=== PATIENT | female | born 1945 | race Two or more races ===

== ENCOUNTER 2017-01-03 22:28 | Emergency (ER) | payer MEDICAID ==
[~2017-01-03] VITALS: Ht 154.9 cm; Wt 59.0 kg
[2017-01-03] MEDS ORDERED: ASPIRIN81 MG ORAL (22:38)
[2017-01-03] MEDS ORDERED: Lidocaine 1% 10mg/ml/EPI 0.01mg/ml 50ml INJ ONE (22:45)
[2017-01-03] MEDS ORDERED: Lidocaine 2% 20mg/ml/Epi 0.005mg/ml 20ml vial ONE (22:51)
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
[2017-01-03] MEDS ORDERED: Augmentin 875mg Tab ORAL ONE (23:15)
[2017-01-03 23:57] VITALS: BP 134/72
[2017-01-04] MEDS ORDERED: Lidocaine 2% 20mg/ml/Epi 0.005mg/ml 20ml vial INJ ONE
[2017-01-04] MEDS ORDERED: AUGMENTIN 875-1 EAC1 ORAL (00:16)
[2017-01-04] MEDS ORDERED: TYLENOL325 MG ORAL (00:16)
[2017-01-04] MEDS ORDERED: IBUPROFEN600 MG ORAL (00:16)
[2017-01-04 00:30] VITALS: BP 134/65
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
== END 2017-01-04 00:30 | disposition home or self-care (01) ==
LOC: EMR 22:56
DX: S01.531A Puncture wound without foreign body of lip, initial encounter (principal); S00.83XA Contusion of other part of head, initial encounter; V49.50XA Passenger injured in collision with unspecified motor vehicles in traffic accident, initial encounter; Y92.89 Other specified places as the place of occurrence of the external cause; I10 Essential (primary) hypertension; B69.0 Cysticercosis of central nervous system
CPT/HCPCS: 12011; 70450; 70486; 99284; Z7502

== ENCOUNTER 2018-04-12 03:08 | Inpatient (IN) | payer MEDICAID ==
[2018-04-12] VITALS (7 sets, daily range): BP systolic 108–144; BP diastolic 49–69
[~2018-04-12] VITALS: Ht 144.8 cm; Wt 66.7 kg
[~2018-04-12 03:08] MED LIST: ASPIRIN81 MG ORAL; AUGMENTIN 875-1 EAC1 ORAL; IBUPROFEN600 MG ORAL; TYLENOL325 MG ORAL
[2018-04-12] MEDS ORDERED: Morphine Sulfate 2mg/ml Inj IVP ONE (03:30)
--- NOTE | 2018-04-12 03:34 | Emergency Room Report ---
History of Present Illness General Chief Complaint: Nausea, Vomiting, and Diarrhea Source: Patient, Medical Record Present Illness HPI Is a 73-year-old female with history high blood pressure. She presents with chief complaint of body pain with nausea vomiting and diarrhea. Also with dysuria. She had dysuria frequency. 2 weeks. Saw her doctor 3 days ago and prescribed Keflex. She's only been on it for 3 days. She's also has nausea and vomiting and diarrhea for the last week. Diarrhea is small and frequent. Has generalized body pain. It is 8 out of 10. Allergies: Coded Allergies: No Known Allergies (Unverified , 01/03/17) Patient History Past Medical History: see triage record, old chart reviewed, HTN Past Surgical History: other Pertinent Family History: none Social History: Denies: smoking Now: No Immunizations: other Reviewed Nursing Documentation: PMH: Agreed; PSxH: Agreed Nursing Documentation-PMH Past Medical History: No History, Except For Hx Hypertension: Yes Hx Gastrointestinal Problems: Yes - Gastritis Review of Systems Eye: Denies: eye pain, blurred vision ENT: Denies: ear pain, nose congestion, throat swelling Respiratory: Denies: cough, shortness of breath Cardiovascular: Denies: chest pain, palpitations Gastrointestinal: Reports: diarrhea, nausea, vomiting; Denies: abdominal pain Genitourinary: Reports: dysuria Musculoskeletal: Denies: back pain, joint pain Skin: Denies: rash Neurological: Denies: headache, numbness Endocrine: Denies: increased thirst, increased urine Hematologic/Lymphatic: Denies: easy bruising All Other Systems: negative except mentioned in HPI Physical Exam Vital Signs Date Time Temp Pulse Resp B/P (MAP) Pulse Ox O2 Delivery O2 Flow Rate FiO2 04/12/18 03:13 97.9 74 25 161/80 93 Room Air 97.9 vitals with high blood pressure Sp02 EP Interpretation: reviewed, normal General Appearance: well appearing, no apparent distress, alert Head: normocephalic, atraumatic Eyes: bilateral eye PERRL, bilateral eye EOMI ENT: hearing grossly normal, normal pharynx Neck: full range of motion, supple, no meningismus Respiratory: chest non-tender, lungs clear, normal breath sounds Cardiovascular #1: regular rate, rhythm, no murmur Gastrointestinal: normal bowel sounds, non tender, no mass, no organomegaly, no bruit, non-distended Musculoskeletal: back normal, gait/station normal, normal range of motion Neurologic: alert, oriented x3 Psychiatric: mood/affect normal Skin: warm/dry Medical Decision Making Diagnostic Impression: Primary Impression: Hyponatremia Additional Impression: Nausea, vomiting, and diarrhea ER Course Patient presents with protracted diarrhea and has hyponatremia. No evidence of UTI. No evidence of sepsis. Patient hydrated here. Will admit versus transfer based on insurance. I discussed case with Dr. Richardson who will admit. Lab Results Impression labs with hyponatremia Rhythm Strip Diag. Results Rhythm Strip Time: 05:06 EP Interpretation: yes Rate: 65 Rhythm: NSR, no PVC's, no ectopy Chest X-Ray Diagnostic Results Chest X-Ray Diagnostic Results : Chest X-Ray Ordered: Yes # of Views/Limited/Complete: 1 View Indication: Shortness of Breath EP Interpretation: Yes Interpretation: no consolidation, no effusion, no pneumothorax, no acute cardiopulmonary disease Impression: No acute disease Electronically Signed by: Armando Nolasco MD Last Vital Signs Date Time Temp Pulse Resp B/P (MAP) Pulse Ox O2 Delivery O2 Flow Rate FiO2 04/12/18 03:13 97.9 74 25 161/80 93 Room Air 97.9 Status: improved Disposition: ADMITTED INPATIENT Condition: Serious Referrals: NOT CHOSEN TEAGAN/,REFERRING (PCP) ARMANDO NOLASCO M.D. Apr 12, 2018 03:34
[2018-04-12 04:15] LABS: APPEARANCE,URINE CLEAR; BILIRUBIN, URINE NEGATIVE (NEGATIVE); COLOR,URINE BROWN; GLUCOSE, URINE (UA) NEGATIVE (NEGATIVE); KETONES,URINE NEGATIVE (NEGATIVE); LEUKOCYTE ESTERASE ,URINE NEGATIVE (NEGATIVE); NITRITE,URINE NEGATIVE (NEGATIVE); PH,URINE 7 (4.5-8.0); PROTEIN,URINE NEGATIVE (NEGATIVE); UROBILINOGEN,URINE NORMAL MG/DL (0.0-1.0)
[2018-04-12 04:17] LABS: BASOPHILS % (AUTO) 1.2 % (0.0-2.0); EOSINOPHILS % (AUTO) 1.6 % (0.0-3.0); HEMATOCRIT 35.5 % (37.0-47.0); HEMOGLOBIN 12.4 G/DL (12.0-16.0); LYMPHOCYTES % (AUTO) 22.2 % (20.0-45.0); MEAN CORPUSCULAR VOLUME 78 FL (80-99); MONOCYTES % (AUTO) 12.3 % (1.0-10.0); NEUTROPHILS % (AUTO) 62.8 % (45.0-75.0); PLATELET COUNT 298 K/UL (150-450); RED BLOOD COUNT 4.56 M/UL (4.20-5.40); RED CELL DISTRIBUTION WIDTH 10.5 % (11.6-14.8); WHITE BLOOD COUNT 5.8 K/UL (4.8-10.8)
[2018-04-12 04:43] LABS: ALANINE AMINOTRANSFERASE 27 U/L (12-78); ALBUMIN 3.3 G/DL (3.4-5.0); ALBUMIN/GLOBULIN RATIO 0.8 (1.0-2.7); ALKALINE PHOSPHATASE 84 U/L (46-116); ANION GAP 9 mmol/L (5-15); ASPARTATE AMINO TRANSFERASE 46 U/L (15-37); BILIRUBIN,TOTAL 1.1 MG/DL (0.2-1.0); BLOOD UREA NITROGEN 4 mg/dL (7-18); CALCIUM 8.9 MG/DL (8.5-10.1); CARBON DIOXIDE 23 MMOL/L (21-32); CHLORIDE 86 MMOL/L (98-107); CREATININE 0.6 MG/DL (0.55-1.30); SODIUM 118 MMOL/L (136-145)
[2018-04-12 04:44] LABS: BILIRUBIN,DIRECT 0.1 MG/DL (0.0-0.3)
[2018-04-12] MEDS ORDERED: OMEPRAZOLE20 M2 ORAL (05:41)
[2018-04-12] MEDS ORDERED: HYDROCHLOROTH12.5 M2 ORAL (05:41)
[2018-04-12] MEDS ORDERED: Morphine Sulfate 2mg/ml Inj IVP PRN (06:00)
[2018-04-12] MEDS ORDERED: CEPHALEXIN500 MG ORAL (07:17)
[2018-04-12] MEDS: Aspirin Baby 81mg ORAL SCH (09:21)
[2018-04-12] MEDS: Heparin 5000 units/ml inj SUBQ SCH ×2 (09:22→20:51)
--- NOTE | 2018-04-12 12:02 | Diagnostic Imaging Report ---
Indication: Shortness of breath Technique: One view of the chest Comparison: Findings: Lungs and pleural spaces are clear. Heart size is normal Impression: No acute process
[2018-04-12 14:11] LABS: APPEARANCE,URINE CLEAR; BILIRUBIN, URINE NEGATIVE (NEGATIVE); GLUCOSE, URINE (UA) NEGATIVE (NEGATIVE); KETONES,URINE NEGATIVE (NEGATIVE); LEUKOCYTE ESTERASE ,URINE NEGATIVE (NEGATIVE); NITRITE,URINE NEGATIVE (NEGATIVE); PH,URINE 7 (4.5-8.0); PROTEIN,URINE NEGATIVE (NEGATIVE); UROBILINOGEN,URINE NORMAL MG/DL (0.0-1.0)
[2018-04-12 14:21] LABS: COLOR,URINE YELLOW
--- NOTE | 2018-04-12 14:22 | Consultation ---
History of Present Illness General Date patient seen: Apr 12, 2018 Chief Complaint: Nausea, Vomiting, and Diarrhea Present Illness HPI 73-year-old female with PMHx of high blood pressure presented to ER with chief complaint of body pain with nausea vomiting and diarrhea and dysuria, frequency for 2 weeks. . She's also has nausea and vomiting and diarrhea for the last week. Diarrhea is small and frequent. She was found to have Na of 118 and admitted to telemetry for further work up. Allergies: Coded Allergies: No Known Allergies (Unverified , 01/03/17) Medication History Scheduled Aspirin* (Aspirin*), 81 MG ORAL DAILY, (Reported) Cephalexin* (Keflex*), 500 MG ORAL EVERY 6 HOURS, (Reported) Hydrochlorothiazide* (Hydrochlorothiazide*), 12.5 MG ORAL DAILY, (Reported) Omeprazole (Omeprazole), 20 MG ORAL DAILY, (Reported) Scheduled PRN Acetaminophen (Tylenol), 650 MG ORAL Q8HR PRN for Prn Pain/Headache/Temp > 101 Patient History Healthcare decision maker Teresa Chan (son) Resuscitation status Full Code Advanced Directive on File No Past Medical/Surgical History Past Medical/Surgical History: (1) History of hypertension Review of Systems Constitutional: Reports: weakness Gastrointestinal: Reports: diarrhea, nausea Physical Exam General Appearance: WD/WN Lines, tubes and drains: peripheral HEENT: normocephalic, anicteric Neck: non-tender, normal alignment Respiratory/Chest: chest wall non-tender, lungs clear, normal breath sounds Breasts: no masses Cardiovascular/Chest: normal peripheral pulses Genitourinary/Rectal: normal genital exam Extremities: normal range of motion Last 24 Hour Vital Signs Date Time Temp Pulse Resp B/P (MAP) Pulse Ox O2 Delivery O2 Flow Rate FiO2 04/12/18 11:45 97.7 66 20 129/68 (88) 96 97.7 04/12/18 09:49 Room Air 04/12/18 08:00 97.7 63 20 112/58 (76) 97 97.7 04/12/18 06:45 98.0 69 14 108/49 96 Room Air 04/12/18 06:45 97.4 70 18 128/65 (86) 97 97.4 04/12/18 06:25 98.0 69 14 108/49 98 Room Air 98.0 04/12/18 04:33 97.2 65 14 144/69 96 Room Air 97.2 04/12/18 03:13 97.9 74 25 161/80 93 Room Air 97.9 Intake and Output 04/11/18 04/12/18 19:00 07:00 Intake Total 2000 ml Balance 2000 ml IV Total 2000 ml Laboratory Tests Test 04/12/18 03:21 04/12/18 03:57 04/12/18 06:45 04/12/18 13:39 Urine Color Brown Yellow Urine Appearance Clear Clear Urine pH 7 (4.5-8.0) 7 (4.5-8.0) Urine Specific [place]wn 1.005 (1.005-1.035) 1.005 (1.005-1.035) Urine Protein Negative (NEGATIVE) Negative (NEGATIVE) Urine Glucose (UA) Negative (NEGATIVE) Negative (NEGATIVE) Urine Ketones Negative (NEGATIVE) Negative (NEGATIVE) Urine Blood Negative (NEGATIVE) Negative (NEGATIVE) Urine Nitrite Negative (NEGATIVE) Negative (NEGATIVE) Urine Bilirubin Negative (NEGATIVE) Negative (NEGATIVE) Urine Urobilinogen Normal MG/DL (0.0-1.0) Normal MG/DL (0.0-1.0) Urine Leukocyte Esterase Negative (NEGATIVE) Negative (NEGATIVE) Urine RBC 0-2 /HPF (0 - 2) Pending Urine WBC 0-2 /HPF (0 - 2) Pending Urine Squamous Epithelial Cells Occasional /LPF Pending Urine Bacteria Occasional /HPF (NONE) Pending White Blood Count 5.8 K/UL (4.8-10.8) Red Blood Count 4.56 M/UL (4.20-5.40) Hemoglobin 12.4 G/DL (12.0-16.0) Hematocrit 35.5 % (37.0-47.0) L Mean Corpuscular Volume 78 FL (80-99) L Mean Corpuscular Hemoglobin 27.1 PG (27.0-31.0) Mean Corpuscular Hemoglobin Concent 34.8 G/DL (32.0-36.0) Red Cell Distribution Width 10.5 % (11.6-14.8) L Platelet Count 298 K/UL (150-450) Mean Platelet Volume 6.6 FL (6.5-10.1) Neutrophils (%) (Auto) 62.8 % (45.0-75.0) Lymphocytes (%) (Auto) 22.2 % (20.0-45.0) Monocytes (%) (Auto) 12.3 % (1.0-10.0) H Eosinophils (%) (Auto) 1.6 % (0.0-3.0) Basophils (%) (Auto) 1.2 % (0.0-2.0) Sodium Level 118 MMOL/L (136-145) *L Potassium Level 4.0 MMOL/L (3.5-5.1) Chloride Level 86 MMOL/L (98-107) L Carbon Dioxide Level 23 MMOL/L (21-32) Anion Gap 9 mmol/L (5-15) Blood Urea Nitrogen 4 mg/dL (7-18) L Creatinine 0.6 MG/DL (0.55-1.30) Estimat Glomerular Filtration Rate mL/min (>60) Glucose Level 107 MG/DL (74-106) H Calcium Level 8.9 MG/DL (8.5-10.1) Total Bilirubin 1.1 MG/DL (0.2-1.0) H Direct Bilirubin 0.1 MG/DL (0.0-0.3) Aspartate Amino Transf (AST/SGOT) 46 U/L (15-37) H Alanine Aminotransferase (ALT/SGPT) 27 U/L (12-78) Alkaline Phosphatase 84 U/L (46-116) Total Protein 7.7 G/DL (6.4-8.2) Albumin 3.3 G/DL (3.4-5.0) L Globulin 4.4 g/dL Albumin/Globulin Ratio 0.8 (1.0-2.7) L Osmolality 264 mOsm/kg (297-317) L Uric Acid 1.5 MG/DL (2.6-7.2) L Thyroid Stimulating Hormone (TSH) 1.334 uiU/mL (0.358-3.740) Free Thyroxine 1.57 NG/DL (0.76-1.46) H Free Triiodothyronine 2.7 pg/mL (2.3-4.2) Cortisol Pending Urine Osmolality Pending Urine Random Sodium Pending Height (Feet): 4 Height (Inches): 9.00 Weight (Pounds): 147 Medications Current Medications Medications (Trade) Dose Ordered Sig/Margot Route PRN Reason Start Time Stop Time Status Last Admin Dose Admin Acetaminophen (Tylenol) 650 mg Q8HR PRN ORAL Prn Pain/Headache/Temp > 101 04/12/18 06:00 05/12/18 05:59 Aspirin (ASA) 81 mg DAILY ORAL 04/12/18 09:00 05/12/18 08:59 04/12/18 09:21 Dextrose (Dextrose 50%) 25 ml STAT PRN IV Hypoglycemia 04/12/18 06:00 05/12/18 05:59 Dextrose (Dextrose 50%) 50 ml STAT PRN IV Hypoglycemia 04/12/18 06:00 05/12/18 05:59 Dextrose/ Electrolytes 1,000 ml @ 100 mls/hr Q10H IV 04/12/18 06:52 05/12/18 06:51 04/12/18 09:34 Diphenhydramine HCl (Benadryl) 25 mg Q6H PRN ORAL Itching/Pruritis 04/12/18 06:00 05/12/18 05:59 Heparin Sodium (Porcine) (Heparin 5000 units/ml) 5,000 units EVERY 12 HOURS SUBQ 04/12/18 09:00 05/12/18 08:59 04/12/18 09:22 Morphine Sulfate (Morphine Sulfate) 2 mg Q6HR PRN IVP Severe Breakthru Pain (>7) 04/12/18 06:00 04/19/18 05:59 Ondansetron HCl (Zofran) 4 mg Q6H PRN IVP Nausea & Vomiting 04/12/18 06:00 05/12/18 05:59 Assessment/Plan Problem List: (1) Hyponatremia ICD Codes: E87.1 - Hypo-osmolality and hyponatremia; R19.7 - Diarrhea, unspecified SNOMED: 77083035 (2) History of hypertension ICD Codes: Z86.79 - Personal history of other diseases of the circulatory system SNOMED: 395751429 (3) Nausea, vomiting, and diarrhea ICD Codes: R11.2 - Nausea with vomiting, unspecified; R19.7 - Diarrhea, unspecified SNOMED: 6199941 Assessment/Plan hyponatremia secondary to HCTZ and diarrhea. IV fluids SIADH work up symptomatic treatment monitor BP urine and stool samples. Sharyn Allred MD Apr 12, 2018 14:22
--- NOTE | 2018-04-12 18:57 | History & Physical ---
History and Physical History & Physicial Dictated for Int Med-Dr Richardson no. [id number]. Shane Yousif MD Apr 12, 2018 18:57
--- NOTE | 2018-04-12 22:45 | History and Physical Report ---
DATE OF ADMISSION: 04/12/2018 CHIEF COMPLAINT: The patient is a 73-year-old female, who presents with chief complaint of "I wasn't feeling well." HISTORY OF PRESENT ILLNESS: The patient was diagnosed by her primary care physician with urinary tract infection on Sunday, April 08, 2018. The patient was discharged home with an unknown antibiotic. The patient states she continued to not feel well. The patient had subjective fevers and chills. The patient also had nausea, vomiting, and diarrhea. The patient presented to [facility]. The patient was found to be severely hyponatremic with sodium of 118. The patient was admitted for hyponatremia and urinary tract infection. REVIEW OF SYSTEMS: CONSTITUTIONAL: The patient denies weight loss or weight gain. The patient denies fever or chills. HEENT: The patient denies ear or throat pain. The patient denies headache. CARDIOVASCULAR: The patient denies palpitations or chest pain. CHEST: The patient denies wheeze or shortness of breath. ABDOMINAL: The patient denies nausea, vomiting, diarrhea, or constipation. GENITOURINARY: The patient denies dysuria or increased frequency of urination. NEUROMUSCULAR: The patient denies seizures or generalized weakness. PAST MEDICAL HISTORY: Significant for hypertension. PAST SURGICAL HISTORY: The patient denies. CURRENT MEDICATIONS: 1. Hydrochlorothiazide 12.5 mg p.o. daily. 2. Omeprazole 20 mg p.o. daily. 3. Aspirin 81 mg p.o. daily. ALLERGIES: No known drug allergies. SOCIAL HISTORY: The patient is and lives with her . The patient denies tobacco or alcohol use. PHYSICAL EXAMINATION: VITAL SIGNS: Temperature 98.0, respirations 14, pulse 69, blood pressure 108/49. GENERAL: The patient is a well-developed, well-nourished female, in no apparent distress. HEENT: Eyes, pupils equal and responsive to light and accommodation. Extraocular movements are intact. NECK: Supple. No lymphadenopathy. CHEST: Clear to auscultation bilaterally without wheezes or rales. CARDIOVASCULAR: Regular rate. S1, S2 normal without murmurs, rubs, or gallops. ABDOMEN: Soft, nontender, and nondistended with positive bowel sounds. No evidence of hepatosplenomegaly. Currently, no rebound or guarding noted. EXTREMITIES: Negative for clubbing, cyanosis, or edema. RECTAL: Refused. GENITAL: Refused. NEUROLOGIC: Cranial nerves II through XII are grossly intact without focal deficits. Motor strength is 5/5 bilaterally intact. Deep tendon reflexes are 2+, plantar. LABORATORY STUDIES: WBC 5.8, hemoglobin 12.4, hematocrit 35.5, platelets 298,000. Sodium 118, potassium 4.0, chloride 86, CO2 23, BUN 4, creatinine 0.6, glucose 107. Urine osmolality 264. ASSESSMENT: This is a 73-year-old female with: 1. Hyponatremia. 2. Urinary tract infection. 3. Hypertension. TREATMENT: 1. Hyponatremia. The patient is currently receiving normal saline intravenously. A repeat sodium level is pending. A Nephrology consultation has been obtained with Dr. Black. Hyponatremia may be secondary to hydrochlorothiazide versus SIADH. We will follow recommendations of Nephrology. 2. Urinary tract infection. The patient has received Keflex for a total of 5 days. 3. Hypertension. The patient is currently hypotensive. Hold antihypertensive medications for now. Shane Yousif M.D. DR: Augustine JOB#: [id number] CC:
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
[2018-04-13] VITALS: BP 99/51
[2018-04-13 04:00] VITALS: BP 120/68
[2018-04-13 07:01] LABS: BASOPHILS % (AUTO) 2.4 % (0.0-2.0); EOSINOPHILS % (AUTO) 1.5 % (0.0-3.0); HEMATOCRIT 34.3 % (37.0-47.0); HEMOGLOBIN 11.6 G/DL (12.0-16.0); LYMPHOCYTES % (AUTO) 10.4 % (20.0-45.0); MEAN CORPUSCULAR VOLUME 82 FL (80-99); MONOCYTES % (AUTO) 13.5 % (1.0-10.0); NEUTROPHILS % (AUTO) 72.1 % (45.0-75.0); PLATELET COUNT 247 K/UL (150-450); RED CELL DISTRIBUTION WIDTH 11.7 % (11.6-14.8); WHITE BLOOD COUNT 4.9 K/UL (4.8-10.8)
[2018-04-13 07:34] LABS: ALANINE AMINOTRANSFERASE 29 U/L (12-78); ALBUMIN 2.9 G/DL (3.4-5.0); ALBUMIN/GLOBULIN RATIO 0.8 (1.0-2.7); ALKALINE PHOSPHATASE 76 U/L (46-116); ANION GAP 7 mmol/L (5-15); ASPARTATE AMINO TRANSFERASE 22 U/L (15-37); BILIRUBIN,TOTAL 0.5 MG/DL (0.2-1.0); BLOOD UREA NITROGEN 4 mg/dL (7-18); CALCIUM 8.5 MG/DL (8.5-10.1); CARBON DIOXIDE 24 MMOL/L (21-32); CHLORIDE 105 MMOL/L (98-107); CREATININE 0.8 MG/DL (0.55-1.30); PHOSPHORUS 2.7 MG/DL (2.5-4.9); POTASSIUM 4.3 MMOL/L (3.5-5.1); SODIUM 136 MMOL/L (136-145)
[2018-04-13 08:00] VITALS: BP 129/67
[2018-04-13] MEDS: Aspirin Baby 81mg ORAL SCH (08:28)
[2018-04-13] MEDS: Heparin 5000 units/ml inj SUBQ SCH ×2 (08:29→20:14)
[2018-04-13] MEDS ORDERED: Tubing IV Secondary IV ONE (10:51)
[2018-04-13 12:00] VITALS: BP 126/73
--- NOTE | 2018-04-13 12:49 | Pulmonology Progress Note ---
Assessment/Plan Problems: (1) Hyponatremia (2) History of hypertension (3) Nausea, vomiting, and diarrhea Assessment/Plan Na better decrease IV fluids monitor BP, since pt has hx of hypertension symptomatic treatment dvt prophylaxis check labs in am dc planning soon if continues to improve. Subjective ROS Limited/Unobtainable: No Constitutional: Reports: no symptoms Allergies: Coded Allergies: No Known Allergies (Unverified , 01/03/17) Objective Last 24 Hour Vital Signs Date Time Temp Pulse Resp B/P (MAP) Pulse Ox O2 Delivery O2 Flow Rate FiO2 04/13/18 12:00 98.2 65 18 126/73 (90) 98 98.2 04/13/18 09:00 Room Air 04/13/18 08:00 97.5 81 19 129/67 (87) 98 97.5 04/13/18 04:00 97.9 71 18 120/68 (85) 97 97.9 04/13/18 00:00 97.9 80 18 99/51 (67) 95 97.9 04/12/18 21:00 Room Air 04/12/18 20:00 98.6 76 17 130/64 (86) 97 98.6 04/12/18 15:32 97.9 64 21 120/66 (84) 99 97.9 Intake and Output 04/12/18 04/13/18 19:00 07:00 Intake Total 1910 ml 1000 ml Balance 1910 ml 1000 ml Intake Oral 960 ml IV Total 950 ml 1000 ml # Voids 4 4 # Bowel Movements 2 General Appearance: WD/WN HEENT: normocephalic Respiratory/Chest: chest wall non-tender, lungs clear Breasts: no masses Cardiovascular: normal peripheral pulses Abdomen: normal bowel sounds, soft, non tender, no scars Extremities: no clubbing Neurologic/Psychiatric: communication spec II-XII grossly normal Lymphatic: no neck adenopathy Laboratory Tests 04/12/18 13:39: Urine Color Yellow, Urine Appearance Clear, Urine pH 7, Urine Specific Prue 1.005, Urine Protein Negative, Urine Glucose (UA) Negative, Urine Ketones Negative, Urine Blood Negative, Urine Nitrite Negative, Urine Bilirubin Negative , Urine Urobilinogen Normal, Urine Leukocyte Esterase Negative, Urine RBC 0-2, Urine WBC 0-2, Urine Squamous Epithelial Cells Few, Urine Bacteria Few, Urine Osmolality 105L, Urine Random Sodium 28 04/13/18 06:20: White Blood Count 4.9, Red Blood Count 4.20, Hemoglobin 11.6L, Hematocrit 34.3L , Mean Corpuscular Volume 82, Mean Corpuscular Hemoglobin 27.6, Mean Corpuscular Hemoglobin Concent 33.8, Red Cell Distribution Width 11.7, Platelet Count 247, Mean Platelet Volume 6.7, Neutrophils (%) (Auto) 72.1, Lymphocytes (% ) (Auto) 10.4L, Monocytes (%) (Auto) 13.5H, Eosinophils (%) (Auto) 1.5, Basophils (%) (Auto) 2.4H, Prothrombin Time 10.1, Prothromb Time International Ratio 1.0, Activated Partial Thromboplast Time 26, Sodium Level 136, Potassium Level 4.3, Chloride Level 105, Carbon Dioxide Level 24, Anion Gap 7, Blood Urea Nitrogen 4L, Creatinine 0.8, Estimat Glomerular Filtration Rate , Glucose Level 92, Calcium Level 8.5, Phosphorus Level 2.7, Magnesium Level 2.1, Total Bilirubin 0.5, Aspartate Amino Transf (AST/SGOT) 22, Alanine Aminotransferase ( ALT/SGPT) 29, Alkaline Phosphatase 76, Total Protein 6.6, Albumin 2.9L, Globulin 3.7, Albumin/Globulin Ratio 0.8L, Thyroid Stimulating Hormone (TSH) 0.749 Current Medications Medications (Trade) Dose Ordered Sig/Margot Route PRN Reason Start Time Stop Time Status Last Admin Dose Admin Acetaminophen (Tylenol) 650 mg Q8HR PRN ORAL Prn Pain/Headache/Temp > 101 04/12/18 06:00 05/12/18 05:59 Aspirin (ASA) 81 mg DAILY ORAL 04/12/18 09:00 05/12/18 08:59 04/13/18 08:28 Dextrose (Dextrose 50%) 25 ml STAT PRN IV Hypoglycemia 04/12/18 06:00 05/12/18 05:59 Dextrose (Dextrose 50%) 50 ml STAT PRN IV Hypoglycemia 04/12/18 06:00 05/12/18 05:59 Dextrose/ Electrolytes 1,000 ml @ 100 mls/hr Q10H IV 04/12/18 06:52 05/12/18 06:51 04/13/18 08:30 Diphenhydramine HCl (Benadryl) 25 mg Q6H PRN ORAL Itching/Pruritis 04/12/18 06:00 05/12/18 05:59 Heparin Sodium (Porcine) (Heparin 5000 units/ml) 5,000 units EVERY 12 HOURS SUBQ 04/12/18 09:00 05/12/18 08:59 04/13/18 08:29 Morphine Sulfate (Morphine Sulfate) 2 mg Q6HR PRN IVP Severe Breakthru Pain (>7) 04/12/18 06:00 04/19/18 05:59 Ondansetron HCl (Zofran) 4 mg Q6H PRN IVP Nausea & Vomiting 04/12/18 06:00 05/12/18 05:59 Sharyn Allred MD Apr 13, 2018 12:49
--- NOTE | 2018-04-13 15:07 | Consultation ---
History of Present Illness General Date patient seen: Apr 13, 2018 Time patient seen: 15:00 Chief Complaint: Nausea, Vomiting, and Diarrhea Present Illness HPI 73 year old female patient came in due to headache 1 week ago, nausea and vomiting 2 weeks ago, diarrhea 1 week ago. She had a urinary tract infection and was on antibiotics. She has a hx of HTN. She was admitted for hyponatremia wtih NA 118. No head trauma, no increased/ decreased urination. Cardiology consulted for chest pain, palpitations, PVCs. Allergies: Coded Allergies: No Known Allergies (Unverified , 01/03/17) Medication History Scheduled Aspirin* (Aspirin*), 81 MG ORAL DAILY, (Reported) Cephalexin* (Keflex*), 500 MG ORAL EVERY 6 HOURS, (Reported) Hydrochlorothiazide* (Hydrochlorothiazide*), 12.5 MG ORAL DAILY, (Reported) Omeprazole (Omeprazole), 20 MG ORAL DAILY, (Reported) Scheduled PRN Acetaminophen (Tylenol), 650 MG ORAL Q8HR PRN for Prn Pain/Headache/Temp > 101 Patient History Healthcare decision maker Teresa Chan (son) Resuscitation status Full Code Advanced Directive on File No Review of Systems Constitutional: Reports: no symptoms Eye: Reports: no symptoms ENT: Reports: no symptoms Respiratory: Reports: no symptoms Cardiovascular: Reports: chest pain, palpitations Gastrointestinal: Reports: no symptoms Genitourinary: Reports: no symptoms Musculoskeletal: Reports: no symptoms Skin: Reports: no symptoms Psychiatric: Reports: no symptoms Neurological: Reports: headache Endocrine: Reports: no symptoms Hematologic/Lymphatic: Reports: no symptoms Physical Exam General Appearance: no apparent distress, alert Lines, tubes and drains: peripheral HEENT: normocephalic, atraumatic Neck: non-tender, normal alignment Respiratory/Chest: chest wall non-tender, lungs clear Cardiovascular/Chest: normal peripheral pulses, normal rate Abdomen: normal bowel sounds, non tender Extremities: normal range of motion, non-tender Skin Exam: normal pigmentation, warm/dry, cyanotic 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 Last 24 Hour Vital Signs Date Time Temp Pulse Resp B/P (MAP) Pulse Ox O2 Delivery O2 Flow Rate FiO2 04/13/18 12:00 98.2 65 18 126/73 (90) 98 98.2 04/13/18 09:00 Room Air 04/13/18 08:00 97.5 81 19 129/67 (87) 98 97.5 04/13/18 04:00 97.9 71 18 120/68 (85) 97 97.9 04/13/18 00:00 97.9 80 18 99/51 (67) 95 97.9 04/12/18 21:00 Room Air 04/12/18 20:00 98.6 76 17 130/64 (86) 97 98.6 04/12/18 15:32 97.9 64 21 120/66 (84) 99 97.9 Intake and Output 04/12/18 04/13/18 19:00 07:00 Intake Total 1910 ml 1000 ml Balance 1910 ml 1000 ml Intake Oral 960 ml IV Total 950 ml 1000 ml # Voids 4 4 # Bowel Movements 2 Laboratory Tests Test 04/13/18 06:20 White Blood Count 4.9 K/UL (4.8-10.8) Red Blood Count 4.20 M/UL (4.20-5.40) Hemoglobin 11.6 G/DL (12.0-16.0) L Hematocrit 34.3 % (37.0-47.0) L Mean Corpuscular Volume 82 FL (80-99) Mean Corpuscular Hemoglobin 27.6 PG (27.0-31.0) Mean Corpuscular Hemoglobin Concent 33.8 G/DL (32.0-36.0) Red Cell Distribution Width 11.7 % (11.6-14.8) Platelet Count 247 K/UL (150-450) Mean Platelet Volume 6.7 FL (6.5-10.1) Neutrophils (%) (Auto) 72.1 % (45.0-75.0) Lymphocytes (%) (Auto) 10.4 % (20.0-45.0) L Monocytes (%) (Auto) 13.5 % (1.0-10.0) H Eosinophils (%) (Auto) 1.5 % (0.0-3.0) Basophils (%) (Auto) 2.4 % (0.0-2.0) H Prothrombin Time 10.1 SEC (9.30-11.50) Prothromb Time International Ratio 1.0 (0.9-1.1) Activated Partial Thromboplast Time 26 SEC (23-33) Sodium Level 136 MMOL/L (136-145) Potassium Level 4.3 MMOL/L (3.5-5.1) Chloride Level 105 MMOL/L (98-107) Carbon Dioxide Level 24 MMOL/L (21-32) Anion Gap 7 mmol/L (5-15) Blood Urea Nitrogen 4 mg/dL (7-18) L Creatinine 0.8 MG/DL (0.55-1.30) Estimat Glomerular Filtration Rate mL/min (>60) Glucose Level 92 MG/DL (74-106) Calcium Level 8.5 MG/DL (8.5-10.1) Phosphorus Level 2.7 MG/DL (2.5-4.9) Magnesium Level 2.1 MG/DL (1.8-2.4) Total Bilirubin 0.5 MG/DL (0.2-1.0) Aspartate Amino Transf (AST/SGOT) 22 U/L (15-37) Alanine Aminotransferase (ALT/SGPT) 29 U/L (12-78) Alkaline Phosphatase 76 U/L (46-116) Total Protein 6.6 G/DL (6.4-8.2) Albumin 2.9 G/DL (3.4-5.0) L Globulin 3.7 g/dL Albumin/Globulin Ratio 0.8 (1.0-2.7) L Thyroid Stimulating Hormone (TSH) 0.749 uiU/mL (0.358-3.740) Height (Feet): 4 Height (Inches): 9.00 Weight (Pounds): 147 Medications Current Medications Medications (Trade) Dose Ordered Sig/Margot Route PRN Reason Start Time Stop Time Status Last Admin Dose Admin Acetaminophen (Tylenol) 650 mg Q8HR PRN ORAL Prn Pain/Headache/Temp > 101 04/12/18 06:00 05/12/18 05:59 Aspirin (ASA) 81 mg DAILY ORAL 04/12/18 09:00 05/12/18 08:59 04/13/18 08:28 Dextrose (Dextrose 50%) 25 ml STAT PRN IV Hypoglycemia 04/12/18 06:00 05/12/18 05:59 Dextrose (Dextrose 50%) 50 ml STAT PRN IV Hypoglycemia 04/12/18 06:00 05/12/18 05:59 Dextrose/ Electrolytes 1,000 ml @ 50 mls/hr Q20H IV 04/13/18 14:00 05/13/18 13:59 04/13/18 14:16 Diphenhydramine HCl (Benadryl) 25 mg Q6H PRN ORAL Itching/Pruritis 04/12/18 06:00 05/12/18 05:59 Heparin Sodium (Porcine) (Heparin 5000 units/ml) 5,000 units EVERY 12 HOURS SUBQ 04/12/18 09:00 05/12/18 08:59 04/13/18 08:29 Morphine Sulfate (Morphine Sulfate) 2 mg Q6HR PRN IVP Severe Breakthru Pain (>7) 04/12/18 06:00 04/19/18 05:59 Ondansetron HCl (Zofran) 4 mg Q6H PRN IVP Nausea & Vomiting 04/12/18 06:00 05/12/18 05:59 Assessment/Plan Status: stable Assessment/Plan Assessment: 1. Hyponatremia. 2. Urinary tract infection. 3. Hypertension. 4. PVC Plan: D/c HCTZ as it can cause hyponatremia Monitor BP IV fluids Abx for UTI Monitor PVCs Outpatient echocardiogram/stress test Aspirin urine electrolytes Dispo planning Matthew Henderson MD Apr 13, 2018 15:07
[2018-04-13 16:00] VITALS: BP 120/69
--- NOTE | 2018-04-13 16:59 | Internal Med Progress Note ---
Subjective Date of Service: Apr 13, 2018 Physician Name Shane Yousif Attending Physician Manuel Richardson MD Current Medications Medications (Trade) Dose Ordered Sig/Margot Route PRN Reason Start Time Stop Time Status Last Admin Dose Admin Acetaminophen (Tylenol) 650 mg Q8HR PRN ORAL Prn Pain/Headache/Temp > 101 04/12/18 06:00 05/12/18 05:59 Aspirin (ASA) 81 mg DAILY ORAL 04/12/18 09:00 05/12/18 08:59 04/13/18 08:28 Dextrose (Dextrose 50%) 25 ml STAT PRN IV Hypoglycemia 04/12/18 06:00 05/12/18 05:59 Dextrose (Dextrose 50%) 50 ml STAT PRN IV Hypoglycemia 04/12/18 06:00 05/12/18 05:59 Dextrose/ Electrolytes 1,000 ml @ 50 mls/hr Q20H IV 04/13/18 14:00 05/13/18 13:59 04/13/18 14:16 Diphenhydramine HCl (Benadryl) 25 mg Q6H PRN ORAL Itching/Pruritis 04/12/18 06:00 05/12/18 05:59 Heparin Sodium (Porcine) (Heparin 5000 units/ml) 5,000 units EVERY 12 HOURS SUBQ 04/12/18 09:00 05/12/18 08:59 04/13/18 08:29 Morphine Sulfate (Morphine Sulfate) 2 mg Q6HR PRN IVP Severe Breakthru Pain (>7) 04/12/18 06:00 04/19/18 05:59 Ondansetron HCl (Zofran) 4 mg Q6H PRN IVP Nausea & Vomiting 04/12/18 06:00 05/12/18 05:59 Allergies: Coded Allergies: No Known Allergies (Unverified , 01/03/17) ROS Limited/Unobtainable: No Constitutional: Reports: no symptoms HEENT: Reports: no symptoms Cardiovascular: Reports: no symptoms Respiratory: Reports: no symptoms Gastrointestinal/Abdominal: Reports: no symptoms Genitourinary: Reports: no symptoms Neurologic/Psychiatric: Reports: no symptoms Subjective 73 YO F admitted with altered mental status, now hyponatremia. Cover for Int Figueroa-Dr Richardson Objective Last Vital Signs Date Time Temp Pulse Resp B/P (MAP) Pulse Ox O2 Delivery O2 Flow Rate FiO2 04/13/18 12:00 98.2 65 18 126/73 (90) 98 98.2 04/13/18 09:00 Room Air Laboratory Tests Test 04/13/18 06:20 White Blood Count 4.9 K/UL (4.8-10.8) Red Blood Count 4.20 M/UL (4.20-5.40) Hemoglobin 11.6 G/DL (12.0-16.0) L Hematocrit 34.3 % (37.0-47.0) L Mean Corpuscular Volume 82 FL (80-99) Mean Corpuscular Hemoglobin 27.6 PG (27.0-31.0) Mean Corpuscular Hemoglobin Concent 33.8 G/DL (32.0-36.0) Red Cell Distribution Width 11.7 % (11.6-14.8) Platelet Count 247 K/UL (150-450) Mean Platelet Volume 6.7 FL (6.5-10.1) Neutrophils (%) (Auto) 72.1 % (45.0-75.0) Lymphocytes (%) (Auto) 10.4 % (20.0-45.0) L Monocytes (%) (Auto) 13.5 % (1.0-10.0) H Eosinophils (%) (Auto) 1.5 % (0.0-3.0) Basophils (%) (Auto) 2.4 % (0.0-2.0) H Prothrombin Time 10.1 SEC (9.30-11.50) Prothromb Time International Ratio 1.0 (0.9-1.1) Activated Partial Thromboplast Time 26 SEC (23-33) Sodium Level 136 MMOL/L (136-145) Potassium Level 4.3 MMOL/L (3.5-5.1) Chloride Level 105 MMOL/L (98-107) Carbon Dioxide Level 24 MMOL/L (21-32) Anion Gap 7 mmol/L (5-15) Blood Urea Nitrogen 4 mg/dL (7-18) L Creatinine 0.8 MG/DL (0.55-1.30) Estimat Glomerular Filtration Rate mL/min (>60) Glucose Level 92 MG/DL (74-106) Calcium Level 8.5 MG/DL (8.5-10.1) Phosphorus Level 2.7 MG/DL (2.5-4.9) Magnesium Level 2.1 MG/DL (1.8-2.4) Total Bilirubin 0.5 MG/DL (0.2-1.0) Aspartate Amino Transf (AST/SGOT) 22 U/L (15-37) Alanine Aminotransferase (ALT/SGPT) 29 U/L (12-78) Alkaline Phosphatase 76 U/L (46-116) Total Protein 6.6 G/DL (6.4-8.2) Albumin 2.9 G/DL (3.4-5.0) L Globulin 3.7 g/dL Albumin/Globulin Ratio 0.8 (1.0-2.7) L Thyroid Stimulating Hormone (TSH) 0.749 uiU/mL (0.358-3.740) Intake and Output 04/12/18 04/13/18 19:00 07:00 Intake Total 1910 ml 1000 ml Balance 1910 ml 1000 ml Intake Oral 960 ml IV Total 950 ml 1000 ml # Voids 4 4 # Bowel Movements 2 Objective PHYSICAL EXAMINATION: VITAL SIGNS: Temperature 98.0, respirations 14, pulse 69, blood pressure 108/49. GENERAL: The patient is a well-developed, well-nourished female, in no apparent distress. HEENT: Eyes, pupils equal and responsive to light and accommodation. Extraocular movements are intact. NECK: Supple. No lymphadenopathy. CHEST: Clear to auscultation bilaterally without wheezes or rales. CARDIOVASCULAR: Regular rate. S1, S2 normal without murmurs, rubs, or gallops. ABDOMEN: Soft, nontender, and nondistended with positive bowel sounds. No evidence of hepatosplenomegaly. Currently, no rebound or guarding noted. Assessment/Plan Problem List: (1) Altered mental status (2) HTN (hypertension) (3) Hyponatremia Assessment & Plan: ?HCTZ? Resolving. Continue IV fluids. D/C HCTZ Status: progressing Shane Yousif MD Apr 13, 2018 16:59
[2018-04-13] MEDS ORDERED: Miralax 17gm pkt ORAL PRN (19:30)
[2018-04-13] MEDS ORDERED: Sennosides 8.6mg ORAL PRN ×2 (19:30)
[2018-04-13 20:00] VITALS: BP 137/76
[2018-04-14] VITALS: BP 131/70
[2018-04-14 04:00] VITALS: BP 138/78
[2018-04-14 07:10] LABS: BASOPHILS % (AUTO) 1.6 % (0.0-2.0); EOSINOPHILS % (AUTO) 4.1 % (0.0-3.0); HEMATOCRIT 34.9 % (37.0-47.0); HEMOGLOBIN 11.6 G/DL (12.0-16.0); LYMPHOCYTES % (AUTO) 22.4 % (20.0-45.0); MEAN CORPUSCULAR VOLUME 82 FL (80-99); MONOCYTES % (AUTO) 15.3 % (1.0-10.0); NEUTROPHILS % (AUTO) 56.6 % (45.0-75.0); PLATELET COUNT 240 K/UL (150-450); RED BLOOD COUNT 4.24 M/UL (4.20-5.40); RED CELL DISTRIBUTION WIDTH 11.7 % (11.6-14.8); WHITE BLOOD COUNT 3.9 K/UL (4.8-10.8)
[2018-04-14 07:22] LABS: ALANINE AMINOTRANSFERASE 24 U/L (12-78); ALBUMIN 2.9 G/DL (3.4-5.0); ALBUMIN/GLOBULIN RATIO 0.8 (1.0-2.7); ALKALINE PHOSPHATASE 82 U/L (46-116); ANION GAP 4 mmol/L (5-15); ASPARTATE AMINO TRANSFERASE 20 U/L (15-37); BILIRUBIN,TOTAL 0.6 MG/DL (0.2-1.0); BLOOD UREA NITROGEN 5 mg/dL (7-18); CALCIUM 8.7 MG/DL (8.5-10.1); CARBON DIOXIDE 28 MMOL/L (21-32); CHLORIDE 103 MMOL/L (98-107); CREATININE 0.8 MG/DL (0.55-1.30); PHOSPHORUS 2.8 MG/DL (2.5-4.9); POTASSIUM 4.4 MMOL/L (3.5-5.1); SODIUM 134 MMOL/L (136-145)
--- NOTE | 2018-04-14 07:43 | Cardiology Progress Note ---
Assessment/Plan Status: stable Assessment/Plan Assessment: 1. Hyponatremia. 2. Urinary tract infection. 3. Hypertension. 4. PVC Plan: D/c HCTZ as it can cause hyponatremia NA normal today Monitor BP IV fluids Abx for UTI -> transition to PO Monitor PVCs Outpatient echocardiogram/stress test Aspirin urine electrolytes Dispo planning Subjective Cardiovascular: Reports: no symptoms Respiratory: Reports: no symptoms Gastrointestinal/Abdominal: Reports: no symptoms Genitourinary: Reports: no symptoms Subjective No acute events, no pain, vitals stable, NA normal Objective Last 24 Hour Vital Signs Date Time Temp Pulse Resp B/P (MAP) Pulse Ox O2 Delivery O2 Flow Rate FiO2 04/14/18 04:00 96.5 69 18 138/78 (98) 98 96.5 04/14/18 00:00 97.9 67 19 131/70 (90) 96 97.9 04/13/18 21:00 Room Air 04/13/18 20:00 98.2 76 19 137/76 (96) 98 98.2 04/13/18 16:00 98.2 66 21 120/69 (86) 97 98.2 04/13/18 12:00 98.2 65 18 126/73 (90) 98 98.2 04/13/18 09:00 Room Air 04/13/18 08:00 97.5 81 19 129/67 (87) 98 97.5 General Appearance: no apparent distress, alert EENT: PERRL/EOMI, normal ENT inspection Neck: non-tender, normal alignment Rhythm: NSR, PVCs Cardiovascular: normal peripheral pulses, normal rate, regular rhythm Respiratory/Chest: chest wall non-tender, lungs clear Abdomen: normal bowel sounds, non tender Extremities: normal range of motion 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 Intake and Output 04/13/18 04/14/18 19:00 07:00 Intake Total 1620 ml 790 ml Balance 1620 ml 790 ml Intake Oral 720 ml 240 ml IV Total 900 ml 550 ml # Voids 1 3 Laboratory Tests Test 04/14/18 06:35 White Blood Count 3.9 K/UL (4.8-10.8) L Red Blood Count 4.24 M/UL (4.20-5.40) Hemoglobin 11.6 G/DL (12.0-16.0) L Hematocrit 34.9 % (37.0-47.0) L Mean Corpuscular Volume 82 FL (80-99) Mean Corpuscular Hemoglobin 27.3 PG (27.0-31.0) Mean Corpuscular Hemoglobin Concent 33.2 G/DL (32.0-36.0) Red Cell Distribution Width 11.7 % (11.6-14.8) Platelet Count 240 K/UL (150-450) Mean Platelet Volume 6.5 FL (6.5-10.1) Neutrophils (%) (Auto) 56.6 % (45.0-75.0) Lymphocytes (%) (Auto) 22.4 % (20.0-45.0) Monocytes (%) (Auto) 15.3 % (1.0-10.0) H Eosinophils (%) (Auto) 4.1 % (0.0-3.0) H Basophils (%) (Auto) 1.6 % (0.0-2.0) Sodium Level 134 MMOL/L (136-145) L Potassium Level 4.4 MMOL/L (3.5-5.1) Chloride Level 103 MMOL/L (98-107) Carbon Dioxide Level 28 MMOL/L (21-32) Anion Gap 4 mmol/L (5-15) L Blood Urea Nitrogen 5 mg/dL (7-18) L Creatinine 0.8 MG/DL (0.55-1.30) Estimat Glomerular Filtration Rate mL/min (>60) Glucose Level 91 MG/DL (74-106) Calcium Level 8.7 MG/DL (8.5-10.1) Phosphorus Level 2.8 MG/DL (2.5-4.9) Magnesium Level 2.0 MG/DL (1.8-2.4) Total Bilirubin 0.6 MG/DL (0.2-1.0) Aspartate Amino Transf (AST/SGOT) 20 U/L (15-37) Alanine Aminotransferase (ALT/SGPT) 24 U/L (12-78) Alkaline Phosphatase 82 U/L (46-116) Total Protein 6.7 G/DL (6.4-8.2) Albumin 2.9 G/DL (3.4-5.0) L Globulin 3.8 g/dL Albumin/Globulin Ratio 0.8 (1.0-2.7) L Microbiology Date/Time Source Procedure Growth Status 04/13/18 04:00 Stool Clostridium difficile Toxin Assay - Final Complete 04/13/18 04:00 Stool Stool Culture - Preliminary NORMAL FECAL JEN. Resulted Matthew Henderson MD Apr 14, 2018 07:43
[2018-04-14 08:00] VITALS: BP 140/69
[2018-04-14] MEDS: Aspirin Baby 81mg ORAL SCH (08:10)
[2018-04-14] MEDS: Heparin 5000 units/ml inj SUBQ SCH ×2 (08:14→21:11)
[2018-04-14 12:00] VITALS: BP 143/73
--- NOTE | 2018-04-14 13:52 | Internal Med Progress Note ---
Subjective Date of Service: Apr 14, 2018 Physician Name Shane Yousif Attending Physician Manuel Richardson MD Current Medications Medications (Trade) Dose Ordered Sig/Margot Route PRN Reason Start Time Stop Time Status Last Admin Dose Admin Acetaminophen (Tylenol) 650 mg Q8HR PRN ORAL Prn Pain/Headache/Temp > 101 04/12/18 06:00 05/12/18 05:59 Aspirin (ASA) 81 mg DAILY ORAL 04/12/18 09:00 05/12/18 08:59 04/14/18 08:10 Dextrose (Dextrose 50%) 25 ml STAT PRN IV Hypoglycemia 04/12/18 06:00 05/12/18 05:59 Dextrose (Dextrose 50%) 50 ml STAT PRN IV Hypoglycemia 04/12/18 06:00 05/12/18 05:59 Dextrose/ Electrolytes 1,000 ml @ 50 mls/hr Q20H IV 04/13/18 14:00 05/13/18 13:59 04/14/18 10:11 Diphenhydramine HCl (Benadryl) 25 mg Q6H PRN ORAL Itching/Pruritis 04/12/18 06:00 05/12/18 05:59 Heparin Sodium (Porcine) (Heparin 5000 units/ml) 5,000 units EVERY 12 HOURS SUBQ 04/12/18 09:00 05/12/18 08:59 04/14/18 08:14 Morphine Sulfate (Morphine Sulfate) 2 mg Q6HR PRN IVP Severe Breakthru Pain (>7) 04/12/18 06:00 04/19/18 05:59 Ondansetron HCl (Zofran) 4 mg Q6H PRN IVP Nausea & Vomiting 04/12/18 06:00 05/12/18 05:59 Polyethylene Glycol (Miralax) 17 gm DAILYPRN PRN ORAL Constipation 04/13/18 19:30 05/13/18 19:29 Sennosides (Senokot) 1 tab DAILYPRN PRN ORAL Constipation 04/13/18 19:30 05/13/18 19:29 Allergies: Coded Allergies: No Known Allergies (Unverified , 01/03/17) ROS Limited/Unobtainable: No Constitutional: Reports: no symptoms HEENT: Reports: no symptoms Cardiovascular: Reports: no symptoms Respiratory: Reports: no symptoms Gastrointestinal/Abdominal: Reports: no symptoms Genitourinary: Reports: no symptoms Neurologic/Psychiatric: Reports: no symptoms Subjective 73 YO F admitted with altered mental status, now hyponatremia. Cover for Int Figueroa-Dr Richardson Objective Last Vital Signs Date Time Temp Pulse Resp B/P (MAP) Pulse Ox O2 Delivery O2 Flow Rate FiO2 04/14/18 12:00 99.1 69 17 143/73 (96) 98 99.1 04/14/18 09:00 Room Air Laboratory Tests Test 04/14/18 06:35 White Blood Count 3.9 K/UL (4.8-10.8) L Red Blood Count 4.24 M/UL (4.20-5.40) Hemoglobin 11.6 G/DL (12.0-16.0) L Hematocrit 34.9 % (37.0-47.0) L Mean Corpuscular Volume 82 FL (80-99) Mean Corpuscular Hemoglobin 27.3 PG (27.0-31.0) Mean Corpuscular Hemoglobin Concent 33.2 G/DL (32.0-36.0) Red Cell Distribution Width 11.7 % (11.6-14.8) Platelet Count 240 K/UL (150-450) Mean Platelet Volume 6.5 FL (6.5-10.1) Neutrophils (%) (Auto) 56.6 % (45.0-75.0) Lymphocytes (%) (Auto) 22.4 % (20.0-45.0) Monocytes (%) (Auto) 15.3 % (1.0-10.0) H Eosinophils (%) (Auto) 4.1 % (0.0-3.0) H Basophils (%) (Auto) 1.6 % (0.0-2.0) Sodium Level 134 MMOL/L (136-145) L Potassium Level 4.4 MMOL/L (3.5-5.1) Chloride Level 103 MMOL/L (98-107) Carbon Dioxide Level 28 MMOL/L (21-32) Anion Gap 4 mmol/L (5-15) L Blood Urea Nitrogen 5 mg/dL (7-18) L Creatinine 0.8 MG/DL (0.55-1.30) Estimat Glomerular Filtration Rate mL/min (>60) Glucose Level 91 MG/DL (74-106) Calcium Level 8.7 MG/DL (8.5-10.1) Phosphorus Level 2.8 MG/DL (2.5-4.9) Magnesium Level 2.0 MG/DL (1.8-2.4) Total Bilirubin 0.6 MG/DL (0.2-1.0) Aspartate Amino Transf (AST/SGOT) 20 U/L (15-37) Alanine Aminotransferase (ALT/SGPT) 24 U/L (12-78) Alkaline Phosphatase 82 U/L (46-116) Total Protein 6.7 G/DL (6.4-8.2) Albumin 2.9 G/DL (3.4-5.0) L Globulin 3.8 g/dL Albumin/Globulin Ratio 0.8 (1.0-2.7) L Microbiology Date/Time Source Procedure Growth Status 04/13/18 04:00 Stool Clostridium difficile Toxin Assay - Final Complete 04/13/18 04:00 Stool Stool Culture - Preliminary NORMAL FECAL JEN. Resulted Intake and Output 04/13/18 04/14/18 19:00 07:00 Intake Total 1620 ml 840 ml Balance 1620 ml 840 ml Intake Oral 720 ml 240 ml IV Total 900 ml 600 ml # Voids 1 3 Objective PHYSICAL EXAMINATION: VITAL SIGNS: Temperature 98.0, respirations 14, pulse 69, blood pressure 108/49. GENERAL: The patient is a well-developed, well-nourished female, in no apparent distress. HEENT: Eyes, pupils equal and responsive to light and accommodation. Extraocular movements are intact. NECK: Supple. No lymphadenopathy. CHEST: Clear to auscultation bilaterally without wheezes or rales. CARDIOVASCULAR: Regular rate. S1, S2 normal without murmurs, rubs, or gallops. ABDOMEN: Soft, nontender, and nondistended with positive bowel sounds. No evidence of hepatosplenomegaly. Currently, no rebound or guarding noted. Assessment/Plan Problem List: (1) Altered mental status (2) HTN (hypertension) (3) Hyponatremia Assessment & Plan: ?HCTZ? Resolving. Continue IV fluids. D/C HCTZ. Start lisinopril Shane Yousif MD Apr 14, 2018 13:52
--- NOTE | 2018-04-14 13:52 | Pulmonology Progress Note ---
Assessment/Plan Problems: (1) Hyponatremia (2) History of hypertension (3) Nausea, vomiting, and diarrhea Assessment/Plan no new complains Na better decrease IV fluids monitor BP, since pt has hx of hypertension symptomatic treatment dvt prophylaxis check labs in am dc planning soon if continues to improve. Subjective ROS Limited/Unobtainable: No Constitutional: Reports: no symptoms HEENT: Repors: no symptoms Respiratory: Reports: no symptoms Allergies: Coded Allergies: No Known Allergies (Unverified , 01/03/17) Objective Last 24 Hour Vital Signs Date Time Temp Pulse Resp B/P (MAP) Pulse Ox O2 Delivery O2 Flow Rate FiO2 04/14/18 12:00 99.1 69 17 143/73 (96) 98 99.1 04/14/18 09:00 Room Air 04/14/18 08:00 98.1 76 18 140/69 (92) 97 98.1 04/14/18 04:00 96.5 69 18 138/78 (98) 98 96.5 04/14/18 00:00 97.9 67 19 131/70 (90) 96 97.9 04/13/18 21:00 Room Air 04/13/18 20:00 98.2 76 19 137/76 (96) 98 98.2 04/13/18 16:00 98.2 66 21 120/69 (86) 97 98.2 Intake and Output 04/13/18 04/14/18 19:00 07:00 Intake Total 1620 ml 840 ml Balance 1620 ml 840 ml Intake Oral 720 ml 240 ml IV Total 900 ml 600 ml # Voids 1 3 General Appearance: WD/WN HEENT: normocephalic, anicteric Respiratory/Chest: chest wall non-tender, lungs clear Breasts: no masses Cardiovascular: normal rate Abdomen: soft, non tender, non distended Genitourinary: normal external genitalia Skin: no rash, no lesions Microbiology Date/Time Source Procedure Growth Status 04/13/18 04:00 Stool Clostridium difficile Toxin Assay - Final Complete 04/13/18 04:00 Stool Stool Culture - Preliminary NORMAL FECAL JEN. Resulted Laboratory Tests 04/14/18 06:35: White Blood Count 3.9L, Red Blood Count 4.24, Hemoglobin 11.6L, Hematocrit 34.9L , Mean Corpuscular Volume 82, Mean Corpuscular Hemoglobin 27.3, Mean Corpuscular Hemoglobin Concent 33.2, Red Cell Distribution Width 11.7, Platelet Count 240, Mean Platelet Volume 6.5, Neutrophils (%) (Auto) 56.6, Lymphocytes (% ) (Auto) 22.4, Monocytes (%) (Auto) 15.3H, Eosinophils (%) (Auto) 4.1H, Basophils (%) (Auto) 1.6, Sodium Level 134L, Potassium Level 4.4, Chloride Level 103, Carbon Dioxide Level 28, Anion Gap 4L, Blood Urea Nitrogen 5L, Creatinine 0.8, Estimat Glomerular Filtration Rate , Glucose Level 91, Calcium Level 8.7, Phosphorus Level 2.8, Magnesium Level 2.0, Total Bilirubin 0.6, Aspartate Amino Transf (AST/SGOT) 20, Alanine Aminotransferase (ALT/SGPT) 24, Alkaline Phosphatase 82, Total Protein 6.7, Albumin 2.9L, Globulin 3.8, Albumin/ Globulin Ratio 0.8L Current Medications Medications (Trade) Dose Ordered Sig/Margot Route PRN Reason Start Time Stop Time Status Last Admin Dose Admin Acetaminophen (Tylenol) 650 mg Q8HR PRN ORAL Prn Pain/Headache/Temp > 101 04/12/18 06:00 05/12/18 05:59 Aspirin (ASA) 81 mg DAILY ORAL 04/12/18 09:00 05/12/18 08:59 04/14/18 08:10 Dextrose (Dextrose 50%) 25 ml STAT PRN IV Hypoglycemia 04/12/18 06:00 05/12/18 05:59 Dextrose (Dextrose 50%) 50 ml STAT PRN IV Hypoglycemia 04/12/18 06:00 05/12/18 05:59 Dextrose/ Electrolytes 1,000 ml @ 50 mls/hr Q20H IV 04/13/18 14:00 05/13/18 13:59 04/14/18 10:11 Diphenhydramine HCl (Benadryl) 25 mg Q6H PRN ORAL Itching/Pruritis 04/12/18 06:00 05/12/18 05:59 Heparin Sodium (Porcine) (Heparin 5000 units/ml) 5,000 units EVERY 12 HOURS SUBQ 04/12/18 09:00 05/12/18 08:59 04/14/18 08:14 Lisinopril (Zestril) 10 mg DAILY ORAL 04/15/18 09:00 05/15/18 08:59 UNV Morphine Sulfate (Morphine Sulfate) 2 mg Q6HR PRN IVP Severe Breakthru Pain (>7) 04/12/18 06:00 04/19/18 05:59 Ondansetron HCl (Zofran) 4 mg Q6H PRN IVP Nausea & Vomiting 04/12/18 06:00 05/12/18 05:59 Polyethylene Glycol (Miralax) 17 gm DAILYPRN PRN ORAL Constipation 04/13/18 19:30 05/13/18 19:29 Sennosides (Senokot) 1 tab DAILYPRN PRN ORAL Constipation 04/13/18 19:30 05/13/18 19:29 Sharyn Allred MD Apr 14, 2018 13:52
[2018-04-14 16:16] VITALS: BP 117/57
[2018-04-14 20:00] VITALS: BP 143/73
[2018-04-15] VITALS: BP 141/76
[2018-04-15 04:00] VITALS: BP 152/80
[2018-04-15 07:47] LABS: BASOPHILS % (AUTO) 1.2 % (0.0-2.0); EOSINOPHILS % (AUTO) 4.6 % (0.0-3.0); HEMATOCRIT 36.2 % (37.0-47.0); HEMOGLOBIN 12.2 G/DL (12.0-16.0); LYMPHOCYTES % (AUTO) 29.3 % (20.0-45.0); MEAN CORPUSCULAR VOLUME 82 FL (80-99); MONOCYTES % (AUTO) 12.5 % (1.0-10.0); NEUTROPHILS % (AUTO) 52.5 % (45.0-75.0); PLATELET COUNT 267 K/UL (150-450); RED BLOOD COUNT 4.41 M/UL (4.20-5.40); RED CELL DISTRIBUTION WIDTH 11.5 % (11.6-14.8); WHITE BLOOD COUNT 4.3 K/UL (4.8-10.8)
[2018-04-15 08:00] VITALS: BP 141/71
[2018-04-15 08:44] LABS: ALANINE AMINOTRANSFERASE 28 U/L (12-78); ALBUMIN 3.1 G/DL (3.4-5.0); ALBUMIN/GLOBULIN RATIO 0.8 (1.0-2.7); ALKALINE PHOSPHATASE 88 U/L (46-116); ANION GAP 9 mmol/L (5-15); ASPARTATE AMINO TRANSFERASE 21 U/L (15-37); BILIRUBIN,TOTAL 0.5 MG/DL (0.2-1.0); BLOOD UREA NITROGEN 5 mg/dL (7-18); CARBON DIOXIDE 27 MMOL/L (21-32); CHLORIDE 102 MMOL/L (98-107); CREATININE 0.8 MG/DL (0.55-1.30); PHOSPHORUS 3.8 MG/DL (2.5-4.9); POTASSIUM 4.6 MMOL/L (3.5-5.1); SODIUM 138 MMOL/L (136-145)
[2018-04-15] MEDS ORDERED: Lisinopril 10mg tab ORAL SCH (09:00)
[2018-04-15] MEDS: Aspirin Baby 81mg ORAL SCH (09:17)
[2018-04-15] MEDS: Heparin 5000 units/ml inj SUBQ SCH (09:19)
--- NOTE | 2018-04-15 10:31 | Cardiology Progress Note ---
Assessment/Plan Status: stable Assessment/Plan Assessment: 1. Hyponatremia. 2. Urinary tract infection. 3. Hypertension. 4. PVC Plan: D/c HCTZ as it can cause hyponatremia NA normalized Monitor BP - continue lisinopril D/c iV fluids Continue abx for UTI Monitor PVCs Outpatient echocardiogram/stress test Aspirin Dispo planning Subjective Cardiovascular: Reports: no symptoms Respiratory: Reports: no symptoms Gastrointestinal/Abdominal: Reports: no symptoms Genitourinary: Reports: no symptoms Subjective No acute events, no pain, vitals stable, NA normal, lisinopril started, BP controlled, PO intake improved Objective Last 24 Hour Vital Signs Date Time Temp Pulse Resp B/P (MAP) Pulse Ox O2 Delivery O2 Flow Rate FiO2 04/15/18 09:17 141/71 04/15/18 08:00 98.8 69 19 141/71 (94) 99 98.8 04/15/18 04:00 97.9 74 18 152/80 (104) 98 97.9 04/15/18 00:00 98.8 92 18 141/76 (97) 97 98.8 04/14/18 21:00 Room Air 04/14/18 20:00 98.9 68 18 143/73 (96) 99 98.9 04/14/18 16:16 97.7 73 18 117/57 (77) 94 97.7 04/14/18 12:00 99.1 69 17 143/73 (96) 98 99.1 General Appearance: no apparent distress, alert EENT: PERRL/EOMI, normal ENT inspection Neck: non-tender, normal alignment Rhythm: NSR Cardiovascular: normal peripheral pulses, normal rate, regular rhythm Respiratory/Chest: chest wall non-tender, lungs clear Abdomen: normal bowel sounds, non tender Extremities: normal range of motion, non-tender Neurologic: town clerk II-XII grossly normal, no motor/sensory deficits Intake and Output 04/14/18 04/15/18 19:00 07:00 Intake Total 1360 ml 850 ml Balance 1360 ml 850 ml Intake Oral 360 ml 250 ml IV Total 550 ml 600 ml Other 450 ml # Voids 8 4 # Bowel Movements 2 1 Laboratory Tests Test 04/15/18 06:35 White Blood Count 4.3 K/UL (4.8-10.8) L Red Blood Count 4.41 M/UL (4.20-5.40) Hemoglobin 12.2 G/DL (12.0-16.0) Hematocrit 36.2 % (37.0-47.0) L Mean Corpuscular Volume 82 FL (80-99) Mean Corpuscular Hemoglobin 27.7 PG (27.0-31.0) Mean Corpuscular Hemoglobin Concent 33.8 G/DL (32.0-36.0) Red Cell Distribution Width 11.5 % (11.6-14.8) L Platelet Count 267 K/UL (150-450) Mean Platelet Volume 6.5 FL (6.5-10.1) Neutrophils (%) (Auto) 52.5 % (45.0-75.0) Lymphocytes (%) (Auto) 29.3 % (20.0-45.0) Monocytes (%) (Auto) 12.5 % (1.0-10.0) H Eosinophils (%) (Auto) 4.6 % (0.0-3.0) H Basophils (%) (Auto) 1.2 % (0.0-2.0) Sodium Level 138 MMOL/L (136-145) Potassium Level 4.6 MMOL/L (3.5-5.1) Chloride Level 102 MMOL/L (98-107) Carbon Dioxide Level 27 MMOL/L (21-32) Anion Gap 9 mmol/L (5-15) Blood Urea Nitrogen 5 mg/dL (7-18) L Creatinine 0.8 MG/DL (0.55-1.30) Estimat Glomerular Filtration Rate mL/min (>60) Glucose Level 89 MG/DL (74-106) Calcium Level 9.0 MG/DL (8.5-10.1) Phosphorus Level 3.8 MG/DL (2.5-4.9) Magnesium Level 2.0 MG/DL (1.8-2.4) Total Bilirubin 0.5 MG/DL (0.2-1.0) Aspartate Amino Transf (AST/SGOT) 21 U/L (15-37) Alanine Aminotransferase (ALT/SGPT) 28 U/L (12-78) Alkaline Phosphatase 88 U/L (46-116) Total Protein 7.2 G/DL (6.4-8.2) Albumin 3.1 G/DL (3.4-5.0) L Globulin 4.1 g/dL Albumin/Globulin Ratio 0.8 (1.0-2.7) L Microbiology Date/Time Source Procedure Growth Status 04/13/18 04:00 Stool Clostridium difficile Toxin Assay - Final Complete 04/13/18 04:00 Stool Stool Culture - Preliminary NO SALMONELLA,SHIGELLA,OR CAMPYLOBACT... Resulted Matthew Henderson MD Apr 15, 2018 10:31
[2018-04-15 12:00] VITALS: BP 131/78
[2018-04-15] MEDS ORDERED: LISINOPRIL10 MG ORAL (14:35)
--- NOTE | 2018-04-15 14:39 | Pulmonology Progress Note ---
Assessment/Plan Problems: (1) Hyponatremia (2) History of hypertension (3) Nausea, vomiting, and diarrhea Assessment/Plan no new complains Na better decrease IV fluids monitor BP, since pt has hx of hypertension symptomatic treatment dvt prophylaxis check labs in am dc home today Subjective ROS Limited/Unobtainable: No Constitutional: Reports: no symptoms HEENT: Repors: no symptoms Respiratory: Reports: no symptoms Allergies: Coded Allergies: No Known Allergies (Unverified , 01/03/17) Objective Last 24 Hour Vital Signs Date Time Temp Pulse Resp B/P (MAP) Pulse Ox O2 Delivery O2 Flow Rate FiO2 04/15/18 09:17 141/71 04/15/18 08:00 98.8 69 19 141/71 (94) 99 98.8 04/15/18 04:00 97.9 74 18 152/80 (104) 98 97.9 04/15/18 00:00 98.8 92 18 141/76 (97) 97 98.8 04/14/18 21:00 Room Air 04/14/18 20:00 98.9 68 18 143/73 (96) 99 98.9 04/14/18 16:16 97.7 73 18 117/57 (77) 94 97.7 Intake and Output 04/14/18 04/15/18 19:00 07:00 Intake Total 1360 ml 850 ml Balance 1360 ml 850 ml Intake Oral 360 ml 250 ml IV Total 550 ml 600 ml Other 450 ml # Voids 8 4 # Bowel Movements 2 1 General Appearance: WD/WN HEENT: normocephalic, atraumatic Respiratory/Chest: chest wall non-tender, normal breath sounds Breasts: no masses Cardiovascular: normal rate, regular rhythm Abdomen: normal bowel sounds, no organomegaly Extremities: no cyanosis, no clubbing Skin: no lesions Microbiology Date/Time Source Procedure Growth Status 04/13/18 04:00 Stool Clostridium difficile Toxin Assay - Final Complete 04/13/18 04:00 Stool Stool Culture - Preliminary NO SALMONELLA,SHIGELLA,OR CAMPYLOBACT... Resulted Laboratory Tests 04/15/18 06:35: White Blood Count 4.3L, Red Blood Count 4.41, Hemoglobin 12.2, Hematocrit 36.2L , Mean Corpuscular Volume 82, Mean Corpuscular Hemoglobin 27.7, Mean Corpuscular Hemoglobin Concent 33.8, Red Cell Distribution Width 11.5L, Platelet Count 267, Mean Platelet Volume 6.5, Neutrophils (%) (Auto) 52.5, Lymphocytes (%) (Auto) 29.3, Monocytes (%) (Auto) 12.5H, Eosinophils (%) (Auto) 4.6H, Basophils (%) (Auto) 1.2, Sodium Level 138, Potassium Level 4.6, Chloride Level 102, Carbon Dioxide Level 27, Anion Gap 9, Blood Urea Nitrogen 5L, Creatinine 0.8, Estimat Glomerular Filtration Rate , Glucose Level 89, Calcium Level 9.0, Phosphorus Level 3.8, Magnesium Level 2.0, Total Bilirubin 0.5, Aspartate Amino Transf (AST/SGOT) 21, Alanine Aminotransferase (ALT/SGPT) 28, Alkaline Phosphatase 88, Total Protein 7.2, Albumin 3.1L, Globulin 4.1, Albumin/ Globulin Ratio 0.8L Current Medications Medications (Trade) Dose Ordered Sig/Margot Route PRN Reason Start Time Stop Time Status Last Admin Dose Admin Acetaminophen (Tylenol) 650 mg Q8HR PRN ORAL Prn Pain/Headache/Temp > 101 04/12/18 06:00 05/12/18 05:59 Aspirin (ASA) 81 mg DAILY ORAL 04/12/18 09:00 05/12/18 08:59 04/15/18 09:17 Dextrose (Dextrose 50%) 25 ml STAT PRN IV Hypoglycemia 04/12/18 06:00 05/12/18 05:59 Dextrose (Dextrose 50%) 50 ml STAT PRN IV Hypoglycemia 04/12/18 06:00 05/12/18 05:59 Dextrose/ Electrolytes 1,000 ml @ 50 mls/hr Q20H IV 04/13/18 14:00 05/13/18 13:59 04/14/18 16:44 Diphenhydramine HCl (Benadryl) 25 mg Q6H PRN ORAL Itching/Pruritis 04/12/18 06:00 05/12/18 05:59 Heparin Sodium (Porcine) (Heparin 5000 units/ml) 5,000 units EVERY 12 HOURS SUBQ 04/12/18 09:00 05/12/18 08:59 04/15/18 09:19 Lisinopril (Zestril) 10 mg DAILY ORAL 04/15/18 09:00 05/15/18 08:59 04/15/18 09:17 Morphine Sulfate (Morphine Sulfate) 2 mg Q6HR PRN IVP Severe Breakthru Pain (>7) 04/12/18 06:00 04/19/18 05:59 04/15/18 02:08 Ondansetron HCl (Zofran) 4 mg Q6H PRN IVP Nausea & Vomiting 04/12/18 06:00 05/12/18 05:59 Polyethylene Glycol (Miralax) 17 gm DAILYPRN PRN ORAL Constipation 04/13/18 19:30 05/13/18 19:29 Sennosides (Senokot) 1 tab DAILYPRN PRN ORAL Constipation 04/13/18 19:30 05/13/18 19:29 Sharyn Allred MD Apr 15, 2018 14:39
--- NOTE | 2018-04-15 15:12 | General Progress Note ---
Assessment/Plan Status: stable, progressing Assessment/Plan encephalopathy due to [facility] Anxiety Seroquel prn Provided ro/st Subjective Date patient seen: Apr 15, 2018 Neurologic/Psychiatric: Reports: anxiety, depressed, emotional problems Allergies: Coded Allergies: No Known Allergies (Unverified , 01/03/17) Objective Last 24 Hour Vital Signs Date Time Temp Pulse Resp B/P (MAP) Pulse Ox O2 Delivery O2 Flow Rate FiO2 04/15/18 09:17 141/71 04/15/18 08:00 98.8 69 19 141/71 (94) 99 98.8 04/15/18 04:00 97.9 74 18 152/80 (104) 98 97.9 04/15/18 00:00 98.8 92 18 141/76 (97) 97 98.8 04/14/18 21:00 Room Air 04/14/18 20:00 98.9 68 18 143/73 (96) 99 98.9 04/14/18 16:16 97.7 73 18 117/57 (77) 94 97.7 Intake and Output 04/14/18 04/15/18 19:00 07:00 Intake Total 1360 ml 850 ml Balance 1360 ml 850 ml Intake Oral 360 ml 250 ml IV Total 550 ml 600 ml Other 450 ml # Voids 8 4 # Bowel Movements 2 1 Laboratory Tests 04/15/18 06:35: White Blood Count 4.3L, Red Blood Count 4.41, Hemoglobin 12.2, Hematocrit 36.2L , Mean Corpuscular Volume 82, Mean Corpuscular Hemoglobin 27.7, Mean Corpuscular Hemoglobin Concent 33.8, Red Cell Distribution Width 11.5L, Platelet Count 267, Mean Platelet Volume 6.5, Neutrophils (%) (Auto) 52.5, Lymphocytes (%) (Auto) 29.3, Monocytes (%) (Auto) 12.5H, Eosinophils (%) (Auto) 4.6H, Basophils (%) (Auto) 1.2, Sodium Level 138, Potassium Level 4.6, Chloride Level 102, Carbon Dioxide Level 27, Anion Gap 9, Blood Urea Nitrogen 5L, Creatinine 0.8, Estimat Glomerular Filtration Rate , Glucose Level 89, Calcium Level 9.0, Phosphorus Level 3.8, Magnesium Level 2.0, Total Bilirubin 0.5, Aspartate Amino Transf (AST/SGOT) 21, Alanine Aminotransferase (ALT/SGPT) 28, Alkaline Phosphatase 88, Total Protein 7.2, Albumin 3.1L, Globulin 4.1, Albumin/ Globulin Ratio 0.8L Height (Feet): 4 Height (Inches): 9.00 Weight (Pounds): 147 General Appearance: no apparent distress, alert Neurologic: oriented x 3, responsive, depressed affect Marcellus Li MD Apr 15, 2018 15:12
[2018-04-15] MEDS ORDERED: Pneumococcal Vaccine 25mcg/0.5ml IM ONE (15:30)
[2018-04-15 16:00] VITALS: BP 139/75
--- NOTE | 2018-04-19 07:26 | Discharge Summary ---
Discharge Summary Discharge Summary _ DATE OF ADMISSION: 04/12/2018 DATE OF DISCHARGE: 04/15/2018 REASON FOR ADMISSION: 73 years old female with past medical history of hypertension ,presented to emergency department with generalized body pain, nausea ,vomiting and diarrhea. Patient had dysuria and frequency for 2 weeks . o She was diagnosed with urinary tract infection and was prescribed Keflex . She had been on it for 3 days. Upon evaluation vital signs revealed elevated blood pressure 161/80, no fever . Sodium 118. Urinalysis revealed no evidence of UTI . No leukocytosis, stable hemoglobin and hematocrit, EKG showed normal sinus rhythm, no acute ischemic changes. Chest x-ray revealed no acute cardiopulmonary pathology. Patient admitted with diagnoses of hyponatremia, urinary tract infection, hypertension, nausea vomiting and diarrhea. CONSULTANTS: power supply engineer dr. Henderson pulmonary Dr. Allred psychiatrist [facility]SE: Patient admitted. Patient started on IV hydration with normal saline. Hydrochlorothiazide was held. Hyponatremia workup was completed. Stool culture was negative. Stool for C. difficile was negative. Supportive care provided . Diarrhea resolved. Sodium up to 138. IV fluids discontinued . Hyponatremia was likely brought on by hydrochlorothiazide . Blood pressure was managed with OMI inhibitor. Antiplatelet therapy with aspirin was continued. DVT prophylaxis provided . Pain management was addressed, and pain was controlled. Aspiration precautions maintained . Adaptive Physical Education Specialist closely followed. Telemetry showed some PVC. Adaptive Physical Education Specialist recommended outpatient echocardiogram and stress test. Psychiatrist closely followed patient and diagnosed patient with encephalopathy due to general medical condition and anxiety. Reality orientation and supportive therapy provided. Seroquel started on as needed basis. Supportive care provided. Antiemetics provided as needed. Patient was able to tolerate diet , sodium normalized ,blood pressure stabilized. No nausea, no diarrhea. Patient was ready for discharge home. FINAL DIAGNOSES: Acute hyponatremia secondary to hydrochlorothiazide -resolved Nausea, vomiting and diarrhea, probably due to acute hyponatremia -resolved Hypertension Encephalopathy secondary to general medical condition Recent UTI PVC DISCHARGE MEDICATIONS: See Medication Reconciliation list. DISCHARGE INSTRUCTIONS: Patient was discharged home. Follow up with primary care provider in one week. I have been assigned to dictate discharge summary for this account. I was not involved in the patient's management. Shira Jacobo NP Apr 19, 2018 07:26
== END 2018-04-15 16:50 | disposition home or self-care (01) | DRG 426 ==
LOC: EMR 03:17 → 4E 05:11 → EDBEDREQ 05:48
DX: E87.1 Hypo-osmolality and hyponatremia (principal); G93.40 Encephalopathy, unspecified; T50.2X5A Adverse effect of carbonic-anhydrase inhibitors, benzothiadiazides and other diuretics, initial encounter; N39.0 Urinary tract infection, site not specified; I10 Essential (primary) hypertension; R19.7 Diarrhea, unspecified; I49.3 Ventricular premature depolarization; R11.2 Nausea with vomiting, unspecified; F41.9 Anxiety disorder, unspecified; Z23 Encounter for immunization
CPT/HCPCS: 36415; 71045; 80053; 81001; 82248; 82533; 82962; 83735; 83930; 83935; 84100; 84300; 84439; 84443; 84481; 84550; 85025; 85610; 85730; 87045; 87324; 90732; 96365; 96366; 96375; 99285; J2405

== ENCOUNTER 2018-04-18 02:47 | Emergency (ER) | payer MEDICAID ==
[~2018-04-18] VITALS: Ht 149.9 cm; Wt 67.1 kg
[~2018-04-18 02:47] MED LIST changes: +CEPHALEXIN500 MG ORAL; +HYDROCHLOROTH12.5 M2 ORAL; +LISINOPRIL10 MG ORAL; +OMEPRAZOLE20 M2 ORAL
[2018-04-18 03:00] VITALS: BP 140/60
[2018-04-18 03:15] LABS: APPEARANCE,URINE CLEAR; BILIRUBIN, URINE NEGATIVE (NEGATIVE); COLOR,URINE PALE YELLOW; GLUCOSE, URINE (UA) NEGATIVE (NEGATIVE); KETONES,URINE NEGATIVE (NEGATIVE); LEUKOCYTE ESTERASE ,URINE 1+ (NEGATIVE); NITRITE,URINE NEGATIVE (NEGATIVE); PH,URINE 7 (4.5-8.0); PROTEIN,URINE NEGATIVE (NEGATIVE); UROBILINOGEN,URINE NORMAL MG/DL (0.0-1.0)
[2018-04-18] MEDS ORDERED: Lidocaine 2% Visc 15ml soln ORAL ONE (03:15)
[2018-04-18] MEDS ORDERED: Mylanta II UD 30ml ORAL ONE (03:15)
[2018-04-18] MEDS ORDERED: Dicyclomine HCl 10mg/5ml oral soln ORAL ONE (03:15)
[2018-04-18 03:43] LABS: EOSINOPHILS % (AUTO) 3.2 % (0.0-3.0); HEMOGLOBIN 12.2 G/DL (12.0-16.0); LYMPHOCYTES % (AUTO) 29.6 % (20.0-45.0); MEAN CORPUSCULAR VOLUME 80 FL (80-99); MONOCYTES % (AUTO) 10.8 % (1.0-10.0); NEUTROPHILS % (AUTO) 54.4 % (45.0-75.0); PLATELET COUNT 266 K/UL (150-450); RED CELL DISTRIBUTION WIDTH 11.4 % (11.6-14.8); WHITE BLOOD COUNT 4.5 K/UL (4.8-10.8)
--- NOTE | 2018-04-18 03:47 | Emergency Room Report ---
History of Present Illness General Chief Complaint: Female Urogenital Problems Source: Patient Present Illness HPI Patient is a 73-year-old female presented after increased dysuria as well as abdominal fullness. Patient reports having recent hospitalization for similar symptoms. The patient was noted to have recent episode of hyponatremia which was associated with vomiting and diarrhea. The patient reports having increased difficulty with voiding. She denies recent black or bloody stools.She had not been vomiting at this time. Allergies: Coded Allergies: No Known Allergies (Unverified , 01/03/17) Patient History Past Medical History: see triage record Last Menstrual Period: n/a Reviewed Nursing Documentation: PMH: Agreed; PSxH: Agreed Nursing Documentation-PMH Hx Cardiac Problems: Yes Hx Hypertension: Yes Hx Cancer: No Hx Gastrointestinal Problems: Yes - Gastritis Hx Neurological Problems: No Review of Systems All Other Systems: negative except mentioned in HPI Physical Exam Vital Signs Date Time Temp Pulse Resp B/P (MAP) Pulse Ox O2 Delivery O2 Flow Rate FiO2 04/18/18 02:52 98.1 78 16 132/66 96 Room Air 98.1 Sp02 EP Interpretation: reviewed, normal General Appearance: normal inspection, well appearing, no apparent distress, alert, GCS 15 Head: atraumatic ENT: normal ENT inspection, hearing grossly normal, normal voice Neck: normal inspection, full range of motion, supple, no bony tend Respiratory: normal inspection, lungs clear, normal breath sounds, no respiratory distress, no retraction, no wheezing Cardiovascular #1: regular rate, rhythm, no edema Gastrointestinal: normal inspection, normal bowel sounds, non tender, soft, no guarding, no hernia Genitourinary: no CVA tenderness, other - slight prolapse of bladder wall into vagina Musculoskeletal: normal inspection, back normal, normal range of motion Neurologic: normal inspection, alert, responsive, speech normal Psychiatric: normal inspection, judgement/insight normal, mood/affect normal Skin: normal inspection, normal color, no rash Medical Decision Making Diagnostic Impression: Primary Impression: Polydipsia Additional Impression: Hyponatremia ER Course Patient presented for dysuria. Differential diagnosis included was not limited to appendicitis, urinary tract infection, pelvic inflammatory disease, urethritis, herpes among others.Because of complexity of patient's case laboratory testing and imaging studies were ordered.Laboratory studies was notable for low sodium. Patient was noted to have dilute urine. Patient was advised fluid restriction. She is advised to have laboratories recheck with her primary care physician in one to 2 days. The patient was to return if she began having worsening pain persistent vomiting or other concerns. Labs Test 04/18/18 03:23 04/18/18 03:35 Urine Color Pale yellow Urine Appearance Clear Urine pH 7 (4.5-8.0) Urine Specific [place] 1.005 (1.005-1.035) Urine Protein Negative (NEGATIVE) Urine Glucose (UA) Negative (NEGATIVE) Urine Ketones Negative (NEGATIVE) Urine Blood Negative (NEGATIVE) Urine Nitrite Negative (NEGATIVE) Urine Bilirubin Negative (NEGATIVE) Urine Urobilinogen Normal MG/DL (0.0-1.0) Urine Leukocyte Esterase 1+ (NEGATIVE) Urine RBC 0 /HPF (0 - 2) Urine WBC 0-2 /HPF (0 - 2) Urine Squamous Epithelial Cells Few /LPF (NONE/OCC) Urine Bacteria None /HPF (NONE) White Blood Count 4.5 K/UL (4.8-10.8) Red Blood Count 4.50 M/UL (4.20-5.40) Hemoglobin 12.2 G/DL (12.0-16.0) Hematocrit 36.0 % (37.0-47.0) Mean Corpuscular Volume 80 FL (80-99) Mean Corpuscular Hemoglobin 27.2 PG (27.0-31.0) Mean Corpuscular Hemoglobin Concent 34.0 G/DL (32.0-36.0) Red Cell Distribution Width 11.4 % (11.6-14.8) Platelet Count 266 K/UL (150-450) Mean Platelet Volume 6.6 FL (6.5-10.1) Neutrophils (%) (Auto) 54.4 % (45.0-75.0) Lymphocytes (%) (Auto) 29.6 % (20.0-45.0) Monocytes (%) (Auto) 10.8 % (1.0-10.0) Eosinophils (%) (Auto) 3.2 % (0.0-3.0) Basophils (%) (Auto) 2.0 % (0.0-2.0) Sodium Level 122 MMOL/L (136-145) Potassium Level 4.0 MMOL/L (3.5-5.1) Chloride Level 90 MMOL/L (98-107) Carbon Dioxide Level 24 MMOL/L (21-32) Anion Gap 8 mmol/L (5-15) Blood Urea Nitrogen 6 mg/dL (7-18) Creatinine 0.7 MG/DL (0.55-1.30) Estimat Glomerular Filtration Rate mL/min (>60) Glucose Level 100 MG/DL (74-106) Calcium Level 9.3 MG/DL (8.5-10.1) Total Bilirubin 1.1 MG/DL (0.2-1.0) Direct Bilirubin 0.2 MG/DL (0.0-0.3) Aspartate Amino Transf (AST/SGOT) 62 U/L (15-37) Alanine Aminotransferase (ALT/SGPT) 49 U/L (12-78) Alkaline Phosphatase 93 U/L (46-116) Total Protein 7.5 G/DL (6.4-8.2) Albumin 3.5 G/DL (3.4-5.0) Globulin 4.0 g/dL Albumin/Globulin Ratio 0.9 (1.0-2.7) Lipase 113 U/L (73-393) Last Vital Signs Date Time Temp Pulse Resp B/P (MAP) Pulse Ox O2 Delivery O2 Flow Rate FiO2 04/18/18 03:00 98.1 79 19 140/60 98 Room Air 98.1 Status: improved Disposition: HOME, SELF-CARE Condition: Stable Referrals: NON PHYSICIAN (PCP) Hosea Mendoza MD Apr 18, 2018 03:47
[2018-04-18 03:55] LABS: ANION GAP 8 mmol/L (5-15); BLOOD UREA NITROGEN 6 mg/dL (7-18); CALCIUM 9.3 MG/DL (8.5-10.1); CARBON DIOXIDE 24 MMOL/L (21-32); CHLORIDE 90 MMOL/L (98-107); CREATININE 0.7 MG/DL (0.55-1.30); SODIUM 122 MMOL/L (136-145)
[2018-04-18 04:00] VITALS: BP 135/74
[2018-04-18] MEDS ORDERED: Isovue-300 100ml vial INJ PRN (04:00)
[2018-04-18 04:05] LABS: ALANINE AMINOTRANSFERASE 49 U/L (12-78); ALBUMIN 3.5 G/DL (3.4-5.0); ALBUMIN/GLOBULIN RATIO 0.9 (1.0-2.7); ALKALINE PHOSPHATASE 93 U/L (46-116); ASPARTATE AMINO TRANSFERASE 62 U/L (15-37); BILIRUBIN,TOTAL 1.1 MG/DL (0.2-1.0)
[2018-04-18 04:06] LABS: BILIRUBIN,DIRECT 0.2 MG/DL (0.0-0.3)
[2018-04-18 05:00] VITALS: BP 135/74
--- NOTE | 2018-04-18 10:47 | Diagnostic Imaging Report ---
Clinical Indication: Abdominal pain Technique: No oral contrast utilized, per emergency room physician request IV administration nonionic contrast. Venous phase spiral acquisition obtained through the abdomen and pelvis. Multiplanar reconstructions were generated. Total dose length product 854.25 mGycm. CTDIvol(s) 18.84 mGy. Dose reduction achieved using automated exposure control Comparison: none Findings: There is colonic diverticulosis. No evidence of diverticulitis. There is equivocal minimal wall thickening of the distal rectum on the left. The appendix is normal. No small bowel distention. No free or loculated intraperitoneal gas or fluid is evident. There is a small sliding-type hiatal hernia. The stomach and duodenum are otherwise unremarkable The gallbladder contains a gallstone. There is a 1 cm diameter somewhat irregularly-shaped low-attenuation lesion in the dome of the liver within segment 7, which demonstrates fluid attenuation and is therefore consistent with benign simple cyst. No biliary ductal dilatation. The pancreas, spleen, adrenals are unremarkable. The kidneys demonstrate subcentimeter low-attenuation lesions which are too small to characterize. There are are prominent extrarenal pelvises bilaterally but no garland hydronephrosis, renal or ureteral calculi or hydroureter. The bladder is distended. No pelvic mass or adenopathy. No retroperitoneal or mesenteric mass or adenopathy. A calcified granuloma is seen at the right lung base. Linear scarring or atelectasis is seen at the left lung base. The bones demonstrate degenerative spondylosis changes. There is anterior offset of L5 on S1 without evidence of pars defect Impression: No definite acute process Equivocal minimal distal rectal wall thickening, should be amenable to visual inspection. Correlation with clinical findings is recommended Cholelithiasis. No secondary signs of acute cholecystitis Diverticulosis. No evidence of diverticulitis Other findings as noted, including right basilar pulmonary calcite granulomata, left basilar scarring and/or atelectasis, small sliding-type hiatal hernia, degenerative spondylosis as described, right lobe liver cyst. Bilateral subcentimeter renal low-attenuation lesions are too small to characterize, most likely benign simple cysts, no further follow-up is necessary This agrees with the preliminary interpretation provided overnight by [employer] teleradiology service, with minor variation. The CT scanner at [facility] is accredited by the [employer] and the scans are performed using protocols designed to limit radiation exposure to as low as reasonably achievable to attain images of sufficient resolution adequate for diagnostic evaluation.
== END 2018-04-18 05:00 | disposition home or self-care (01) ==
LOC: EMR 03:11
DX: R63.1 Polydipsia (principal); E87.1 Hypo-osmolality and hyponatremia; I10 Essential (primary) hypertension
CPT/HCPCS: 36415; 74177; 80053; 81003; 82248; 83690; 85025; 96374; 99284; J2405; Q9967

== ENCOUNTER 2019-01-30 13:14 | Emergency (ER) | payer MEDICARE, MEDICAID ==
[~2019-01-30] VITALS: Ht 152.4 cm; Wt 64.0 kg
[2019-01-30] MEDS ORDERED: OYSTER SHELL C1 EA13 PO (13:26)
[2019-01-30 13:34] VITALS: BP 114/63
[2019-01-30] MEDS ORDERED: valACYclovir HCL 500mg tab ORAL ONE (13:45)
--- NOTE | 2019-01-30 13:49 | NUR ---
ED Nurse Note: pt walked in with son from home c/o rash on the left sided abdomen x 3 days; reports no N/V/D or fever .ermd eval done awaiting orders.
[2019-01-30] MEDS ORDERED: VOLTAREN100 G1 TP (13:54)
[2019-01-30] MEDS ORDERED: ACETAMINOPHEN-1 EAC1 ORAL (13:54)
[2019-01-30] MEDS ORDERED: ACYCLOVIR400 MG ORAL (13:54)
[2019-01-30 14:06] VITALS: BP 114/63
--- NOTE | 2019-01-30 14:06 | NUR ---
ER DISCHARGE NOTE: Patient is cleared to be discharged per ERMD, pt is aox4, on room air, with stable vital signs. pt was given dc and prescription instructions, pt was able to verbalize understanding, pt id band removed. pt is able to ambulate with steady gait. pt took all belongings.
== END 2019-01-30 14:06 | disposition home or self-care (01) ==
LOC: EMR 13:32
DX: R21 Rash and other nonspecific skin eruption (principal)
CPT/HCPCS: 99282

== ENCOUNTER 2019-02-16 20:12 | Inpatient (IN) | payer MEDICARE, MEDICAID ==
[~2019-02-16] VITALS: Ht 154.9 cm; Wt 57.6 kg
[~2019-02-16 20:12] MED LIST changes: +ACETAMINOPHEN-1 EAC1 ORAL; +ACYCLOVIR400 MG ORAL; +OYSTER SHELL C1 EA13 PO; +VOLTAREN100 G1 TP
--- NOTE | 2019-02-16 20:14 | NUR ---
ED Nurse Note: CALLED PT IN WAITING TO BE TRIAGED. PT NOT PRESENT AT THE TIME.
--- NOTE | 2019-02-16 20:20 | NUR ---
ED Nurse Note: PT AMBULATED TO ED WITH SON C/O LOWER LEFT ABD PAIN ACCOMPANIED WITH N/V/D X 1 WEEK. AO4. NAD. VSS.
[2019-02-16] MEDS ORDERED: Isovue-300 100ml vial INJ PRN (20:30)
[2019-02-16] MEDS ORDERED: Morphine Sulfate 4mg/ml Inj (IV USE ONLY) IVP ONE (20:30)
--- NOTE | 2019-02-16 20:30 | NUR ---
ED Nurse Note: IV ACCESS ESTABLISHED. BLOOD AND URINE COLLECTED; SENT DOWN TO LAB.
--- NOTE | 2019-02-16 20:34 | Emergency Room Report ---
History of Present Illness General Chief Complaint: Abdominal Pain Source: Patient (Matthew Tolliver MD) Present Illness HPI The patient presents with 4 days of left lower quadrant pain. Is intermittent. When she has it it severe at 10/10 and she feels the urge to vomit. She said some loose stools that have been dark in color but not black and tarry. She has slight amount of dysuria also. She is never had this problem before. She had colonoscopy many years ago that was normal. She denies vomiting any blood or coffee grounds. She feels weak. No prior abdominal surgery. No history of renal stones. No fevers, chills, sore throat, chest pain, palpitations, shortness of breath, joint pain, rashes, depression, anxiety, visual changes, headache. H/O HTN. (Matthew Tolliver MD) Allergies: Coded Allergies: No Known Allergies (Unverified , 01/03/17) Patient History Past Medical History: see triage record Past Surgical History: none Social History: Denies: smoking, alcohol use, drug use Social History Narrative From [facility] Now: No Reviewed Nursing Documentation: PMH: Agreed; PSxH: Agreed (Matthew Tolliver MD) Nursing Documentation-PMH Past Medical History: No History, Except For Hx Cardiac Problems: Yes Hx Hypertension: Yes Hx Cancer: No Hx Gastrointestinal Problems: Yes - GERD Hx Neurological Problems: No (Matthew Tolliver MD) Review of Systems All Other Systems: negative except mentioned in HPI (Matthew Tolliver MD) Physical Exam Vital Signs Date Time Temp Pulse Resp B/P (MAP) Pulse Ox O2 Delivery O2 Flow Rate FiO2 02/16/19 20:14 98.1 71 16 144/72 (96) 99 Room Air Sp02 EP Interpretation: reviewed, normal General Appearance: well appearing, no apparent distress, GCS 15, other - Vomiting Head: normocephalic Eyes: bilateral eye normal inspection, bilateral eye PERRL, bilateral eye EOMI ENT: moist mucus membranes Neck: supple Respiratory: lungs clear, normal breath sounds Cardiovascular #1: regular rate, rhythm Cardiovascular #2: 2+ radial (R) Gastrointestinal: normal inspection, normal bowel sounds, no mass, non- distended, no rebound, guarding - Left lower quadrant, tenderness Genitourinary: no CVA tenderness Musculoskeletal: back normal, gait/station normal, normal range of motion Neurologic: alert, oriented x3, grossly normal Psychiatric: mood/affect normal Skin: no rash (Matthew Tolliver MD) Medical Decision Making Diagnostic Impression: Primary Impression: Abdominal pain Qualified Codes: R10.32 - Left lower quadrant pain Additional Impressions: Nausea & vomiting Qualified Codes: R11.2 - Nausea with vomiting, unspecified Hyponatremia ER Course Patient presents with left lower quadrant pain loose stools and vomiting been present for 4 days. Differential includes diverticulitis, urinary tract infection, pyelonephritis, renal stone amongst others. Evaluation will be with EKG, chest x-ray CT the abdomen and pelvis and labs. The patient will receive IV hydration and analgesia. WBC normal. Sodium low. Urinalysis clear. Urine sodium 21. Vomiting here. Zofran repeat. Pain is improved. Nonsurgical abdomen. Due to hyponatremia, vomiting and abdominal pain patient admitted medical floor observation. Await CT. Signed out to Dr. Beasley. Laboratory Tests Test 02/16/19 20:30 02/16/19 21:30 White Blood Count 5.9 K/UL (4.8-10.8) Red Blood Count 4.10 M/UL (4.20-5.40) L Hemoglobin 11.4 G/DL (12.0-16.0) L Hematocrit 33.9 % (37.0-47.0) L Mean Corpuscular Volume 83 FL (80-99) Mean Corpuscular Hemoglobin 27.9 PG (27.0-31.0) Mean Corpuscular Hemoglobin Concent 33.7 G/DL (32.0-36.0) Red Cell Distribution Width 11.5 % (11.6-14.8) L Platelet Count 218 K/UL (150-450) Mean Platelet Volume 6.5 FL (6.5-10.1) Neutrophils (%) (Auto) 51.1 % (45.0-75.0) Lymphocytes (%) (Auto) 33.0 % (20.0-45.0) Monocytes (%) (Auto) 10.7 % (1.0-10.0) H Eosinophils (%) (Auto) 3.7 % (0.0-3.0) H Basophils (%) (Auto) 1.5 % (0.0-2.0) Prothrombin Time 9.8 SEC (9.30-11.50) Prothrombin Time INR 0.9 (0.9-1.1) PTT 26 SEC (23-33) Sodium Level 123 MMOL/L (136-145) L Potassium Level 3.8 MMOL/L (3.5-5.1) Chloride Level 90 MMOL/L (98-107) L Carbon Dioxide Level 26 MMOL/L (21-32) Anion Gap 7 mmol/L (5-15) Blood Urea Nitrogen 4 mg/dL (7-18) L Creatinine 0.8 MG/DL (0.55-1.30) Estimate Glomerular Filtration Rate mL/min (>60) Glucose Level 111 MG/DL (74-106) H Calcium Level 9.0 MG/DL (8.5-10.1) Total Bilirubin 1.0 MG/DL (0.2-1.0) Aspartate Amino Transferase (AST) 22 U/L (15-37) Alanine Aminotransferase (ALT) 16 U/L (12-78) Alkaline Phosphatase 87 U/L (46-116) Troponin I 0.009 ng/mL (0.000-0.056) Total Protein 7.1 G/DL (6.4-8.2) Albumin 4.0 G/DL (3.4-5.0) Globulin 3.1 g/dL Albumin/Globulin Ratio 1.3 (1.0-2.7) Lipase 107 U/L (73-393) Urine Color Pale yellow Urine Appearance Clear Urine pH 7 (4.5-8.0) Urine Specific [place] 1.005 (1.005-1.035) Urine Protein Negative (NEGATIVE) Urine Glucose (UA) Negative (NEGATIVE) Urine Ketones Negative (NEGATIVE) Urine Blood Negative (NEGATIVE) Urine Nitrite Negative (NEGATIVE) Urine Bilirubin Negative (NEGATIVE) Urine Urobilinogen Normal MG/DL (0.0-1.0) Urine Leukocyte Esterase 1+ (NEGATIVE) H Urine RBC 0-2 /HPF (0 - 2) Urine WBC 2-4 /HPF (0 - 2) Urine Squamous Epithelial Cells Few /LPF (NONE/OCC) Urine Bacteria Few /HPF (NONE) Urine Random Sodium 21 mmol/L (20-110) (Matthew Tolliver MD) ER Course Patient signed out to me. She is pending observation for nausea vomiting and hyponatremia. CT scan was pending. CT is unremarkable. Patient was transferred to the floor. (Armando Beasley MD) EKG Diagnostic Results Rate: normal Rhythm: NSR ST Segments: no acute changes (Matthew Tolliver MD) Rhythm Strip Diag. Results EP Interpretation: yes Rhythm: NSR, no PVC's, no ectopy (Matthew Tolliver MD) CT/MRI/US Diagnostic Results CT/MRI/US Diagnostic Results : Imaging Test Ordered: The abdomen and pelvis Impression Read by radiologist. CT ABDOMEN & PELVIS With Contrast: Colonic diverticulosis most pronounced in the sigmoid colon without diverticulitis. Normal appendix. No acute process along the GI tract. Small sliding hiatal hernia. Cholelithiasis without cholecystitis. Radiologist: Kirit Perea MD (Armando Beasley MD) Last Vital Signs Date Time Temp Pulse Resp B/P (MAP) Pulse Ox O2 Delivery O2 Flow Rate FiO2 02/16/19 23:00 98.1 75 14 111/76 100 Room Air Status: improved (Matthew Tolliver MD) Disposition: ADMITTED INPATIENT Condition: Serious Matthew Tolliver MD Feb 16, 2019 20:34 Armando Beasley MD Feb 16, 2019 23:13
[2019-02-16 20:48] LABS: BASOPHILS % (AUTO) 1.5 % (0.0-2.0); EOSINOPHILS % (AUTO) 3.7 % (0.0-3.0); HEMATOCRIT 33.9 % (37.0-47.0); HEMOGLOBIN 11.4 G/DL (12.0-16.0); MEAN CORPUSCULAR VOLUME 83 FL (80-99); MONOCYTES % (AUTO) 10.7 % (1.0-10.0); NEUTROPHILS % (AUTO) 51.1 % (45.0-75.0); PLATELET COUNT 218 K/UL (150-450); RED CELL DISTRIBUTION WIDTH 11.5 % (11.6-14.8); WHITE BLOOD COUNT 5.9 K/UL (4.8-10.8)
[2019-02-16 20:59] LABS: INR 0.9 (0.9-1.1)
[2019-02-16 21:03] VITALS: BP 144/72
[2019-02-16 21:03] LABS: ANION GAP 7 mmol/L (5-15); BLOOD UREA NITROGEN 4 mg/dL (7-18); CARBON DIOXIDE 26 MMOL/L (21-32); CHLORIDE 90 MMOL/L (98-107); CREATININE 0.8 MG/DL (0.55-1.30); POTASSIUM 3.8 MMOL/L (3.5-5.1); SODIUM 123 MMOL/L (136-145)
[2019-02-16 21:13] LABS: ALANINE AMINOTRANSFERASE 16 U/L (12-78); ALBUMIN/GLOBULIN RATIO 1.3 (1.0-2.7); ALKALINE PHOSPHATASE 87 U/L (46-116); ASPARTATE AMINO TRANSFERASE 22 U/L (15-37)
--- NOTE | 2019-02-16 21:30 | NUR ---
ED Nurse Note: URINE COLLECTED; SENT DOWN TO LAB.
[2019-02-16 21:57] LABS: APPEARANCE,URINE CLEAR; BILIRUBIN, URINE NEGATIVE (NEGATIVE); COLOR,URINE PALE YELLOW; GLUCOSE, URINE (UA) NEGATIVE (NEGATIVE); KETONES,URINE NEGATIVE (NEGATIVE); LEUKOCYTE ESTERASE ,URINE 1+ (NEGATIVE); NITRITE,URINE NEGATIVE (NEGATIVE); PH,URINE 7 (4.5-8.0); PROTEIN,URINE NEGATIVE (NEGATIVE); UROBILINOGEN,URINE NORMAL MG/DL (0.0-1.0)
[2019-02-16 22:00] VITALS: BP 111/76
--- NOTE | 2019-02-16 22:38 | NUR ---
ED Nurse Note: pt down to imaging
--- NOTE | 2019-02-16 22:45 | NUR ---
ED Nurse Note: TELEPHONE REPORT GIVEN TO ALINE SUÁREZ.
--- NOTE | 2019-02-16 23:05 | NUR ---
NURSE NOTES: Received report from Saul Washington RN in ER at 2245. Patient arrived on the unit at 2305. Transferred in the [facility]. Patient laying on the bed and vomiting small amount of emesis in the bag that already had some emesis (total: 200 ml when emptied) . AAO x 4 but speaks [place] only. Patient is breathing unlabored and evenly without respiratory distress, discomfort, or SOB noted. Iv noted on the LAC intact and saline locked. Belongings confirmed with patient and he's son who came in at 2325. Denies pain at this time. Vital signs stable. Able to ambulate with steady gait to the restroom. Bed placed at the lowest with brakes and side rails up for safety. Oriented to the room and policies. Call light placed within reach and reinforced to call if assistance needed. Will continue to monitor and provide care as ordered.
--- NOTE | 2019-02-16 23:10 | Diagnostic Imaging Report ---
Clinical Indication: Abdominal pain, nausea vomiting and diarrhea x1 week Technique: No oral contrast utilized, per patient request, unable to tolerate. IV administration nonionic contrast. Venous phase spiral acquisition obtained through the abdomen and pelvis. Multiplanar reconstructions were generated. Total dose length product 791.17 mGycm. CTDIvol(s) 16.38 mGy. Dose reduction achieved using automated exposure control Comparison: 04/18/2018 Findings: There is colonic diverticulosis. No evidence of diverticulitis. The appendix is normal. No small bowel distention. No free or loculated intraperitoneal gas or fluid is evident. There is a small sliding-type hiatal hernia. What is presumably food is seen within the gastric fundus, likely contrast. The duodenum is unremarkable. The liver again demonstrates a somewhat irregular appearing cyst at the dome in segment 8. The gallbladder contains a gallstone. No biliary ductal dilatation. The pancreas, spleen, adrenals are all unremarkable. Again demonstrated are bilateral renal subcentimeter low-attenuation lesions which are too small to characterize, most likely benign cortical cysts. No renal or ureteral calculi, hydronephrosis, hydroureter. The bladder is unremarkable. Uterus and adnexal structures appear unremarkable except that the uterus is retroverted. There are degenerative changes of the lumbar spine. There is mild grade 1 L5 on S1 spondylolisthesis without evidence of spondylolysis. Probably on the basis of degenerative changes. The included lung bases demonstrate posterior dependent atelectatic changes. The heart is enlarged. Impression: No acute process Colonic diverticulosis. No evidence of diverticulitis Cholelithiasis Cardiomegaly Right lobe liver cyst, also previously demonstrated Bilateral subcentimeter low-attenuation renal lesions, too small to characterize, most likely benign simple cortical cysts, also previously demonstrated Other findings as noted, including degenerative spondylosis, mild anterior offset of L5 on S1, dependent pulmonary atelectasis, hiatal hernia This agrees with the preliminary interpretation provided overnight by [employer] teleradiology service. The CT scanner at [facility] is accredited by the [employer] and the scans are performed using protocols designed to limit radiation exposure to as low as reasonably achievable to attain images of sufficient resolution adequate for diagnostic evaluation.
--- NOTE | 2019-02-16 23:53 | NUR ---
NURSE NOTES: Called Dr. Wall to receive admission orders. Was not able to reach Dr. Wall at this time but left message to call back. Will continue to follow up.
[2019-02-17] VITALS: BP 103/58
[2019-02-17] MEDS ORDERED: Morphine Sulfate 4mg/ml Inj (IV USE ONLY) IVP PRN (01:00)
--- NOTE | 2019-02-17 01:08 | NUR ---
NURSE NOTES: Received call back from Dr. Ash for admission orders. New orders received. Will follow up as ordered and continue to monitor.
[2019-02-17 04:00] VITALS: BP 96/53
[2019-02-17 06:46] LABS: BASOPHILS % (AUTO) 0.6 % (0.0-2.0); EOSINOPHILS % (AUTO) 1.6 % (0.0-3.0); HEMATOCRIT 32.4 % (37.0-47.0); HEMOGLOBIN 10.7 G/DL (12.0-16.0); LYMPHOCYTES % (AUTO) 29.6 % (20.0-45.0); MEAN CORPUSCULAR VOLUME 85 FL (80-99); MONOCYTES % (AUTO) 9.1 % (1.0-10.0); NEUTROPHILS % (AUTO) 59.2 % (45.0-75.0); PLATELET COUNT 190 K/UL (150-450); RED CELL DISTRIBUTION WIDTH 12.2 % (11.6-14.8); WHITE BLOOD COUNT 4.1 K/UL (4.8-10.8)
[2019-02-17 07:35] LABS: ALANINE AMINOTRANSFERASE 13 U/L (12-78); ALBUMIN/GLOBULIN RATIO 0.9 (1.0-2.7); ALKALINE PHOSPHATASE 71 U/L (46-116); ANION GAP 5 mmol/L (5-15); ASPARTATE AMINO TRANSFERASE 21 U/L (15-37); BILIRUBIN,TOTAL 0.8 MG/DL (0.2-1.0); BLOOD UREA NITROGEN 4 mg/dL (7-18); CALCIUM 8.5 MG/DL (8.5-10.1); CARBON DIOXIDE 23 MMOL/L (21-32); CHLORIDE 101 MMOL/L (98-107); CREATININE 0.7 MG/DL (0.55-1.30); POTASSIUM 4.6 MMOL/L (3.5-5.1); SODIUM 129 MMOL/L (136-145)
--- NOTE | 2019-02-17 07:44 | NUR ---
HAND-OFF: Report given to ALINE Elias. Clarification of the morphine and zofran order will be followed up by ALINE Elias. Patient in stable condition. Denies abdominal pain at this time.
--- NOTE | 2019-02-17 07:49 | NUR ---
NURSE NOTES: Received report from Svetlana, RN. Rounding done with outgoing nurse. Patient a/o x 4, in bed, Polish speaking. IV fluid is running at 75ml/hr. Denies pain at this time. No respiratory discomfort noted. Bed in lowest position, call light within reach. Will continue to monitor.
[2019-02-17 08:00] VITALS: BP 119/60
--- NOTE | 2019-02-17 08:56 | History and Physical ---
History of Present Illness General Date patient seen: Feb 17, 2019 Time patient seen: 10:00 Reason for Hospitalization: Abdominal Pain Present Illness HPI 74 yo F with PMH of GERD and HTN, presents for several days of emesis and LLQ abd pain. Patient denies vomiting blood, denies diarrhea, fevers chills. CT scan from ED shows NAD, diverticulosis but no diverticulitis. Patient was then admitted with IVF for observation. Patient still is unable to tolerate liquids and will need admission for further evaluation. After discussion of code status, patient requests to remain full code. Allergies: Coded Allergies: No Known Allergies (Unverified , 01/03/17) Medication History Scheduled Acyclovir* (Acyclovir*), 800 MG ORAL TID Aspirin* (Aspirin*), 81 MG ORAL DAILY, (Reported) Calcium Carbonate/Vitamin D3 (Oyster Shell Calcium +D Tablet), 1 EACH PO DAILY, (Reported) Cephalexin* (Keflex*), 500 MG ORAL EVERY 6 HOURS, (Reported) Diclofenac Sodium (Voltaren), 1 INCH TP BID Hydrochlorothiazide* (Hydrochlorothiazide*), 12.5 MG ORAL DAILY, (Reported) Lisinopril* (Lisinopril*), 10 MG ORAL DAILY Omeprazole (Omeprazole), 20 MG ORAL DAILY, (Reported) Scheduled PRN Acetaminophen (Tylenol), 650 MG ORAL Q8HR PRN for Prn Pain/Headache/Temp > 101 Acetaminophen With Codeine (T#3) (Tylenol #3 Tab*), 1 TAB ORAL Q8H PRN for For Pain Patient History Healthcare decision maker Resuscitation status Full Code Advanced Directive on File No Review of Systems All Other Systems: negative except mentioned in HPI Physical Exam General Appearance: WD/WN, no apparent distress, alert Lines, tubes and drains: peripheral HEENT: normocephalic, atraumatic, PERRL Neck: non-tender, normal alignment, supple Respiratory/Chest: lungs clear, normal breath sounds, no respiratory distress, no accessory muscle use Cardiovascular/Chest: normal rate, regular rhythm, no JVD Abdomen: non tender, soft, no organomegaly, no mass Extremities: normal range of motion, non-tender, no calf tenderness Neurologic: programmer analyst health it II-XII grossly normal Musculoskeletal: normal muscle bulk Last 24 Hour Vital Signs Date Time Temp Pulse Resp B/P (MAP) Pulse Ox O2 Delivery O2 Flow Rate FiO2 02/17/19 04:00 97.2 61 16 96/53 (67) 98 02/17/19 00:00 97.3 64 16 103/58 (73) 96 02/16/19 23:55 Room Air 02/16/19 23:00 98.1 75 14 111/76 100 Room Air 02/16/19 22:00 98.1 75 14 111/76 100 Room Air 02/16/19 21:07 98.1 02/16/19 21:03 98.1 71 16 144/72 99 Room Air 02/16/19 21:03 71 16 Room Air 02/16/19 20:14 98.1 71 16 144/72 (96) 99 Room Air Intake and Output 02/16/19 02/17/19 19:00 07:00 Intake Total 375 ml Output Total 250 ml Balance 125 ml Intake Oral 0 ml IV Total 375 ml Output Emesis 250 ml # Voids 4 Laboratory Tests Test 02/16/19 20:30 02/16/19 21:30 02/17/19 06:04 White Blood Count 5.9 K/UL (4.8-10.8) 4.1 K/UL (4.8-10.8) L Red Blood Count 4.10 M/UL (4.20-5.40) L 3.80 M/UL (4.20-5.40) L Hemoglobin 11.4 G/DL (12.0-16.0) L 10.7 G/DL (12.0-16.0) L Hematocrit 33.9 % (37.0-47.0) L 32.4 % (37.0-47.0) L Mean Corpuscular Volume 83 FL (80-99) 85 FL (80-99) Mean Corpuscular Hemoglobin 27.9 PG (27.0-31.0) 28.2 PG (27.0-31.0) Mean Corpuscular Hemoglobin Concent 33.7 G/DL (32.0-36.0) 33.1 G/DL (32.0-36.0) Red Cell Distribution Width 11.5 % (11.6-14.8) L 12.2 % (11.6-14.8) Platelet Count 218 K/UL (150-450) 190 K/UL (150-450) Mean Platelet Volume 6.5 FL (6.5-10.1) 7.0 FL (6.5-10.1) Neutrophils (%) (Auto) 51.1 % (45.0-75.0) 59.2 % (45.0-75.0) Lymphocytes (%) (Auto) 33.0 % (20.0-45.0) 29.6 % (20.0-45.0) Monocytes (%) (Auto) 10.7 % (1.0-10.0) H 9.1 % (1.0-10.0) Eosinophils (%) (Auto) 3.7 % (0.0-3.0) H 1.6 % (0.0-3.0) Basophils (%) (Auto) 1.5 % (0.0-2.0) 0.6 % (0.0-2.0) Prothrombin Time 9.8 SEC (9.30-11.50) Prothromb Time International Ratio 0.9 (0.9-1.1) Activated Partial Thromboplast Time 26 SEC (23-33) Sodium Level 123 MMOL/L (136-145) L 129 MMOL/L (136-145) L Potassium Level 3.8 MMOL/L (3.5-5.1) 4.6 MMOL/L (3.5-5.1) Chloride Level 90 MMOL/L (98-107) L 101 MMOL/L (98-107) Carbon Dioxide Level 26 MMOL/L (21-32) 23 MMOL/L (21-32) Anion Gap 7 mmol/L (5-15) 5 mmol/L (5-15) Blood Urea Nitrogen 4 mg/dL (7-18) L 4 mg/dL (7-18) L Creatinine 0.8 MG/DL (0.55-1.30) 0.7 MG/DL (0.55-1.30) Estimat Glomerular Filtration Rate mL/min (>60) mL/min (>60) Glucose Level 111 MG/DL (74-106) H 98 MG/DL (74-106) Calcium Level 9.0 MG/DL (8.5-10.1) 8.5 MG/DL (8.5-10.1) Total Bilirubin 1.0 MG/DL (0.2-1.0) 0.8 MG/DL (0.2-1.0) Aspartate Amino Transf (AST/SGOT) 22 U/L (15-37) 21 U/L (15-37) Alanine Aminotransferase (ALT/SGPT) 16 U/L (12-78) 13 U/L (12-78) Alkaline Phosphatase 87 U/L (46-116) 71 U/L (46-116) Troponin I 0.009 ng/mL (0.000-0.056) Total Protein 7.1 G/DL (6.4-8.2) 6.3 G/DL (6.4-8.2) L Albumin 4.0 G/DL (3.4-5.0) 3.0 G/DL (3.4-5.0) L Globulin 3.1 g/dL 3.3 g/dL Albumin/Globulin Ratio 1.3 (1.0-2.7) 0.9 (1.0-2.7) L Lipase 107 U/L (73-393) Urine Color Pale yellow Urine Appearance Clear Urine pH 7 (4.5-8.0) Urine Specific [place] 1.005 (1.005-1.035) Urine Protein Negative (NEGATIVE) Urine Glucose (UA) Negative (NEGATIVE) Urine Ketones Negative (NEGATIVE) Urine Blood Negative (NEGATIVE) Urine Nitrite Negative (NEGATIVE) Urine Bilirubin Negative (NEGATIVE) Urine Urobilinogen Normal MG/DL (0.0-1.0) Urine Leukocyte Esterase 1+ (NEGATIVE) H Urine RBC 0-2 /HPF (0 - 2) Urine WBC 2-4 /HPF (0 - 2) Urine Squamous Epithelial Cells Few /LPF (NONE/OCC) Urine Bacteria Few /HPF (NONE) Urine Random Sodium 21 mmol/L (20-110) Amylase Level 72 U/L (25-115) Height (Feet): 5 Height (Inches): 1.00 Weight (Pounds): 133 Medications Current Medications Medications (Trade) Dose Ordered Sig/Margot Route PRN Reason Start Time Stop Time Status Last Admin Dose Admin Barium Sulfate (Readi-Cat 2) 450 ml NOW PRN ORAL Radiology Procedure 02/16/19 20:30 02/18/19 20:29 Iopamidol (Isovue-300 100ml) 100 ml NOW PRN INJ Radiology Procedure 02/16/19 20:30 Sodium Chloride 1,000 ml @ 75 mls/hr [id number] IV 02/17/19 01:00 03/19/19 00:59 02/17/19 01:42 Assessment/Plan Assessment/Plan: # Hypovolemic Hyponatremia from vomiting - improving - IVF w NS - na 123->129 - Renal consult - ctm bmp # Abd pain /N/V from gastroenteritis - CT scan negative - normal wbc, no fevers - IVF - advance diet onc appropriate - supportive care - no indication for abx - zofran prn - pain control # HTN - cont home med: lisinopril 10 mg po daily # GERD - cont omeprazole 40 mg po daily FULL CODE discussed code status on admission with 17 minutes of time spent Leonela Mcmahon DO Feb 17, 2019 08:56
--- NOTE | 2019-02-17 09:43 | Consultation ---
History of Present Illness General Date patient seen: Feb 17, 2019 Chief Complaint: Abdominal Pain Reason for Consultation: Hyponatremia Present Illness HPI 74 year old with past medical history significant for hypertension present with 4 days of left lower quadrant painm intermittent and severe in quality and she feels the urge to vomit. She said some loose stools that have been dark in color but not black and tarry. She has slight amount of dysuria also. She is never had this problem before. She had colonoscopy many years ago that was normal. She denies vomiting any blood or coffee grounds. She feels weak. No prior abdominal surgery. No history of renal stones.No fevers, chills, sore throat, chest pain, palpitations, shortness of breath, joint pain, rashes, depression, anxiety, visual changes, headache. on presentation sodium noted to be low at 123. She was given 1L NS and follow up BMP with improving hyponatremia of 129. She is on hydrochlorothiazide 12.5mg daily . Allergies: Coded Allergies: No Known Allergies (Unverified , 01/03/17) Medication History Scheduled Acyclovir* (Acyclovir*), 800 MG ORAL TID Aspirin* (Aspirin*), 81 MG ORAL DAILY, (Reported) Calcium Carbonate/Vitamin D3 (Oyster Shell Calcium +D Tablet), 1 EACH PO DAILY, (Reported) Cephalexin* (Keflex*), 500 MG ORAL EVERY 6 HOURS, (Reported) Diclofenac Sodium (Voltaren), 1 INCH TP BID Hydrochlorothiazide* (Hydrochlorothiazide*), 12.5 MG ORAL DAILY, (Reported) Lisinopril* (Lisinopril*), 10 MG ORAL DAILY Omeprazole (Omeprazole), 20 MG ORAL DAILY, (Reported) Scheduled PRN Acetaminophen (Tylenol), 650 MG ORAL Q8HR PRN for Prn Pain/Headache/Temp > 101 Acetaminophen With Codeine (T#3) (Tylenol #3 Tab*), 1 TAB ORAL Q8H PRN for For Pain Patient History Healthcare decision maker Resuscitation status Full Code Advanced Directive on File No Review of Systems Constitutional: Reports: malaise, weakness Respiratory: Denies: no symptoms, see HPI, cough, orthopnea, shortness of breath, stridor, wheezing, BAILON, sputum, other Cardiovascular: Denies: no symptoms, see HPI, chest pain, edema, palpitations, syncope, PND, other Gastrointestinal: Reports: abdominal pain, nausea, vomiting Genitourinary: Denies: no symptoms, see HPI, discharge, dysuria, frequency, hematuria, pain, retention, incontinence, urgency, vag bleed/dc, other Musculoskeletal: Denies: no symptoms, see HPI, back pain, gout, joint pain, joint swelling, muscle pain, muscle stiffness, other Skin: Denies: no symptoms, see HPI, rash, change in color, change in hair/nails , dryness, lesions, other Psychiatric: Denies: no symptoms, see HPI, prior hx, anxiety, depressed feelings, emotional problems, SI, HI, hallucinations, other Neurological: Denies: no symptoms, see HPI, headache, numbness, paresthesia, seizure, tingling, tremors, focal weakness, syncope, dizziness, other Endocrine: Denies: no symptoms, see HPI, excessive sweating, flushing, intolerance to temperature, increased thirst, increased urine, unexplained weight loss, other Hematologic/Lymphatic: Denies: no symptoms, see HPI, anemia, blood clots, easy bleeding, easy bruising, swollen glands, diathesis, other Physical Exam General Appearance: WD/WN, no apparent distress, alert HEENT: normocephalic, atraumatic Neck: non-tender, normal alignment, supple Respiratory/Chest: lungs clear Cardiovascular/Chest: normal rate, regular rhythm Abdomen: normal bowel sounds, non tender, soft Last 24 Hour Vital Signs Date Time Temp Pulse Resp B/P (MAP) Pulse Ox O2 Delivery O2 Flow Rate FiO2 02/17/19 08:00 97.4 69 20 119/60 (79) 98 02/17/19 04:00 97.2 61 16 96/53 (67) 98 02/17/19 00:00 97.3 64 16 103/58 (73) 96 02/16/19 23:55 Room Air 02/16/19 23:00 98.1 75 14 111/76 100 Room Air 02/16/19 22:00 98.1 75 14 111/76 100 Room Air 02/16/19 21:07 98.1 02/16/19 21:03 98.1 71 16 144/72 99 Room Air 02/16/19 21:03 71 16 Room Air 02/16/19 20:14 98.1 71 16 144/72 (96) 99 Room Air Intake and Output 02/16/19 02/17/19 19:00 07:00 Intake Total 375 ml Output Total 250 ml Balance 125 ml Intake Oral 0 ml IV Total 375 ml Output Emesis 250 ml # Voids 4 Laboratory Tests Test 02/16/19 20:30 02/16/19 21:30 02/17/19 06:04 White Blood Count 5.9 K/UL (4.8-10.8) 4.1 K/UL (4.8-10.8) L Red Blood Count 4.10 M/UL (4.20-5.40) L 3.80 M/UL (4.20-5.40) L Hemoglobin 11.4 G/DL (12.0-16.0) L 10.7 G/DL (12.0-16.0) L Hematocrit 33.9 % (37.0-47.0) L 32.4 % (37.0-47.0) L Mean Corpuscular Volume 83 FL (80-99) 85 FL (80-99) Mean Corpuscular Hemoglobin 27.9 PG (27.0-31.0) 28.2 PG (27.0-31.0) Mean Corpuscular Hemoglobin Concent 33.7 G/DL (32.0-36.0) 33.1 G/DL (32.0-36.0) Red Cell Distribution Width 11.5 % (11.6-14.8) L 12.2 % (11.6-14.8) Platelet Count 218 K/UL (150-450) 190 K/UL (150-450) Mean Platelet Volume 6.5 FL (6.5-10.1) 7.0 FL (6.5-10.1) Neutrophils (%) (Auto) 51.1 % (45.0-75.0) 59.2 % (45.0-75.0) Lymphocytes (%) (Auto) 33.0 % (20.0-45.0) 29.6 % (20.0-45.0) Monocytes (%) (Auto) 10.7 % (1.0-10.0) H 9.1 % (1.0-10.0) Eosinophils (%) (Auto) 3.7 % (0.0-3.0) H 1.6 % (0.0-3.0) Basophils (%) (Auto) 1.5 % (0.0-2.0) 0.6 % (0.0-2.0) Prothrombin Time 9.8 SEC (9.30-11.50) Prothromb Time International Ratio 0.9 (0.9-1.1) Activated Partial Thromboplast Time 26 SEC (23-33) Sodium Level 123 MMOL/L (136-145) L 129 MMOL/L (136-145) L Potassium Level 3.8 MMOL/L (3.5-5.1) 4.6 MMOL/L (3.5-5.1) Chloride Level 90 MMOL/L (98-107) L 101 MMOL/L (98-107) Carbon Dioxide Level 26 MMOL/L (21-32) 23 MMOL/L (21-32) Anion Gap 7 mmol/L (5-15) 5 mmol/L (5-15) Blood Urea Nitrogen 4 mg/dL (7-18) L 4 mg/dL (7-18) L Creatinine 0.8 MG/DL (0.55-1.30) 0.7 MG/DL (0.55-1.30) Estimat Glomerular Filtration Rate mL/min (>60) mL/min (>60) Glucose Level 111 MG/DL (74-106) H 98 MG/DL (74-106) Calcium Level 9.0 MG/DL (8.5-10.1) 8.5 MG/DL (8.5-10.1) Total Bilirubin 1.0 MG/DL (0.2-1.0) 0.8 MG/DL (0.2-1.0) Aspartate Amino Transf (AST/SGOT) 22 U/L (15-37) 21 U/L (15-37) Alanine Aminotransferase (ALT/SGPT) 16 U/L (12-78) 13 U/L (12-78) Alkaline Phosphatase 87 U/L (46-116) 71 U/L (46-116) Troponin I 0.009 ng/mL (0.000-0.056) Total Protein 7.1 G/DL (6.4-8.2) 6.3 G/DL (6.4-8.2) L Albumin 4.0 G/DL (3.4-5.0) 3.0 G/DL (3.4-5.0) L Globulin 3.1 g/dL 3.3 g/dL Albumin/Globulin Ratio 1.3 (1.0-2.7) 0.9 (1.0-2.7) L Lipase 107 U/L (73-393) Urine Color Pale yellow Urine Appearance Clear Urine pH 7 (4.5-8.0) Urine Specific [place] 1.005 (1.005-1.035) Urine Protein Negative (NEGATIVE) Urine Glucose (UA) Negative (NEGATIVE) Urine Ketones Negative (NEGATIVE) Urine Blood Negative (NEGATIVE) Urine Nitrite Negative (NEGATIVE) Urine Bilirubin Negative (NEGATIVE) Urine Urobilinogen Normal MG/DL (0.0-1.0) Urine Leukocyte Esterase 1+ (NEGATIVE) H Urine RBC 0-2 /HPF (0 - 2) Urine WBC 2-4 /HPF (0 - 2) Urine Squamous Epithelial Cells Few /LPF (NONE/OCC) Urine Bacteria Few /HPF (NONE) Urine Random Sodium 21 mmol/L (20-110) Amylase Level 72 U/L (25-115) Height (Feet): 5 Height (Inches): 1.00 Weight (Pounds): 133 Medications Current Medications Medications (Trade) Dose Ordered Sig/Margot Route PRN Reason Start Time Stop Time Status Last Admin Dose Admin Barium Sulfate (Readi-Cat 2) 450 ml NOW PRN ORAL Radiology Procedure 02/16/19 20:30 02/18/19 20:29 Iopamidol (Isovue-300 100ml) 100 ml NOW PRN INJ Radiology Procedure 02/16/19 20:30 Sodium Chloride 1,000 ml @ 75 mls/hr [id number] IV 02/17/19 01:00 03/19/19 00:59 02/17/19 01:42 Assessment/Plan Problem List: (1) History of hypertension ICD Codes: Z86.79 - Personal history of other diseases of the circulatory system SNOMED: 966006938 (2) Altered mental status ICD Codes: R41.82 - Altered mental status, unspecified SNOMED: 963905959 (3) HTN (hypertension) ICD Codes: I10 - Essential (primary) hypertension SNOMED: 08707600 (4) Polydipsia ICD Codes: R63.1 - Polydipsia SNOMED: 90455087 (5) Nausea & vomiting ICD Codes: R11.2 - Nausea with vomiting, unspecified SNOMED: 73221419 Qualifiers: Qualified Codes: R11.2 - Nausea with vomiting, unspecified (6) Hyponatremia ICD Codes: E87.1 - Hypo-osmolality and hyponatremia SNOMED: 61252364 (7) Abdominal pain ICD Codes: R10.9 - Unspecified abdominal pain SNOMED: 53164639 Qualifiers: Qualified Codes: R10.32 - Left lower quadrant pain Diagnosis [place] I: #hyponatremia, likely hypovoluemic given relatively low urine sodium- improving - also thiazide induced - check urine osmol - continue NS at 75cc - hold HCTZ - ok to resume lisinopril 10mg with holding parameters - monitor I&Os - monitor electrolytes #HTN- borderline bute stable - continue NS at 75cc - hold HCTZ - ok to resume lisinopril 10mg with holding parameters #abdominal pain, n/v - antiemetics - IVF - advance diet as tolereated - CT abdomen benign Jose Lopez M.D. Feb 17, 2019 09:42
--- NOTE | 2019-02-17 10:43 | NUR ---
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 NAUSEA VOMITING . HYPONATREMIA VS: BP 144/72, P 71, T 98.0, RR 16, SpO2 99 RBC 4.10, H&H 11.4/33.9, Na 123, BUN 4 IS:NS x1L IV MORPHINE SULFATE 4mg IVP ZOFRAN 4mg IVP x2 ADMITTED TO MED/SURG DCP: RETURN TO HOME
[2019-02-17 12:00] VITALS: BP 111/61
--- NOTE | 2019-02-17 12:17 | Diagnostic Imaging Report ---
Indication: Chest pain Technique: One view of the chest Comparison: 04/12/2018 Findings: Suboptimal inspiration. Heart size upper limits normal. Lungs pleural spaces are grossly clear. No significant interim change Impression: No acute process
--- NOTE | 2019-02-17 12:57 | NUR ---
NURSE NOTES: Called Dr. Mcmahon and notified pt has pain and N/V without meds. MD said that she will put the order soon. Also reconcile home meds. MD ordered continue lisinopril 10mg daily, omeprazole 20mg daily. Noted and carried out.
[2019-02-17] MEDS ORDERED: Morphine Sulfate 2mg/ml Inj(IV/IM USE ONLY) IVP PRN (13:00)
[2019-02-17 16:00] VITALS: BP 108/55
--- NOTE | 2019-02-17 19:23 | NUR ---
NURSE NOTES:Patient received from BRADLEY JACOBS R.N. Patient A/AAOX4 Faroese speaking . patient denies any pain at this time . No s/s of distress noted . LAC g#18 NS at 75 cc/hr infusing well . safety/ fall precautions . call light within reach . bed in low position at all times . bed alarm on.
--- NOTE | 2019-02-17 19:23 | NUR ---
HAND-OFF: Report given to NORMA Galdamez.
[2019-02-17 20:00] VITALS: BP 140/63
--- NOTE | 2019-02-17 21:04 | Cardiology Report ---
APPROVED REPORT EKG Measurement Heart [id number] Normal sinus rhythm Normal ECG
[2019-02-18] VITALS: BP 134/67
[2019-02-18 04:00] VITALS: BP 112/66
--- NOTE | 2019-02-18 07:25 | NUR ---
HAND-OFF: Report given to LIZ Aranda
--- NOTE | 2019-02-18 07:44 | NUR ---
NURSE NOTES: AWAKE.ALERT. NO C/O PAIN . IN NO DISTRESS.
[2019-02-18 08:00] VITALS: BP 127/77
[2019-02-18] MEDS: Lisinopril 10mg tab ORAL SCH (08:29)
--- NOTE | 2019-02-18 09:19 | General Progress Note ---
Assessment/Plan Assessment/Plan: # Hypovolemic Hyponatremia from vomiting - IVF w NS - na 123->129 - Renal consult - ctm bmp # Abd pain /N/V from gastroenteritis - CT scan negative - normal wbc, no fevers - IVF - supportive care - no indication for abx - zofran prn - pain control - changed liquid diet to soft, to advance as tolerated # HTN - cont home med: lisinopril 10 mg po daily # GERD - cont omeprazole 40 mg po daily FULL CODE discussed code status on admission with 17 minutes of time spent Subjective Date patient seen: Feb 18, 2019 Time patient seen: 08:00 ROS Limited/Unobtainable: No Allergies: Coded Allergies: No Known Allergies (Unverified , 01/03/17) All Systems: reviewed and negative except above Subjective pain improved patient now has an apatite and tolerating po liquids amenable to advancing diet no n, v , d Objective Last 24 Hour Vital Signs Date Time Temp Pulse Resp B/P (MAP) Pulse Ox O2 Delivery O2 Flow Rate FiO2 02/18/19 08:29 127/77 02/18/19 08:11 Room Air 02/18/19 08:00 99.6 67 18 127/77 (94) 97 02/18/19 04:00 98.3 63 17 112/66 (81) 97 02/18/19 00:00 98.1 62 16 134/67 (89) 99 02/17/19 21:00 Room Air 02/17/19 20:00 98.3 66 17 140/63 (88) 99 02/17/19 16:00 98.0 64 18 108/55 (72) 96 02/17/19 12:00 98.0 65 20 111/61 (78) 99 Intake and Output 02/17/19 02/18/19 19:00 07:00 Intake Total 1200 ml 1942.5 ml Balance 1200 ml 1942.5 ml Intake Oral 300 ml 1080 ml IV Total 900 ml 862.5 ml # Voids 6 5 Laboratory Tests 02/17/19 11:55: Urine Osmolality 206L, Urine Random Sodium 74, Urine Potassium Timed 11L Height (Feet): 5 Height (Inches): 1.00 Weight (Pounds): 133 General Appearance: WD/WN, no apparent distress, alert Neck: non-tender, normal alignment, supple Cardiovascular: normal rate, regular rhythm, no JVD Respiratory/Chest: lungs clear, normal breath sounds, no respiratory distress, no accessory muscle use Abdomen: non tender, soft, no organomegaly, no mass Extremities: normal range of motion Edema: no edema noted Arm (L), no edema noted Arm (R), no edema noted Leg (L), no edema noted Leg (R), no edema noted Pedal (L), no edema noted Pedal (R), no edema noted 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
[2019-02-18] MEDS: HYDROcodone/Acetamin 5/325 tab ORAL PRN ×2 (09:37→16:45)
[2019-02-18 10:06] LABS: HEMATOCRIT 36.2 % (37.0-47.0); HEMOGLOBIN 11.8 G/DL (12.0-16.0); LYMPHOCYTES % (AUTO) 27.2 % (20.0-45.0); MEAN CORPUSCULAR VOLUME 86 FL (80-99); MONOCYTES % (AUTO) 12.1 % (1.0-10.0); NEUTROPHILS % (AUTO) 54.7 % (45.0-75.0); PLATELET COUNT 199 K/UL (150-450); RED BLOOD COUNT 4.21 M/UL (4.20-5.40); RED CELL DISTRIBUTION WIDTH 12.5 % (11.6-14.8); WHITE BLOOD COUNT 3.6 K/UL (4.8-10.8)
[2019-02-18 10:28] LABS: ANION GAP 9 mmol/L (5-15); BLOOD UREA NITROGEN 2 mg/dL (7-18); CALCIUM 8.7 MG/DL (8.5-10.1); CARBON DIOXIDE 24 MMOL/L (21-32); CHLORIDE 102 MMOL/L (98-107); CREATININE 0.9 MG/DL (0.55-1.30); POTASSIUM 3.8 MMOL/L (3.5-5.1); SODIUM 135 MMOL/L (136-145)
[2019-02-18 12:00] VITALS: BP 137/69
--- NOTE | 2019-02-18 15:39 | NUR ---
P.T NOTE: P.T EVALUATION COMPLETED. PATIENT IS CURRENTLY BASELINE INDEPENDENT WITH ADL/FUNCTIONAL MOBILITIES AND GAIT/LOCOMOTION THEREFORE BAILON NOT REQUIRE SKILLED P.T SERVICES. EDUCATED PATIENT RE: OOB ACTIVITIES VS BEDREST DURING STAY UNLESS OTHERWISE ORDERED BY PHYSICIAN. PATIENT VERBALIZE UNDERSTANDING. D/C P.T SERVICES. THANK YOU FOR THIS REFERRAL.
[2019-02-18 15:59] VITALS: BP 104/49
--- NOTE | 2019-02-18 16:12 | NUR ---
*-* INSURANCE *-* ALL CLINICALS AND REVIEWS HAVE BEEN FAXED TO: [facility] IPA: DON P: [phone] F: [phone] (FAX ALL CLINICLAS)
--- NOTE | 2019-02-18 16:17 | NUR ---
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 HYPONATREMIA . ABD PAIN VS: BP 104/49, P 58, T 97.4, RR 20, SpO2 97 WBC 3.6, H&H 11.8/36.2, Na 135, BUN 2 IS:ZOFRAN 4mg IVP NORCO 5/325 1tab ZESTRIL 10mg PROTONIX 40mg NS x1L IV PLAN: ADVANCE DIET 3E MED/SURG STATUS
--- NOTE | 2019-02-18 17:18 | Nephrology Progress Note ---
Assessment/Plan Problem List: (1) History of hypertension (2) Altered mental status (3) HTN (hypertension) (4) Polydipsia (5) Nausea & vomiting (6) Hyponatremia (7) Abdominal pain Plan #hyponatremia, likely hypovoluemic given relatively low urine sodium- improving - also thiazide induced - continue NS at 75cc for one more day - advance diet as tolerated - hold HCTZ - ok to resume lisinopril 10mg with holding parameters - monitor I&Os - monitor electrolytes #HTN- borderline bute stable - continue NS at 75cc - hold HCTZ - ok to resume lisinopril 10mg with holding parameters #abdominal pain, n/v - antiemetics - IVF - advance diet as tolerated - CT abdomen benign Subjective Interval Events/Complaints tolerating CLD sodium improved to 135 on NS at 75cc Objective Objective Last 24 Hour Vital Signs Date Time Temp Pulse Resp B/P (MAP) Pulse Ox O2 Delivery O2 Flow Rate FiO2 02/18/19 15:59 98.2 58 18 104/49 (67) 99 02/18/19 12:00 97.4 62 20 137/69 (91) 100 02/18/19 10:07 99.6 02/18/19 08:29 127/77 02/18/19 08:11 Room Air 02/18/19 08:00 99.6 67 18 127/77 (94) 97 02/18/19 04:00 98.3 63 17 112/66 (81) 97 02/18/19 00:00 98.1 62 16 134/67 (89) 99 02/17/19 21:00 Room Air 02/17/19 20:00 98.3 66 17 140/63 (88) 99 Intake and Output 02/17/19 02/18/19 19:00 07:00 Intake Total 1200 ml 1942.5 ml Balance 1200 ml 1942.5 ml Intake Oral 300 ml 1080 ml IV Total 900 ml 862.5 ml # Voids 6 5 Laboratory Tests 02/18/19 09:37: White Blood Count 3.6L, Red Blood Count 4.21, Hemoglobin 11.8L, Hematocrit 36.2L , Mean Corpuscular Volume 86, Mean Corpuscular Hemoglobin 28.1, Mean Corpuscular Hemoglobin Concent 32.7, Red Cell Distribution Width 12.5, Platelet Count 199, Mean Platelet Volume 6.9, Neutrophils (%) (Auto) 54.7, Lymphocytes (% ) (Auto) 27.2, Monocytes (%) (Auto) 12.1H, Eosinophils (%) (Auto) 5.0H, Basophils (%) (Auto) 1.0, Sodium Level 135L, Potassium Level 3.8, Chloride Level 102, Carbon Dioxide Level 24, Anion Gap 9, Blood Urea Nitrogen 2L, Creatinine 0.9, Estimat Glomerular Filtration Rate , Glucose Level 97, Calcium Level 8.7 Height (Feet): 5 Height (Inches): 1.00 Weight (Pounds): 133 General Appearance: WD/WN, no apparent distress EENT: PERRL/EOMI, normal ENT inspection Neck: non-tender, normal alignment Cardiovascular: normal peripheral pulses, normal rate, regular rhythm Respiratory/Chest: lungs clear, normal breath sounds, no respiratory distress Abdomen: normal bowel sounds, non tender, soft Neurologic: alert, oriented x 3 Jose Lopez M.D. Feb 18, 2019 17:18
[2019-02-18] MEDS: Docusate 100mg cap ORAL SCH (17:49)
--- NOTE | 2019-02-18 18:58 | NUR ---
NURSE NOTES: NO SIGNIFICANT ACUTE CHANGES. IN NO DISTRESS.
--- NOTE | 2019-02-18 19:17 | NUR ---
HAND-OFF: Report given to Dario MENEZES RN.
--- NOTE | 2019-02-18 19:48 | NUR ---
NURSE NOTES: Received report from ALINE Shaffer. Patient A&Ox4. On room air, no signs of distress or labored breathing. IV intact, patent, and infusing IV fluids. Patient ambulating in room with IV pole. Will continue with plan of care.
[2019-02-18 20:00] VITALS: BP 125/68
[2019-02-19] VITALS: BP 123/61
[2019-02-19 04:00] VITALS: BP 134/74
[2019-02-19 06:20] LABS: BASOPHILS % (AUTO) 1.5 % (0.0-2.0); EOSINOPHILS % (AUTO) 5.2 % (0.0-3.0); HEMATOCRIT 32.3 % (37.0-47.0); HEMOGLOBIN 10.5 G/DL (12.0-16.0); LYMPHOCYTES % (AUTO) 25.4 % (20.0-45.0); MEAN CORPUSCULAR VOLUME 86 FL (80-99); MONOCYTES % (AUTO) 11.5 % (1.0-10.0); NEUTROPHILS % (AUTO) 56.4 % (45.0-75.0); PLATELET COUNT 176 K/UL (150-450); RED BLOOD COUNT 3.76 M/UL (4.20-5.40); RED CELL DISTRIBUTION WIDTH 12.5 % (11.6-14.8); WHITE BLOOD COUNT 4.2 K/UL (4.8-10.8)
[2019-02-19 06:48] LABS: ANION GAP 6 mmol/L (5-15); BLOOD UREA NITROGEN 4 mg/dL (7-18); CALCIUM 8.8 MG/DL (8.5-10.1); CARBON DIOXIDE 27 MMOL/L (21-32); CHLORIDE 104 MMOL/L (98-107); CREATININE 0.8 MG/DL (0.55-1.30); PHOSPHORUS 3.4 MG/DL (2.5-4.9); POTASSIUM 4.2 MMOL/L (3.5-5.1); SODIUM 137 MMOL/L (136-145)
--- NOTE | 2019-02-19 07:04 | NUR ---
HAND-OFF: Report given to ALINE Shaffer.
--- NOTE | 2019-02-19 07:16 | NUR ---
NURSE NOTES: AWAKE/ALERT. NO C/O PAIN. IN NO APPARENT DISTRESS.
[2019-02-19 08:00] VITALS: BP 110/60
[2019-02-19] MEDS: Lisinopril 10mg tab ORAL SCH (08:18)
[2019-02-19] MEDS: Docusate 100mg cap ORAL SCH ×2 (08:18→17:26)
[2019-02-19 12:00] VITALS: BP 129/63
--- NOTE | 2019-02-19 13:28 | NUR ---
*-* INSURANCE *-* UPDATED CLINICALS AND REVIEWS HAVE BEEN FAXED TO: [facility] IPA: DON P: [phone] F: [phone] (FAX ALL CLINICLAS)
--- NOTE | 2019-02-19 15:25 | NUR ---
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 HYPONATREMIA . ABD PAIN VS: BP 134/74, P 18, T 98.4, RR 18, SpO2 97 IS:ZOFRAN 4mg IVP ZESTRIL 10mg PROTONIX 40mg NaCl x1 IV PLAN: On NS at [facility] MED/SURG STATUS
[2019-02-19 16:00] VITALS: BP 110/58
--- NOTE | 2019-02-19 18:14 | Nephrology Progress Note ---
Assessment/Plan Problem List: (1) History of hypertension (2) Altered mental status (3) HTN (hypertension) (4) Polydipsia (5) Nausea & vomiting (6) Hyponatremia (7) Abdominal pain Plan #hyponatremia, likely hypovoluemic given relatively low urine sodium- improving - also thiazide induced - continue NS at 75cc for one more day - advance diet as tolerated - hold HCTZ - ok to resume lisinopril 10mg with holding parameters - monitor I&Os - monitor electrolytes #HTN- borderline bute stable - continue NS at 75cc for one more day - hold HCTZ - ok to resume lisinopril 10mg with holding parameters #abdominal pain, n/v - antiemetics - IVF - advance diet as tolerated - CT abdomen benign Subjective Subjective abdominal pain better tolerating PO sodium normalized Objective Objective Last 24 Hour Vital Signs Date Time Temp Pulse Resp B/P (MAP) Pulse Ox O2 Delivery O2 Flow Rate FiO2 02/19/19 16:00 98.0 65 17 110/58 (75) 99 02/19/19 12:00 98.4 66 16 129/63 (85) 98 02/19/19 08:50 Room Air 02/19/19 08:18 110/60 02/19/19 08:00 98.4 64 16 110/60 (77) 98 02/19/19 04:00 97.6 67 18 134/74 (94) 98 02/19/19 00:00 97.6 65 18 123/61 (81) 97 02/18/19 21:00 Room Air 02/18/19 20:00 97.5 59 18 125/68 (87) 98 Intake and Output 02/18/19 02/19/19 19:00 07:00 Intake Total 1200 ml 862.5 ml Balance 1200 ml 862.5 ml Intake Oral 300 ml IV Total 900 ml 862.5 ml # Voids 4 7 # Bowel Movements 2 Laboratory Tests 02/19/19 05:35: White Blood Count 4.2L, Red Blood Count 3.76L, Hemoglobin 10.5L, Hematocrit 32.3L, Mean Corpuscular Volume 86, Mean Corpuscular Hemoglobin 28.0, Mean Corpuscular Hemoglobin Concent 32.5, Red Cell Distribution Width 12.5, Platelet Count 176, Mean Platelet Volume 6.8, Neutrophils (%) (Auto) 56.4, Lymphocytes (% ) (Auto) 25.4, Monocytes (%) (Auto) 11.5H, Eosinophils (%) (Auto) 5.2H, Basophils (%) (Auto) 1.5, Sodium Level 137, Potassium Level 4.2, Chloride Level 104, Carbon Dioxide Level 27, Anion Gap 6, Blood Urea Nitrogen 4L, Creatinine 0.8, Estimat Glomerular Filtration Rate , Glucose Level 92, Calcium Level 8.8, Ionized Calcium (Measured) 1.16, Phosphorus Level 3.4, Magnesium Level 1.9 Height (Feet): 5 Height (Inches): 1.00 Weight (Pounds): 127 Jose Lopez M.D. Feb 19, 2019 18:14
--- NOTE | 2019-02-19 19:00 | NUR ---
NURSE NOTES: SHRUTI IN BED. IN NO APPARENT DISTRESS.
--- NOTE | 2019-02-19 19:10 | NUR ---
HAND-OFF: Report given to Autumn BA RN.
--- NOTE | 2019-02-19 19:15 | NUR ---
NURSE NOTES: Report taken from ALINE Shaffer. Patient is awake and in bed, family at bedside, Haitian speaking. A&Ox4. No signs of distress on room air. No complaints of pain, n/v. IV site on Lt FA infiltrated and removed, will assess and place new IV line. Patient able to ambulate. Some minor bruising from IV and blood draws, no further skin issues. Bed in lowest position, call light within reach.
--- NOTE | 2019-02-19 19:58 | General Progress Note ---
Assessment/Plan Assessment/Plan: Assessment/Plan: # Hypovolemic Hyponatremia from vomiting - improved - IVF w NS - Renal consult appreciated - ctm bmp # Abd pain /N/V from gastroenteritis - CT scan negative - normal wbc, no fevers - IVF - supportive care - no indication for abx - zofran prn - pain control - changed liquid diet to soft, to advance as tolerated # HTN - cont home med: lisinopril 10 mg po daily # GERD - cont omeprazole 40 mg po daily #Dispo -likely DC in AM with HH FULL CODE Subjective Date patient seen: Feb 19, 2019 ROS Limited/Unobtainable: No Allergies: Coded Allergies: No Known Allergies (Unverified , 01/03/17) Subjective Diet advanced, pt complaining of nausea and abdominal pain, however improved from prior. Has no other complaints Objective Last 24 Hour Vital Signs Date Time Temp Pulse Resp B/P (MAP) Pulse Ox O2 Delivery O2 Flow Rate FiO2 02/19/19 16:00 98.0 65 17 110/58 (75) 99 02/19/19 12:00 98.4 66 16 129/63 (85) 98 02/19/19 08:50 Room Air 02/19/19 08:18 110/60 02/19/19 08:00 98.4 64 16 110/60 (77) 98 02/19/19 04:00 97.6 67 18 134/74 (94) 98 02/19/19 00:00 97.6 65 18 123/61 (81) 97 02/18/19 21:00 Room Air 02/18/19 20:00 97.5 59 18 125/68 (87) 98 Intake and Output 02/18/19 02/19/19 19:00 07:00 Intake Total 1200 ml 862.5 ml Balance 1200 ml 862.5 ml Intake Oral 300 ml IV Total 900 ml 862.5 ml # Voids 4 7 # Bowel Movements 2 Laboratory Tests 02/19/19 05:35: White Blood Count 4.2L, Red Blood Count 3.76L, Hemoglobin 10.5L, Hematocrit 32.3L, Mean Corpuscular Volume 86, Mean Corpuscular Hemoglobin 28.0, Mean Corpuscular Hemoglobin Concent 32.5, Red Cell Distribution Width 12.5, Platelet Count 176, Mean Platelet Volume 6.8, Neutrophils (%) (Auto) 56.4, Lymphocytes (% ) (Auto) 25.4, Monocytes (%) (Auto) 11.5H, Eosinophils (%) (Auto) 5.2H, Basophils (%) (Auto) 1.5, Sodium Level 137, Potassium Level 4.2, Chloride Level 104, Carbon Dioxide Level 27, Anion Gap 6, Blood Urea Nitrogen 4L, Creatinine 0.8, Estimat Glomerular Filtration Rate , Glucose Level 92, Calcium Level 8.8, Ionized Calcium (Measured) 1.16, Phosphorus Level 3.4, Magnesium Level 1.9 Height (Feet): 5 Height (Inches): 1.00 Weight (Pounds): 127 Objective General Appearance: WD/WN, no apparent distress, alert Neck: non-tender, normal alignment, supple Cardiovascular: normal rate, regular rhythm, no JVD Respiratory/Chest: lungs clear, normal breath sounds, no respiratory distress, no accessory muscle use Abdomen: non tender, soft, no organomegaly, no mass Extremities: normal range of motion Edema: no edema noted Arm (L), no edema noted Arm (R), no edema noted Leg (L), no edema noted Leg (R), no edema noted Pedal (L), no edema noted Pedal (R), no edema noted Generalized 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
[2019-02-19 20:00] VITALS: BP 111/51
--- NOTE | 2019-02-19 20:00 | NUR ---
NURSE NOTES: New IV site placed, Right, FA 22G, c/d/i and patent, running NS at 75mls/hr.
[2019-02-19] MEDS ORDERED: LISINOPRIL10 MG ORAL (20:53)
[2019-02-20] VITALS: BP 122/66
[2019-02-20 04:00] VITALS: BP 110/57
--- NOTE | 2019-02-20 07:05 | NUR ---
NURSE NOTES: Received report from Roque MIRELES. AOX4 and pt awake, alert and lying in bed . No c/o pain. No acute distress noted. IV in RAC 22G running with NS @75cc/hr intact and asymptomatic. Bed in lowest position and locked. Call light within easy reach. Will continue to plan of care.
[2019-02-20 07:10] LABS: BASOPHILS % (AUTO) 1.1 % (0.0-2.0); EOSINOPHILS % (AUTO) 4.2 % (0.0-3.0); HEMATOCRIT 32.4 % (37.0-47.0); HEMOGLOBIN 10.7 G/DL (12.0-16.0); LYMPHOCYTES % (AUTO) 27.9 % (20.0-45.0); MEAN CORPUSCULAR VOLUME 86 FL (80-99); MONOCYTES % (AUTO) 9.8 % (1.0-10.0); PLATELET COUNT 182 K/UL (150-450); RED BLOOD COUNT 3.77 M/UL (4.20-5.40); RED CELL DISTRIBUTION WIDTH 12.8 % (11.6-14.8); WHITE BLOOD COUNT 5.2 K/UL (4.8-10.8)
[2019-02-20 07:18] LABS: ANION GAP 7 mmol/L (5-15); BLOOD UREA NITROGEN 10 mg/dL (7-18); CARBON DIOXIDE 26 MMOL/L (21-32); CHLORIDE 105 MMOL/L (98-107); CREATININE 0.9 MG/DL (0.55-1.30); PHOSPHORUS 3.6 MG/DL (2.5-4.9); SODIUM 138 MMOL/L (136-145)
--- NOTE | 2019-02-20 07:24 | NUR ---
HAND-OFF: Report given to Min, RN. Patient is awake and VS stable.
[2019-02-20 07:52] VITALS: BP 129/61
[2019-02-20] MEDS: Docusate 100mg cap ORAL SCH (08:22)
[2019-02-20] MEDS: Lisinopril 10mg tab ORAL SCH (08:22)
--- NOTE | 2019-02-20 10:27 | NUR ---
*-* INSURANCE *-* UPDATED CLINICALS AND REVIEWS HAVE BEEN FAXED TO: [facility] IPA: DON P: [phone] F: [phone] (FAX ALL CLINICLAS)
[2019-02-20 11:39] VITALS: BP 129/62
--- NOTE | 2019-02-20 12:14 | NUR ---
PHARMACY SALESPERSONBEHAVIORAL INSTRUCTOR FAXED REFERRAL TO [facility] WILL FOLLOW UP.
--- NOTE | 2019-02-20 12:33 | Nephrology Progress Note ---
Assessment/Plan Problem List: (1) History of hypertension (2) Altered mental status (3) HTN (hypertension) (4) Polydipsia (5) Nausea & vomiting (6) Hyponatremia (7) Abdominal pain Plan #hyponatremia, likely hypovoluemic given relatively low urine sodium- improving - also thiazide induced - DC IVF - advance diet as tolerated - hold HCTZ - ok to resume lisinopril 10mg with holding parameters - monitor I&Os - monitor electrolytes #HTN- borderline bute stable - hold IVF - hold HCTZ- would hold on DC - ok to resume lisinopril 10mg with holding parameters - f/u with PCP #abdominal pain, n/v - antiemetics - IVF - advance diet as tolerated - CT abdomen benign Subjective Subjective abdominal pain better tolerating PO sodium normalized DC planning today Objective Objective Last 24 Hour Vital Signs Date Time Temp Pulse Resp B/P (MAP) Pulse Ox O2 Delivery O2 Flow Rate FiO2 02/20/19 11:39 98.4 66 20 129/62 (84) 97 02/20/19 09:00 Room Air 02/20/19 08:22 129/61 02/20/19 07:52 98.1 64 17 129/61 (83) 96 02/20/19 04:00 98.4 62 20 110/57 (74) 96 02/20/19 00:00 97.7 69 18 122/66 (84) 95 02/19/19 21:00 Room Air 02/19/19 20:00 98.2 75 18 111/51 (71) 97 02/19/19 16:00 98.0 65 17 110/58 (75) 99 Intake and Output 02/19/19 02/20/19 19:00 07:00 Intake Total 900 ml 2600 ml Balance 900 ml 2600 ml Intake Oral 2600 ml IV Total 900 ml # Voids 6 # Bowel Movements 1 Laboratory Tests 02/20/19 05:20: White Blood Count 5.2, Red Blood Count 3.77L, Hemoglobin 10.7L, Hematocrit 32.4L , Mean Corpuscular Volume 86, Mean Corpuscular Hemoglobin 28.4, Mean Corpuscular Hemoglobin Concent 33.1, Red Cell Distribution Width 12.8, Platelet Count 182, Mean Platelet Volume 6.9, Neutrophils (%) (Auto) 57.0, Lymphocytes (% ) (Auto) 27.9, Monocytes (%) (Auto) 9.8, Eosinophils (%) (Auto) 4.2H, Basophils (%) (Auto) 1.1, Sodium Level 138, Potassium Level 4.0, Chloride Level 105, Carbon Dioxide Level 26, Anion Gap 7, Blood Urea Nitrogen 10, Creatinine 0.9, Estimat Glomerular Filtration Rate , Glucose Level 92, Calcium Level 9.0, Ionized Calcium (Measured) 1.10, Phosphorus Level 3.6, Magnesium Level 1.9 Height (Feet): 5 Height (Inches): 1.00 Weight (Pounds): 127 Jose Lopez M.D. Feb 20, 2019 12:33
--- NOTE | 2019-02-20 12:50 | NUR ---
NURSE NOTES: susanna Ko, case folder of pt's discharge and need home health service upon discharge.
--- NOTE | 2019-02-20 13:40 | NUR ---
Discharge: Patient is being discharged from medical care. Awake, alert and oriented x4. After care instructions, including referral to community resources were given. Patient verbalized understanding of After care instructions; at this time patient does not request medications, equipment or placement. Patient signed patient consent in the medical record for patient destination upon discharge. All medical devices such as IV and ID band were removed. patient's son came and picked up the patient. Patient ambulated out with all personal belongings with her son with steady gait and RN assisted the pt to the lobby.
--- NOTE | 2019-02-25 08:18 | Discharge Summary ---
Discharge Summary Discharge Summary _ DATE OF ADMISSION: 02/16/2019 DATE OF DISCHARGE: 02/20/2019 DISCHARGED BY: REASON FOR ADMISSION: 74 years old female with past medical history of GERD and hypertension presented with several day of emesis and left lower quadrant abdominal pain. Patient denied vomiting blood. She denied diarrhea, she denied fever chills. On admission no leukocytosis, sodium 129. Patient afebrile. CT scan from ED showed diverticulosis without diverticulitis, no acute process otherwise. Cholelithiasis. Cardiomegaly. Patient was admitted with IV fluids for observation, however patient was unable to tolerate liquids and therefore required admission for further management. CONSULTANTS: software integrator Dr Lopez [facility]: Patient started on the IV fluids. [employer] consulted for hyponatremia. Pain management was addressed Supportive care provided. Diet was advanced as tolerated. No indication for antibiotic. Antiemetic provided as needed. Home medication continued. Blood pressure was managed with lisinopril. GI prophylaxis with PPI /omeprazole continued for GERD. Per software integrator, patient had likely hypovolemic hyponatremia , also possibly thiazide induced. Urine studies were done. Hydrochlorothiazide was hold. Intake and output and electrolytes were closely monitored. With IV fluids sodium up to 138. Diet was advanced as tolerated. Patient was able to tolerate diet. Abdominal pain with nausea and vomiting were likely due to gastroenterit Symptoms resolved. Patient clinically stabilized and was ready for discharge home with home health services t FINAL DIAGNOSES: Hypovolemic hyponatremia secondary to vomiting -resolved Abdominal pain with nausea , vomiting , likely due to gastroenteritis Hypertension GERD DISCHARGE MEDICATIONS: See Medication Reconciliation list. DISCHARGE INSTRUCTIONS: Patient was discharged home with home health services. Follow up with primary care provider in one week. I have been assigned to dictate discharge summary for this account. I was not involved in the patient's management. Shira Jacobo NP Feb 25, 2019 08:18
== END 2019-02-20 13:41 | disposition home health service (06) | DRG 641 ==
LOC: EMR 20:51 → 3E 21:46 → OBSVTOIN 21:46 → EDBEDREQ 22:35
DX: E87.1 Hypo-osmolality and hyponatremia (principal); T50.2X5A Adverse effect of carbonic-anhydrase inhibitors, benzothiadiazides and other diuretics, initial encounter; K52.9 Noninfective gastroenteritis and colitis, unspecified; K21.9 Gastro-esophageal reflux disease without esophagitis; I10 Essential (primary) hypertension; R63.1 Polydipsia; E86.1 Hypovolemia
CPT/HCPCS: 36415; 71045; 74177; 80048; 80053; 81003; 82150; 82330; 82962; 83690; 83735; 83935; 84100; 84133; 84300; 84484; 85025; 85610; 85730; 86850; 86900; 86901; 93005; 96360; 96361; 96365; 96366; 96374; 96375; 96376; 99285; J2405

== ENCOUNTER 2019-03-03 23:49 | Inpatient (IN) | payer MEDICARE, MEDICAID ==
[~2019-03-03] VITALS: Ht 165.1 cm; Wt 70.3 kg
[2019-03-04] VITALS (8 sets, daily range): BP systolic 103–125; BP diastolic 51–81
--- NOTE | 2019-03-04 | NUR ---
ED Nurse Note: Julienne walked into ED accompanied by son c/o nausea and vomiting for the past 2 weeks. patient is actively vomiting, complains of no pain, just states that she has numbness on her chin. patient's field of vision is intact with no deficiencies. patient is alert and oriented x4. IV started on left hand ac 20 gauge
--- NOTE | 2019-03-04 00:10 | Emergency Room Report ---
History of Present Illness General Chief Complaint: Nausea, Vomiting, and Diarrhea Source: Patient Present Illness HPI Is a 74-year-old female with a history of gastritis and hypertension. She presents with chief complaint of epigastric pain and nausea and vomiting. This is a chronic problem. She was here 2 weeks ago for the same thing. She came in today because she felt both her arms are numb and loopy. No fever chills. Worse with eating. No fever chills but no chest pain. denies any other complaint. No diarrhea. Allergies: Coded Allergies: No Known Allergies (Unverified , 01/03/17) Patient History Past Medical History: see triage record, old chart reviewed, HTN, GERD Past Surgical History: other Pertinent Family History: none Social History: Denies: smoking Last Menstrual Period: na Now: No Immunizations: other Reviewed Nursing Documentation: PMH: Agreed; PSxH: Agreed Nursing Documentation-PMH Hx Cardiac Problems: Yes Hx Hypertension: Yes Hx Cancer: No Hx Gastrointestinal Problems: Yes - GERD Hx Neurological Problems: No Review of Systems Eye: Denies: eye pain, blurred vision ENT: Denies: ear pain, nose congestion, throat swelling Respiratory: Denies: cough, shortness of breath Cardiovascular: Denies: chest pain, palpitations Gastrointestinal: Reports: abdominal pain, nausea, vomiting; Denies: diarrhea Musculoskeletal: Denies: back pain, joint pain Skin: Denies: rash Neurological: Denies: headache, numbness Endocrine: Denies: increased thirst, increased urine Hematologic/Lymphatic: Denies: easy bruising All Other Systems: negative except mentioned in HPI Physical Exam Vital Signs Date Time Temp Pulse Resp B/P (MAP) Pulse Ox O2 Delivery O2 Flow Rate FiO2 03/03/19 23:51 98.4 87 18 125/81 (96) 96 Room Air Vitals normal Sp02 EP Interpretation: reviewed, normal General Appearance: well appearing, no apparent distress, alert Head: normocephalic, atraumatic Eyes: bilateral eye PERRL, bilateral eye EOMI ENT: hearing grossly normal, normal pharynx Neck: full range of motion, supple, no meningismus Respiratory: chest non-tender, lungs clear, normal breath sounds Cardiovascular #1: regular rate, rhythm, no murmur Gastrointestinal: normal bowel sounds, non tender, no mass, no organomegaly, no bruit, non-distended Musculoskeletal: back normal, gait/station normal, normal range of motion Psychiatric: anxious Medical Decision Making Diagnostic Impression: Primary Impression: Hyponatremia Additional Impressions: Gastritis Qualified Codes: K29.00 - Acute gastritis without bleeding Anxiety ER Course Patient presents with epigastric pain with nausea and vomiting. No evidence of any obstruction. CT scan from diverticulosis without diverticulitis. She was very anxious and better after Ativan. No evidence of ACS, PE, dissection. Initial sodium was 116. After liter of IV fluid I repeated and it came up to 121. Unknown etiology. She presents with the same thing on last admission and hydrochlorothiazide was held. She had never follow-up with GI for endoscopy or colonoscopy per her son. Discuss the case with Dr. Hernandez who will admit for Dr. Wall group. EKG Diagnostic Results Rate: normal Rhythm: NSR ST Segments: no acute changes Rhythm Strip Diag. Results EP Interpretation: yes Rate: 82 Rhythm: NSR, no PVC's, no ectopy Last Vital Signs Date Time Temp Pulse Resp B/P (MAP) Pulse Ox O2 Delivery O2 Flow Rate FiO2 03/03/19 23:51 98.4 87 18 125/81 (96) 96 Room Air Status: improved Disposition: ADMITTED INPATIENT Condition: Serious Armando Beasley MD Mar 04, 2019 00:10
[2019-03-04] MEDS ORDERED: LORazepam Inj 2mg/ml 1ml IV ONE (00:15)
[2019-03-04 00:25] LABS: APPEARANCE,URINE CLEAR; BILIRUBIN, URINE NEGATIVE (NEGATIVE); COLOR,URINE PALE YELLOW; GLUCOSE, URINE (UA) NEGATIVE (NEGATIVE); KETONES,URINE 1+ (NEGATIVE); LEUKOCYTE ESTERASE ,URINE 1+ (NEGATIVE); NITRITE,URINE NEGATIVE (NEGATIVE); PH,URINE 8 (4.5-8.0); PROTEIN,URINE NEGATIVE (NEGATIVE); UROBILINOGEN,URINE NORMAL MG/DL (0.0-1.0)
[2019-03-04 00:34] LABS: BASOPHILS % (AUTO) 1.3 % (0.0-2.0); EOSINOPHILS % (AUTO) 0.4 % (0.0-3.0); HEMATOCRIT 36.8 % (37.0-47.0); HEMOGLOBIN 12.8 G/DL (12.0-16.0); LYMPHOCYTES % (AUTO) 22.9 % (20.0-45.0); MEAN CORPUSCULAR VOLUME 81 FL (80-99); MONOCYTES % (AUTO) 11.4 % (1.0-10.0); PLATELET COUNT 286 K/UL (150-450); RED BLOOD COUNT 4.52 M/UL (4.20-5.40); RED CELL DISTRIBUTION WIDTH 11.9 % (11.6-14.8); WHITE BLOOD COUNT 5.8 K/UL (4.8-10.8)
--- NOTE | 2019-03-04 00:45 | NUR ---
ED Nurse Note: Sodium of 121. Dr. Beasley notified and aware
[2019-03-04 00:53] LABS: ALANINE AMINOTRANSFERASE 21 U/L (12-78); ALBUMIN 4.1 G/DL (3.4-5.0); ALBUMIN/GLOBULIN RATIO 1.1 (1.0-2.7); ALKALINE PHOSPHATASE 91 U/L (46-116); ANION GAP 10 mmol/L (5-15); ASPARTATE AMINO TRANSFERASE 23 U/L (15-37); BILIRUBIN,TOTAL 1.1 MG/DL (0.2-1.0); BLOOD UREA NITROGEN 7 mg/dL (7-18); CALCIUM 9.7 MG/DL (8.5-10.1); CARBON DIOXIDE 23 MMOL/L (21-32); CHLORIDE 83 MMOL/L (98-107); CREATININE 0.8 MG/DL (0.55-1.30); POTASSIUM 3.9 MMOL/L (3.5-5.1)
[2019-03-04 00:56] LABS: SODIUM 116 MMOL/L (136-145)
[2019-03-04 00:57] LABS: BILIRUBIN,DIRECT 0.3 MG/DL (0.0-0.3)
[2019-03-04 01:26] LABS: ANION GAP 8 mmol/L (5-15); BLOOD UREA NITROGEN 6 mg/dL (7-18); CALCIUM 8.4 MG/DL (8.5-10.1); CARBON DIOXIDE 24 MMOL/L (21-32); CHLORIDE 89 MMOL/L (98-107); CREATININE 0.7 MG/DL (0.55-1.30); POTASSIUM 3.7 MMOL/L (3.5-5.1); SODIUM 121 MMOL/L (136-145)
[2019-03-04] MEDS ORDERED: CIPROFLOXACIN500 M2 ORAL (01:28)
[2019-03-04] MEDS ORDERED: OYSCO 500+D TA1 EAC1 PO (01:28)
[2019-03-04] MEDS ORDERED: ACETAMINOPHEN-1 EAC1 ORAL (01:28)
--- NOTE | 2019-03-04 02:15 | NUR ---
TRANSFER TO FLOOR: Patient transferred to Telemetry as ordered, per . Report given to to Meaghan Conte
--- NOTE | 2019-03-04 02:40 | NUR ---
NURSE NOTES: Received pt from ALINE Hutson. Pt awake, alert, and talkative (yakut speaking only). Son at bedside. No skin issues. lung sounds clear. Pts gait very unsteady, 2-person assist. VSS. Pt reports no complaints of N/V or pain at this time. Will call MD and will continue to monitor.
--- NOTE | 2019-03-04 03:37 | NUR ---
NURSE NOTES: Called and left a message for Dr. Rivera regarding admission orders. Awaiting call back.
--- NOTE | 2019-03-04 05:33 | NUR ---
NURSE NOTES: Called and left a message with Dr. Ambriz for admission orders for the second time. Awaiting call back.
--- NOTE | 2019-03-04 05:43 | NUR ---
NURSE NOTES: Called and left a message with Dr. Hernandez regarding admission orders. Awaiting call back.
--- NOTE | 2019-03-04 07:08 | NUR ---
NURSE NOTES: Dr. Hernandez called with the following admission orders: - Hold home meds - zofran q4 4mg iv prn nausea - scd - cbc, bmp stat - reg diet (soft ez chew) - call margie with lab results (Na shouldnt change more than 10 per 24 hour period) Will input orders and will continue to monitor
[2019-03-04 07:22] LABS: BASOPHILS % (AUTO) 1.2 % (0.0-2.0); EOSINOPHILS % (AUTO) 1.8 % (0.0-3.0); HEMATOCRIT 33.1 % (37.0-47.0); HEMOGLOBIN 11.1 G/DL (12.0-16.0); LYMPHOCYTES % (AUTO) 31.3 % (20.0-45.0); MEAN CORPUSCULAR VOLUME 83 FL (80-99); MONOCYTES % (AUTO) 13.1 % (1.0-10.0); NEUTROPHILS % (AUTO) 52.6 % (45.0-75.0); PLATELET COUNT 237 K/UL (150-450); RED BLOOD COUNT 3.99 M/UL (4.20-5.40); RED CELL DISTRIBUTION WIDTH 12.6 % (11.6-14.8); WHITE BLOOD COUNT 4.1 K/UL (4.8-10.8)
[2019-03-04 07:34] LABS: ANION GAP 6 mmol/L (5-15); BLOOD UREA NITROGEN 6 mg/dL (7-18); CALCIUM 8.5 MG/DL (8.5-10.1); CARBON DIOXIDE 26 MMOL/L (21-32); CHLORIDE 100 MMOL/L (98-107); CREATININE 0.8 MG/DL (0.55-1.30); POTASSIUM 4.2 MMOL/L (3.5-5.1); SODIUM 132 MMOL/L (136-145)
--- NOTE | 2019-03-04 07:34 | NUR ---
HAND-OFF: Report given to ALINE Gonsales. Pt stable.
[2019-03-04 07:39] LABS: ALANINE AMINOTRANSFERASE 17 U/L (12-78); ALBUMIN 3.2 G/DL (3.4-5.0); ALKALINE PHOSPHATASE 72 U/L (46-116); ASPARTATE AMINO TRANSFERASE 18 U/L (15-37); BILIRUBIN,TOTAL 0.8 MG/DL (0.2-1.0)
--- NOTE | 2019-03-04 07:39 | NUR ---
NURSE NOTES: Report received from ALINE Smith. Patient AOx4. IN RA. Denies any pain or SOB. L AC 20 IV patent, SL. Bed on lowest position, side rails upx2, brakes engaged. Call light within easy reach.
--- NOTE | 2019-03-04 08:12 | NUR ---
NURSE NOTES: Called and left a message to Dr. Vidales's office regarding lab results. Waiting for a call back.
--- NOTE | 2019-03-04 08:24 | History and Physical ---
History of Present Illness General Date patient seen: Mar 04, 2019 Time patient seen: 13:00 Reason for Hospitalization: Nausea, Vomiting, and Diarrhea Present Illness HPI 74 yo F PMH of GERD and HTN presents for nausea and vomiting. Patient was recently admitted for the same symptoms and had negative CT scan, improved with IV fluids and sent home with diagnosis of gastroenteritis. Patient states she again cannot tolerate any food or liquid. She admits to a burning pain in her stomach. She admits to feeling weak and tired. Denies hematemesis, sick contacts , or food allergy. Discussed with son at bedside who states patient lives at home with without social issues. Allergies: Coded Allergies: No Known Allergies (Unverified , 01/03/17) Medication History Scheduled Ciprofloxacin Hcl* (Ciprofloxacin Hcl*), 500 MG ORAL EVERY 12 HOURS, (Reported) Lisinopril* (Lisinopril*), 10 MG ORAL BID, (Reported) Omeprazole (Omeprazole), 20 MG ORAL DAILY, (Reported) Scheduled PRN Acetaminophen With Codeine (T#3) (Tylenol #3 Tab*), 1 TAB ORAL Q4H PRN for For Pain, (Reported) Miscellaneous Medications Calcium Carbonate/Vitamin D3 (Oysco 500+D Tablet), 1 EACH PO, (Reported) Discontinued Medications Calcium Carbonate/Vitamin D3 (Oyster Shell Calcium +D Tablet), 1 EACH PO DAILY, (Reported) Discontinued Reason: Pt stopped taking med Patient History History Provided By: Patient, Family Member Healthcare decision maker son Resuscitation status Full Code Advanced Directive on File Social History Social History: (1) Lives in single-family home Review of Systems All Other Systems: negative except mentioned in HPI Physical Exam General Appearance: WD/WN, no apparent distress, alert HEENT: normocephalic, atraumatic, anicteric Neck: non-tender, normal alignment, supple Respiratory/Chest: chest wall non-tender, lungs clear, normal breath sounds, no respiratory distress Cardiovascular/Chest: normal peripheral pulses, normal rate, regular rhythm, no JVD Abdomen: soft, no organomegaly, no mass Extremities: normal range of motion, non-tender, normal inspection Skin Exam: normal pigmentation, warm/dry Neurologic: cloud solutions architect II-XII grossly normal, oriented x 3 Musculoskeletal: normal muscle bulk Last 24 Hour Vital Signs Date Time Temp Pulse Resp B/P (MAP) Pulse Ox O2 Delivery O2 Flow Rate FiO2 8/6/19 04:00 76 03/04/19 04:00 97.1 75 18 116/64 (81) 98 03/04/19 03:06 Room Air 03/04/19 02:59 97.1 75 18 116/64 (81) 98 03/04/19 02:25 98.2 79 19 110/50 99 Room Air 03/04/19 02:17 98.5 82 19 112/51 99 Room Air 03/04/19 00:00 98.4 83 18 125/81 96 Room Air 03/03/19 23:51 98.4 87 18 125/81 (96) 96 Room Air Intake and Output 03/03/19 03/04/19 19:00 07:00 Intake Total 2000 ml Balance 2000 ml Intake IV Total 2000 ml # Voids 6 # Bowel Movements 1 Laboratory Tests Test 03/04/19 00:00 03/04/19 01:00 03/04/19 07:15 White Blood Count 5.8 K/UL (4.8-10.8) 4.1 K/UL (4.8-10.8) L Red Blood Count 4.52 M/UL (4.20-5.40) 3.99 M/UL (4.20-5.40) L Hemoglobin 12.8 G/DL (12.0-16.0) 11.1 G/DL (12.0-16.0) L Hematocrit 36.8 % (37.0-47.0) L 33.1 % (37.0-47.0) L Mean Corpuscular Volume 81 FL (80-99) 83 FL (80-99) Mean Corpuscular Hemoglobin 28.4 PG (27.0-31.0) 27.9 PG (27.0-31.0) Mean Corpuscular Hemoglobin Concent 34.9 G/DL (32.0-36.0) 33.6 G/DL (32.0-36.0) Red Cell Distribution Width 11.9 % (11.6-14.8) 12.6 % (11.6-14.8) Platelet Count 286 K/UL (150-450) 237 K/UL (150-450) Mean Platelet Volume 6.5 FL (6.5-10.1) 5.6 FL (6.5-10.1) L Neutrophils (%) (Auto) 64.0 % (45.0-75.0) 52.6 % (45.0-75.0) Lymphocytes (%) (Auto) 22.9 % (20.0-45.0) 31.3 % (20.0-45.0) Monocytes (%) (Auto) 11.4 % (1.0-10.0) H 13.1 % (1.0-10.0) H Eosinophils (%) (Auto) 0.4 % (0.0-3.0) 1.8 % (0.0-3.0) Basophils (%) (Auto) 1.3 % (0.0-2.0) 1.2 % (0.0-2.0) Urine Color Pale yellow Urine Appearance Clear Urine pH 8 (4.5-8.0) Urine Specific [place] 1.010 (1.005-1.035) Urine Protein Negative (NEGATIVE) Urine Glucose (UA) Negative (NEGATIVE) Urine Ketones 1+ (NEGATIVE) H Urine Blood Negative (NEGATIVE) Urine Nitrite Negative (NEGATIVE) Urine Bilirubin Negative (NEGATIVE) Urine Urobilinogen Normal MG/DL (0.0-1.0) Urine Leukocyte Esterase 1+ (NEGATIVE) H Urine RBC 0-2 /HPF (0 - 2) Urine WBC 0-2 /HPF (0 - 2) Urine Squamous Epithelial Cells Few /LPF (NONE/OCC) Urine Bacteria Few /HPF (NONE) Sodium Level 116 MMOL/L (136-145) *L 121 MMOL/L (136-145) L 132 MMOL/L (136-145) #L Potassium Level 3.9 MMOL/L (3.5-5.1) 3.7 MMOL/L (3.5-5.1) 4.2 MMOL/L (3.5-5.1) Chloride Level 83 MMOL/L (98-107) L 89 MMOL/L (98-107) L 100 MMOL/L (98-107) Carbon Dioxide Level 23 MMOL/L (21-32) 24 MMOL/L (21-32) 26 MMOL/L (21-32) Anion Gap 10 mmol/L (5-15) 8 mmol/L (5-15) 6 mmol/L (5-15) Blood Urea Nitrogen 7 mg/dL (7-18) 6 mg/dL (7-18) L 6 mg/dL (7-18) L Creatinine 0.8 MG/DL (0.55-1.30) 0.7 MG/DL (0.55-1.30) 0.8 MG/DL (0.55-1.30) Estimat Glomerular Filtration Rate mL/min (>60) mL/min (>60) mL/min (>60) Glucose Level 107 MG/DL (74-106) H 105 MG/DL (74-106) 93 MG/DL (74-106) Calcium Level 9.7 MG/DL (8.5-10.1) 8.4 MG/DL (8.5-10.1) L 8.5 MG/DL (8.5-10.1) Total Bilirubin 1.1 MG/DL (0.2-1.0) H 0.8 MG/DL (0.2-1.0) Direct Bilirubin 0.3 MG/DL (0.0-0.3) Aspartate Amino Transf (AST/SGOT) 23 U/L (15-37) 18 U/L (15-37) Alanine Aminotransferase (ALT/SGPT) 21 U/L (12-78) 17 U/L (12-78) Alkaline Phosphatase 91 U/L (46-116) 72 U/L (46-116) Troponin I 0.006 ng/mL (0.000-0.056) Total Protein 8.0 G/DL (6.4-8.2) 6.4 G/DL (6.4-8.2) Albumin 4.1 G/DL (3.4-5.0) 3.2 G/DL (3.4-5.0) L Globulin 3.9 g/dL 3.2 g/dL Albumin/Globulin Ratio 1.1 (1.0-2.7) 1.0 (1.0-2.7) Lipase 225 U/L (73-393) Height (Feet): 5 Height (Inches): 2.00 Weight (Pounds): 155 Medications Current Medications Medications (Trade) Dose Ordered Sig/Margot Route PRN Reason Start Time Stop Time Status Last Admin Dose Admin Ondansetron HCl (Zofran) 4 mg Q4HR PRN IVP Nausea & Vomiting 03/04/19 07:15 04/03/19 07:14 Sodium Chloride 1,000 ml @ 50 mls/hr Q20H IV 03/04/19 08:15 04/03/19 08:14 UNV Assessment/Plan Diagnosis [place] I: Internal Medicine Hospitalist Progress Note if after normal hours: 6p-8a please call [phone] 74 yo female w PMH of HTN and GERD, who presents for nausea and vomiting, with hyponatremia found on labs. # Hyponatremia, hypovolemic from n/v - ivf: ns @ 50; to be changed per nephrology reqs - correct 2 units per hour - q4h bmp - nephrology consult - XR abd - no thiazide # Abd pain # Nausea vomiting - CT a/p last visit showed hernia - GI consult gor EGD # HTN - normotensive, hold bp meds # GERD - ppi - pepcid prn # Full code - discussed w patient and son at bedside 17 minutes Leonela Mcmahon DO Mar 04, 2019 08:24
--- NOTE | 2019-03-04 09:51 | Consultation ---
History of Present Illness General Chief Complaint: Nausea, Vomiting, and Diarrhea Present Illness HPI 74 yo F PMH of GERD and HTN presents for nausea and vomiting. Patient was recently admitted for the same symptoms and had negative CT scan, improved with IV fluids and sent home with diagnosis of gastroenteritis. Patient states she again cannot tolerate any food or liquid. She admits to a burning pain in her stomach. She admits to feeling weak and tired. Denies hematemesis, sick contacts , or food allergy Sodium on presentation 116 s/p 2L NS improved to 121 then 132 this morning IVF changed d5 1/2 NS Allergies: Coded Allergies: No Known Allergies (Unverified , 01/03/17) Medication History Scheduled Ciprofloxacin Hcl* (Ciprofloxacin Hcl*), 500 MG ORAL EVERY 12 HOURS, (Reported) Lisinopril* (Lisinopril*), 10 MG ORAL BID, (Reported) Omeprazole (Omeprazole), 20 MG ORAL DAILY, (Reported) Scheduled PRN Acetaminophen With Codeine (T#3) (Tylenol #3 Tab*), 1 TAB ORAL Q4H PRN for For Pain, (Reported) Miscellaneous Medications Calcium Carbonate/Vitamin D3 (Oysco 500+D Tablet), 1 EACH PO, (Reported) Discontinued Medications Calcium Carbonate/Vitamin D3 (Oyster Shell Calcium +D Tablet), 1 EACH PO DAILY, (Reported) Discontinued Reason: Pt stopped taking med Patient History Healthcare decision maker son Resuscitation status Full Code Advanced Directive on File Review of Systems Respiratory: Reports: shortness of breath Cardiovascular: Reports: chest pain Gastrointestinal: Reports: abdominal pain, diarrhea, nausea, vomiting Musculoskeletal: Reports: back pain Physical Exam General Appearance: WD/WN, no apparent distress HEENT: normocephalic, atraumatic Neck: non-tender, supple Respiratory/Chest: expiratory wheezing Cardiovascular/Chest: normal rate, regular rhythm Abdomen: normal bowel sounds, non tender, soft, hypoactive bowel sounds Extremities: non-tender, normal inspection Neurologic: alert, oriented x 3 Last 24 Hour Vital Signs Date Time Temp Pulse Resp B/P (MAP) Pulse Ox O2 Delivery O2 Flow Rate FiO2 03/04/19 04:00 76 03/04/19 04:00 97.1 75 18 116/64 (81) 98 03/04/19 03:06 Room Air 03/04/19 02:59 97.1 75 18 116/64 (81) 98 03/04/19 02:25 98.2 79 19 110/50 99 Room Air 03/04/19 02:17 98.5 82 19 112/51 99 Room Air 03/04/19 00:00 98.4 83 18 125/81 96 Room Air 03/03/19 23:51 98.4 87 18 125/81 (96) 96 Room Air Intake and Output 03/03/19 03/04/19 19:00 07:00 Intake Total 2000 ml Balance 2000 ml Intake IV Total 2000 ml # Voids 6 # Bowel Movements 1 Laboratory Tests Test 03/04/19 00:00 03/04/19 01:00 03/04/19 07:15 White Blood Count 5.8 K/UL (4.8-10.8) 4.1 K/UL (4.8-10.8) L Red Blood Count 4.52 M/UL (4.20-5.40) 3.99 M/UL (4.20-5.40) L Hemoglobin 12.8 G/DL (12.0-16.0) 11.1 G/DL (12.0-16.0) L Hematocrit 36.8 % (37.0-47.0) L 33.1 % (37.0-47.0) L Mean Corpuscular Volume 81 FL (80-99) 83 FL (80-99) Mean Corpuscular Hemoglobin 28.4 PG (27.0-31.0) 27.9 PG (27.0-31.0) Mean Corpuscular Hemoglobin Concent 34.9 G/DL (32.0-36.0) 33.6 G/DL (32.0-36.0) Red Cell Distribution Width 11.9 % (11.6-14.8) 12.6 % (11.6-14.8) Platelet Count 286 K/UL (150-450) 237 K/UL (150-450) Mean Platelet Volume 6.5 FL (6.5-10.1) 5.6 FL (6.5-10.1) L Neutrophils (%) (Auto) 64.0 % (45.0-75.0) 52.6 % (45.0-75.0) Lymphocytes (%) (Auto) 22.9 % (20.0-45.0) 31.3 % (20.0-45.0) Monocytes (%) (Auto) 11.4 % (1.0-10.0) H 13.1 % (1.0-10.0) H Eosinophils (%) (Auto) 0.4 % (0.0-3.0) 1.8 % (0.0-3.0) Basophils (%) (Auto) 1.3 % (0.0-2.0) 1.2 % (0.0-2.0) Urine Color Pale yellow Urine Appearance Clear Urine pH 8 (4.5-8.0) Urine Specific [place] 1.010 (1.005-1.035) Urine Protein Negative (NEGATIVE) Urine Glucose (UA) Negative (NEGATIVE) Urine Ketones 1+ (NEGATIVE) H Urine Blood Negative (NEGATIVE) Urine Nitrite Negative (NEGATIVE) Urine Bilirubin Negative (NEGATIVE) Urine Urobilinogen Normal MG/DL (0.0-1.0) Urine Leukocyte Esterase 1+ (NEGATIVE) H Urine RBC 0-2 /HPF (0 - 2) Urine WBC 0-2 /HPF (0 - 2) Urine Squamous Epithelial Cells Few /LPF (NONE/OCC) Urine Bacteria Few /HPF (NONE) Sodium Level 116 MMOL/L (136-145) *L 121 MMOL/L (136-145) L 132 MMOL/L (136-145) #L Potassium Level 3.9 MMOL/L (3.5-5.1) 3.7 MMOL/L (3.5-5.1) 4.2 MMOL/L (3.5-5.1) Chloride Level 83 MMOL/L (98-107) L 89 MMOL/L (98-107) L 100 MMOL/L (98-107) Carbon Dioxide Level 23 MMOL/L (21-32) 24 MMOL/L (21-32) 26 MMOL/L (21-32) Anion Gap 10 mmol/L (5-15) 8 mmol/L (5-15) 6 mmol/L (5-15) Blood Urea Nitrogen 7 mg/dL (7-18) 6 mg/dL (7-18) L 6 mg/dL (7-18) L Creatinine 0.8 MG/DL (0.55-1.30) 0.7 MG/DL (0.55-1.30) 0.8 MG/DL (0.55-1.30) Estimat Glomerular Filtration Rate mL/min (>60) mL/min (>60) mL/min (>60) Glucose Level 107 MG/DL (74-106) H 105 MG/DL (74-106) 93 MG/DL (74-106) Calcium Level 9.7 MG/DL (8.5-10.1) 8.4 MG/DL (8.5-10.1) L 8.5 MG/DL (8.5-10.1) Total Bilirubin 1.1 MG/DL (0.2-1.0) H 0.8 MG/DL (0.2-1.0) Direct Bilirubin 0.3 MG/DL (0.0-0.3) Aspartate Amino Transf (AST/SGOT) 23 U/L (15-37) 18 U/L (15-37) Alanine Aminotransferase (ALT/SGPT) 21 U/L (12-78) 17 U/L (12-78) Alkaline Phosphatase 91 U/L (46-116) 72 U/L (46-116) Troponin I 0.006 ng/mL (0.000-0.056) Total Protein 8.0 G/DL (6.4-8.2) 6.4 G/DL (6.4-8.2) Albumin 4.1 G/DL (3.4-5.0) 3.2 G/DL (3.4-5.0) L Globulin 3.9 g/dL 3.2 g/dL Albumin/Globulin Ratio 1.1 (1.0-2.7) 1.0 (1.0-2.7) Lipase 225 U/L (73-393) Thyroid Stimulating Hormone (TSH) 0.854 uiU/mL (0.358-3.740) Height (Feet): 5 Height (Inches): 2.00 Weight (Pounds): 155 Medications Current Medications Medications (Trade) Dose Ordered Sig/Margot Route PRN Reason Start Time Stop Time Status Last Admin Dose Admin Dextrose/Sodium Chloride 1,000 ml @ 75 mls/hr [id number] IV 03/04/19 09:45 04/03/19 09:44 Famotidine (Pepcid) 20 mg BIDPRN PRN ORAL heartburn 03/04/19 08:30 04/03/19 08:29 Ondansetron HCl (Zofran) 4 mg Q4HR PRN IVP Nausea & Vomiting 03/04/19 07:15 04/03/19 07:14 Pantoprazole (Protonix) 40 mg DAILY ORAL 03/04/19 09:00 04/03/19 08:59 03/04/19 09:42 Assessment/Plan Diagnosis [place] I: #hyponatremia- hypovolemic in the setting of diarrhea and decreased PO intake #diarrhea #abdominal pain, nausea and emesis #HTN #GERD - D5w 500cc x1 to slow correction - switch d51/2 ns 75cc/hr - avoid thiaziade - urine chemistries - Monitor BMP q4hr - monitor urine output - monitor BP Jose Lopez M.D. Mar 04, 2019 09:51
--- NOTE | 2019-03-04 10:42 | Diagnostic Imaging Report ---
Indication: Abdominal pain Comparison: None Single view of the abdomen obtained Findings: Bowel gas pattern is nonspecific. No mass, ectopic calcifications, or abnormal gas collections are identified. The bones are unremarkable. Impression: No acute findings
--- NOTE | 2019-03-04 10:42 | Diagnostic Imaging Report ---
Indication: Dyspnea Comparison: 02/16/2019 A single view chest radiograph was obtained. Findings: Cardiomediastinal appearance is within normal limits for age. The lungs are clear. Pulmonary vascularity is appropriate. The diaphragmatic contour is smooth and costophrenic angles are sharp. No pleural effusions are identified. The bones are unremarkable. Impression: No acute findings
[2019-03-04] MEDS: D5 1/2NS 1,000 ML IV SCH (10:49)
--- NOTE | 2019-03-04 10:49 | GI Initial Consult Note ---
History of Present Illness General Date patient seen: Mar 04, 2019 Time patient seen: 10:44 Reason for Hospitalization: Nausea, Vomiting, and Diarrhea Referring physician: ADAM KHAN Reason for Consultation: N/V Present Illness HPI Is a 74-year-old female with a history of gastritis and hypertension. She presents with chief complaint of epigastric pain and nausea and vomiting. This is a chronic problem. She was here 2 weeks ago for the same thing. She came in today because she felt both her arms are numb and loopy. No fever chills. Worse with eating. No fever chills but no chest pain. denies any other complaint. No diarrhea. GI consulted for reported epigastric pain. Patient seen, awake alert and oriented x4. Patient denies any abdominal pain, nausea vomiting at this time. The patient reported having severe epigastric pain for approximately 2 weeks. Patient was admitted here 2 weeks ago with similar symptoms. Patient presented today with hyponatremia sodium of 121 which is been corrected to 134. The son is at bedside is concerned that the mom may have gastric ulcers. Denies any melena. Abdominal x-ray shows no acute findings. Home Meds Reported Medications Calcium Carbonate/Vitamin D3 (OYSCO 500+D TABLET) 1 Each Tablet, 1 EACH PO, TAB 03/04/19 Acetaminophen With Codeine (T#3) (TYLENOL #3 TAB*) Y Tab, 1 TAB ORAL Q4H PRN for For Pain, TAB 03/04/19 Ciprofloxacin Hcl* (CIPROFLOXACIN HCL*) 500 Mg Tablet, 500 MG ORAL EVERY 12 HOURS, TAB 0 Refills 03/04/19 Lisinopril* (LISINOPRIL*) 10 Mg Tablet, 10 MG ORAL BID, TAB 02/19/19 Calcium Carbonate/Vitamin D3 (OYSTER SHELL CALCIUM +D TABLET) 1 Each Tablet, 1 EACH PO DAILY, TAB 01/30/19 Omeprazole (OMEPRAZOLE) 20 Mg Capsule.dr, 20 MG ORAL DAILY, CAP 04/12/18 Med list reviewed/reconciled: Yes Allergies: Coded Allergies: No Known Allergies (Unverified , 01/03/17) Patient History History Provided By: Patient, Family Member, Medical Record [facility] Narrative Patient History Past Medical History: see triage record, old chart reviewed, HTN, GERD Past Surgical History: other Pertinent Family History: none Social History: Denies: smoking Last Menstrual Period: na Now: No Immunizations: other Reviewed Nursing Documentation: PMH: Agreed; PSxH: Agreed Nursing Documentation-PMH Hx Cardiac Problems: Yes Hx Hypertension: Yes Hx Cancer: No Hx Gastrointestinal Problems: Yes - GERD Hx Neurological Problems: No Social History: Denies: smoking, alcohol use, drug use, other Review of Systems All Other Systems: negative except mentioned in HPI Physical Exam Vital Signs Date Time Temp Pulse Resp B/P (MAP) Pulse Ox O2 Delivery O2 Flow Rate FiO2 03/03/19 23:51 98.4 87 18 125/81 (96) 96 Room Air Sp02 EP Interpretation: reviewed, normal Labs Laboratory Tests Test 03/04/19 00:00 03/04/19 01:00 03/04/19 07:15 White Blood Count 5.8 K/UL (4.8-10.8) 4.1 K/UL (4.8-10.8) L Red Blood Count 4.52 M/UL (4.20-5.40) 3.99 M/UL (4.20-5.40) L Hemoglobin 12.8 G/DL (12.0-16.0) 11.1 G/DL (12.0-16.0) L Hematocrit 36.8 % (37.0-47.0) L 33.1 % (37.0-47.0) L Mean Corpuscular Volume 81 FL (80-99) 83 FL (80-99) Mean Corpuscular Hemoglobin 28.4 PG (27.0-31.0) 27.9 PG (27.0-31.0) Mean Corpuscular Hemoglobin Concent 34.9 G/DL (32.0-36.0) 33.6 G/DL (32.0-36.0) Red Cell Distribution Width 11.9 % (11.6-14.8) 12.6 % (11.6-14.8) Platelet Count 286 K/UL (150-450) 237 K/UL (150-450) Mean Platelet Volume 6.5 FL (6.5-10.1) 5.6 FL (6.5-10.1) L Neutrophils (%) (Auto) 64.0 % (45.0-75.0) 52.6 % (45.0-75.0) Lymphocytes (%) (Auto) 22.9 % (20.0-45.0) 31.3 % (20.0-45.0) Monocytes (%) (Auto) 11.4 % (1.0-10.0) H 13.1 % (1.0-10.0) H Eosinophils (%) (Auto) 0.4 % (0.0-3.0) 1.8 % (0.0-3.0) Basophils (%) (Auto) 1.3 % (0.0-2.0) 1.2 % (0.0-2.0) Urine Color Pale yellow Urine Appearance Clear Urine pH 8 (4.5-8.0) Urine Specific [place] 1.010 (1.005-1.035) Urine Protein Negative (NEGATIVE) Urine Glucose (UA) Negative (NEGATIVE) Urine Ketones 1+ (NEGATIVE) H Urine Blood Negative (NEGATIVE) Urine Nitrite Negative (NEGATIVE) Urine Bilirubin Negative (NEGATIVE) Urine Urobilinogen Normal MG/DL (0.0-1.0) Urine Leukocyte Esterase 1+ (NEGATIVE) H Urine RBC 0-2 /HPF (0 - 2) Urine WBC 0-2 /HPF (0 - 2) Urine Squamous Epithelial Cells Few /LPF (NONE/OCC) Urine Bacteria Few /HPF (NONE) Sodium Level 116 MMOL/L (136-145) *L 121 MMOL/L (136-145) L 132 MMOL/L (136-145) #L Potassium Level 3.9 MMOL/L (3.5-5.1) 3.7 MMOL/L (3.5-5.1) 4.2 MMOL/L (3.5-5.1) Chloride Level 83 MMOL/L (98-107) L 89 MMOL/L (98-107) L 100 MMOL/L (98-107) Carbon Dioxide Level 23 MMOL/L (21-32) 24 MMOL/L (21-32) 26 MMOL/L (21-32) Anion Gap 10 mmol/L (5-15) 8 mmol/L (5-15) 6 mmol/L (5-15) Blood Urea Nitrogen 7 mg/dL (7-18) 6 mg/dL (7-18) L 6 mg/dL (7-18) L Creatinine 0.8 MG/DL (0.55-1.30) 0.7 MG/DL (0.55-1.30) 0.8 MG/DL (0.55-1.30) Estimat Glomerular Filtration Rate mL/min (>60) mL/min (>60) mL/min (>60) Glucose Level 107 MG/DL (74-106) H 105 MG/DL (74-106) 93 MG/DL (74-106) Calcium Level 9.7 MG/DL (8.5-10.1) 8.4 MG/DL (8.5-10.1) L 8.5 MG/DL (8.5-10.1) Total Bilirubin 1.1 MG/DL (0.2-1.0) H 0.8 MG/DL (0.2-1.0) Direct Bilirubin 0.3 MG/DL (0.0-0.3) Aspartate Amino Transf (AST/SGOT) 23 U/L (15-37) 18 U/L (15-37) Alanine Aminotransferase (ALT/SGPT) 21 U/L (12-78) 17 U/L (12-78) Alkaline Phosphatase 91 U/L (46-116) 72 U/L (46-116) Troponin I 0.006 ng/mL (0.000-0.056) Total Protein 8.0 G/DL (6.4-8.2) 6.4 G/DL (6.4-8.2) Albumin 4.1 G/DL (3.4-5.0) 3.2 G/DL (3.4-5.0) L Globulin 3.9 g/dL 3.2 g/dL Albumin/Globulin Ratio 1.1 (1.0-2.7) 1.0 (1.0-2.7) Lipase 225 U/L (73-393) Thyroid Stimulating Hormone (TSH) 0.854 uiU/mL (0.358-3.740) General Appearance: well appearing, no apparent distress, alert Head: normocephalic EENT: PERRL/EOMI, normal ENT inspection Neck: supple Respiratory: normal breath sounds, no respiratory distress Cardiovascular: normal rate Gastrointestinal: normal inspection, non tender, soft, normal bowel sounds, non -distended Rectal: deferred Genitourinary: no CVA tenderness Musculoskeletal: normal inspection, back normal Neurologic: normal inspection, alert, oriented x3, responsive Psychiatric: normal inspection, judgement/insight normal, memory normal Skin: normal inspection, normal color, no rash, warm/dry, palpation normal, well hydrated Lymphatic: normal inspection, no adenopathy Current Medications Current Medications Medications (Trade) Dose Ordered Sig/Margot Route PRN Reason Start Time Stop Time Status Last Admin Dose Admin Dextrose/Sodium Chloride 1,000 ml @ 75 mls/hr [id number] IV 03/04/19 09:45 04/03/19 09:44 Famotidine (Pepcid) 20 mg BIDPRN PRN ORAL heartburn 03/04/19 08:30 04/03/19 08:29 Ondansetron HCl (Zofran) 4 mg Q4HR PRN IVP Nausea & Vomiting 03/04/19 07:15 04/03/19 07:14 Pantoprazole (Protonix) 40 mg DAILY ORAL 03/04/19 09:00 04/03/19 08:59 03/04/19 09:42 GI: Plan Problems: (1) GERD (gastroesophageal reflux disease) (2) PUD (peptic ulcer disease) (3) Gastritis Plan EGD scheduled for tomorrow to evaluate persistent epigastric pain. Okay to advance diet, n.p.o. at midnight PRN transfusions Pain management PPI Zofran as needed Electrolyte correction We will follow with additional recommendations postprocedure Discussed with Dr. Arriaza. Thank you for this patient referral, we will follow. The patient was seen and examined at bedside and all new and available data was reviewed in the patients chart. I agree with the above findings, impression and plan. (Patient seen earlier today. Signature stamp does not reflect patient encounter time.). - [facility] [employer] Mar 04, 2019 10:49
--- NOTE | 2019-03-04 10:49 | NUR ---
RADIOLOGY DEPT., CHEST AND ABDOMEN X-RAYS PERFORMED.-P.DYE
[2019-03-04 12:22] LABS: ANION GAP 9 mmol/L (5-15); BLOOD UREA NITROGEN 7 mg/dL (7-18); CALCIUM 8.7 MG/DL (8.5-10.1); CARBON DIOXIDE 24 MMOL/L (21-32); CHLORIDE 99 MMOL/L (98-107); CREATININE 0.8 MG/DL (0.55-1.30); POTASSIUM 4.2 MMOL/L (3.5-5.1); SODIUM 132 MMOL/L (136-145)
--- NOTE | 2019-03-04 14:56 | NUR ---
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 98.4 HR 81 RR 18 B/P 125/84 NA 116 CXR= NO ACUTE PROCESS ABD/PEL CT= NO ACUTE PROCESS IS: IV BOLUS NS X 1 LITER ADMITTED TO TELE @ 0230 TELE STATUS DCP RETURN HOME WITH FAMILY
[2019-03-04 16:05] LABS: ANION GAP 8 mmol/L (5-15); BLOOD UREA NITROGEN 6 mg/dL (7-18); CALCIUM 8.7 MG/DL (8.5-10.1); CARBON DIOXIDE 25 MMOL/L (21-32); CHLORIDE 101 MMOL/L (98-107); CREATININE 0.8 MG/DL (0.55-1.30); POTASSIUM 4.4 MMOL/L (3.5-5.1); SODIUM 134 MMOL/L (136-145)
--- NOTE | 2019-03-04 19:30 | NUR ---
NURSE NOTES: Received patient from Patrice RN, patient in bed, on room air, no s/s of respiratory distress. 20 Gauge IV on left antecubital, patent, intact, with D5 1/2 NS infusing at 75ml/hr. NO c/o pain, calm and cooperative. Bed in low position, locked, call light within reach.
[2019-03-04 21:29] LABS: ANION GAP 6 mmol/L (5-15); BLOOD UREA NITROGEN 8 mg/dL (7-18); CALCIUM 8.5 MG/DL (8.5-10.1); CARBON DIOXIDE 26 MMOL/L (21-32); CHLORIDE 101 MMOL/L (98-107); CREATININE 0.8 MG/DL (0.55-1.30); POTASSIUM 4.3 MMOL/L (3.5-5.1); SODIUM 133 MMOL/L (136-145)
--- NOTE | 2019-03-04 22:00 | NUR ---
NURSE NOTES: Instructed patient that she will be NPO at midnight and not to eat or drink.
[2019-03-05] VITALS (12 sets, daily range): BP systolic 94–132; BP diastolic 45–76
--- NOTE | 2019-03-05 | NUR ---
NURSE NOTES: Reminded patient that she is NPO and is not to have anything to eat or drink. Patient understood.
[2019-03-05 00:37] LABS: ANION GAP 6 mmol/L (5-15); BLOOD UREA NITROGEN 6 mg/dL (7-18); CALCIUM 8.6 MG/DL (8.5-10.1); CARBON DIOXIDE 26 MMOL/L (21-32); CHLORIDE 100 MMOL/L (98-107); CREATININE 0.8 MG/DL (0.55-1.30); POTASSIUM 4.2 MMOL/L (3.5-5.1); SODIUM 132 MMOL/L (136-145)
[2019-03-05] MEDS: D5 1/2NS 1,000 ML IV SCH ×2 (01:22→13:48)
[2019-03-05 04:32] LABS: BASOPHILS % (AUTO) 2.1 % (0.0-2.0); EOSINOPHILS % (AUTO) 3.6 % (0.0-3.0); HEMATOCRIT 33.4 % (37.0-47.0); HEMOGLOBIN 11.2 G/DL (12.0-16.0); LYMPHOCYTES % (AUTO) 36.4 % (20.0-45.0); MEAN CORPUSCULAR VOLUME 84 FL (80-99); MONOCYTES % (AUTO) 11.1 % (1.0-10.0); NEUTROPHILS % (AUTO) 46.9 % (45.0-75.0); PLATELET COUNT 250 K/UL (150-450); RED BLOOD COUNT 3.96 M/UL (4.20-5.40); RED CELL DISTRIBUTION WIDTH 12.1 % (11.6-14.8); WHITE BLOOD COUNT 3.6 K/UL (4.8-10.8)
[2019-03-05 06:20] LABS: ANION GAP 7 mmol/L (5-15); BLOOD UREA NITROGEN 7 mg/dL (7-18); CALCIUM 8.8 MG/DL (8.5-10.1); CARBON DIOXIDE 25 MMOL/L (21-32); CHLORIDE 101 MMOL/L (98-107); CREATININE 0.8 MG/DL (0.55-1.30); POTASSIUM 4.2 MMOL/L (3.5-5.1); SODIUM 133 MMOL/L (136-145)
--- NOTE | 2019-03-05 07:28 | NUR ---
NURSE NOTES: Report received from ALINE Moore. Patient AOx4. IN RA. Denies SOB or pain. Helped to the restroom. IV running, site intact. Family at bedside.
[2019-03-05] MEDS ORDERED: Lisinopril 10mg tab ORAL PRN (07:45)
--- NOTE | 2019-03-05 08:43 | NUR ---
NURSE NOTES: Informed Dr. Mcmahon regarding Pt's BM.
--- NOTE | 2019-03-05 08:45 | NUR ---
NURSE NOTES: Left a message to Dr. Mcmahon regarding Pt's complaint of leg pain. Waiting for a call back.
[2019-03-05 08:51] LABS: ANION GAP 8 mmol/L (5-15); BLOOD UREA NITROGEN 7 mg/dL (7-18); CALCIUM 9.2 MG/DL (8.5-10.1); CARBON DIOXIDE 24 MMOL/L (21-32); CHLORIDE 100 MMOL/L (98-107); CREATININE 0.8 MG/DL (0.55-1.30); POTASSIUM 4.2 MMOL/L (3.5-5.1); SODIUM 132 MMOL/L (136-145)
[2019-03-05 08:53] LABS: INR 0.9 (0.9-1.1)
[2019-03-05] MEDS ORDERED: LR 1000ml 1,000 ML IVLG SCH (11:44)
[2019-03-05] MEDS ORDERED: DiphenhydrAMINE 50mg/ml Inj IVP PRN (11:45)
[2019-03-05] MEDS ORDERED: Hydromorphone 0.5mg/0.5ml inj IVP PRN (11:45)
[2019-03-05] MEDS ORDERED: Labetalol 5mg/ml 20ml vial IV PRN (11:45)
[2019-03-05] MEDS ORDERED: LORazepam Inj 2mg/ml 1ml IV PRN (11:45)
[2019-03-05] MEDS ORDERED: HYDROcodone/Acetamin 7.5/325 tab ORAL PRN (11:45)
[2019-03-05] MEDS ORDERED: Meperidine 50mg/ml Inj(FOR RIGORS ONLY) IVP PRN (11:45)
[2019-03-05] MEDS ORDERED: fentaNYL 100 mcg/2 mL IV PRN (11:45)
[2019-03-05] MEDS ORDERED: Metoclopramide 10mg/2ml Inj IVP PRN (11:45)
[2019-03-05] MEDS ORDERED: HYDROcodone/Acetamin 5/325 tab ORAL PRN (11:45)
[2019-03-05] MEDS ORDERED: oxyCODONE HCL/Acetaminophen 5/325mg ORAL PRN (11:45)
[2019-03-05] MEDS ORDERED: Ketorolac 30mg Inj IV PRN ×2 (11:45)
[2019-03-05] MEDS ORDERED: Atropine Sulfate 0.4mg/ml inj IVP PRN (11:45)
[2019-03-05] MEDS ORDERED: Midazolam 2mg/2ml Inj IVP PRN (11:45)
--- NOTE | 2019-03-05 11:46 | Anethesia Preoperative Eval ---
Anesthesia Pre-op PMH/ROS General Date of Evaluation: Mar 05, 2019 Time of Evaluation: 12:39 Anesthesiologist: Sameer ASA Score: ASA 3 Mallampati Score Class I : Soft palate, uvula, fauces, pillars visible Class II: Soft palate, uvula, fauces visible Class III: Soft palate, base of uvula visible Class IV: Only hard plate visible Mallampati Classification: Class II Surgeon: Sofiya Diagnosis: Abd Pain Surgical Procedure: EGD Anesthesia History: none Family History: no anesthesia problems Allergies: Coded Allergies: No Known Allergies (Unverified , 01/03/17) Medications: see eMAR Patient NPO?: Yes Past Medical History Cardiovascular: Reports: HTN Gastrointestinal/Genitourinary: Reports: GERD Hematology/Immune: Reports: anemia Anesthesia Pre-op Phys. Exam Physician Exam Last Vital Signs Date Time Temp Pulse Resp B/P (MAP) Pulse Ox O2 Delivery O2 Flow Rate FiO2 03/05/19 08:00 97.7 73 18 131/76 (94) 99 03/04/19 21:00 Room Air Constitutional: NAD Neurologic: CN 2-12 intact Cardiovascular: RRR Respiratory: CTA Gastrointestinal: S/NT/ND Airway Exam Mallampati Score: Class II MO: limited ROM: limited Teeth: missing Dentures: upper, lower Anesthesia Pre-op A/P Labs Hematology Test 03/05/19 04:00 White Blood Count 3.6 K/UL (4.8-10.8) L Red Blood Count 3.96 M/UL (4.20-5.40) L Hemoglobin 11.2 G/DL (12.0-16.0) L Hematocrit 33.4 % (37.0-47.0) L Mean Corpuscular Volume 84 FL (80-99) Mean Corpuscular Hemoglobin 28.2 PG (27.0-31.0) Mean Corpuscular Hemoglobin Concent 33.5 G/DL (32.0-36.0) Red Cell Distribution Width 12.1 % (11.6-14.8) Platelet Count 250 K/UL (150-450) Mean Platelet Volume 6.2 FL (6.5-10.1) L Neutrophils (%) (Auto) 46.9 % (45.0-75.0) Lymphocytes (%) (Auto) 36.4 % (20.0-45.0) Monocytes (%) (Auto) 11.1 % (1.0-10.0) H Eosinophils (%) (Auto) 3.6 % (0.0-3.0) H Basophils (%) (Auto) 2.1 % (0.0-2.0) H Coagulation Test 03/05/19 08:10 Prothrombin Time 9.6 SEC (9.30-11.50) Prothromb Time International Ratio 0.9 (0.9-1.1) Activated Partial Thromboplast Time 25 SEC (23-33) Chemistry Test 03/04/19 12:10 03/04/19 15:30 03/04/19 20:13 03/05/19 00:10 Sodium Level 132 MMOL/L (136-145) L 134 MMOL/L (136-145) L 133 MMOL/L (136-145) L 132 MMOL/L (136-145) L Potassium Level 4.2 MMOL/L (3.5-5.1) 4.4 MMOL/L (3.5-5.1) 4.3 MMOL/L (3.5-5.1) 4.2 MMOL/L (3.5-5.1) Chloride Level 99 MMOL/L (98-107) 101 MMOL/L (98-107) 101 MMOL/L (98-107) 100 MMOL/L (98-107) Carbon Dioxide Level 24 MMOL/L (21-32) 25 MMOL/L (21-32) 26 MMOL/L (21-32) 26 MMOL/L (21-32) Anion Gap 9 mmol/L (5-15) 8 mmol/L (5-15) 6 mmol/L (5-15) 6 mmol/L (5-15) Blood Urea Nitrogen 7 mg/dL (7-18) 6 mg/dL (7-18) L 8 mg/dL (7-18) 6 mg/dL (7-18) L Creatinine 0.8 MG/DL (0.55-1.30) 0.8 MG/DL (0.55-1.30) 0.8 MG/DL (0.55-1.30) 0.8 MG/DL (0.55-1.30) Estimat Glomerular Filtration Rate mL/min (>60) mL/min (>60) mL/min (>60) mL/min (>60) Glucose Level 106 MG/DL (74-106) 79 MG/DL (74-106) 102 MG/DL (74-106) 100 MG/DL (74-106) Calcium Level 8.7 MG/DL (8.5-10.1) 8.7 MG/DL (8.5-10.1) 8.5 MG/DL (8.5-10.1) 8.6 MG/DL (8.5-10.1) Test 03/05/19 04:00 03/05/19 08:10 Sodium Level 133 MMOL/L (136-145) L 132 MMOL/L (136-145) L Potassium Level 4.2 MMOL/L (3.5-5.1) 4.2 MMOL/L (3.5-5.1) Chloride Level 101 MMOL/L (98-107) 100 MMOL/L (98-107) Carbon Dioxide Level 25 MMOL/L (21-32) 24 MMOL/L (21-32) Anion Gap 7 mmol/L (5-15) 8 mmol/L (5-15) Blood Urea Nitrogen 7 mg/dL (7-18) 7 mg/dL (7-18) Creatinine 0.8 MG/DL (0.55-1.30) 0.8 MG/DL (0.55-1.30) Estimat Glomerular Filtration Rate mL/min (>60) mL/min (>60) Glucose Level 94 MG/DL (74-106) 93 MG/DL (74-106) Calcium Level 8.8 MG/DL (8.5-10.1) 9.2 MG/DL (8.5-10.1) Ionized Calcium (Measured) 1.16 mmol/L (1.10-1.35) Risk Assessment & Plan Assessment: ASA 3 Plan: TIVA Status Change Before Surgery: No Trevor Estrella MD Mar 05, 2019 11:46
--- NOTE | 2019-03-05 11:52 | Nephrology Progress Note ---
Assessment/Plan Assessment #hyponatremia- hypovolemic in the setting of diarrhea and decreased PO intake #diarrhea #abdominal pain, nausea and emesis #HTN #GERD - continue d51/2 ns 75cc/hr - avoid thiaziade - Monitor BMP daily now - monitor urine output - monitor BP - EGD today Plan #hyponatremia- hypovolemic in the setting of diarrhea and decreased PO intake #diarrhea #abdominal pain, nausea and emesis #HTN #GERD - D5w 500cc x1 to slow correction - switch d51/2 ns 75cc/hr - avoid thiaziade - urine chemistries - Monitor BMP q4hr - monitor urine output - monitor BP Subjective Interval Events/Complaints less nausea today sodium 132 EGD today Objective Objective Last 24 Hour Vital Signs Date Time Temp Pulse Resp B/P (MAP) Pulse Ox O2 Delivery O2 Flow Rate FiO2 03/05/19 08:00 97.7 73 18 131/76 (94) 99 03/05/19 08:00 72 03/05/19 03:24 61 03/05/19 00:00 97.0 67 18 132/52 (78) 98 03/04/19 23:26 69 03/04/19 21:00 Room Air 03/04/19 20:00 97.0 75 18 123/74 (90) 97 03/04/19 19:45 81 03/04/19 16:00 68 03/04/19 16:00 98.0 76 18 103/54 (70) 98 03/04/19 12:00 74 03/04/19 12:00 98.1 70 18 115/54 (74) 99 Intake and Output 03/04/19 03/05/19 19:00 07:00 Intake Total 720 ml Balance 720 ml Intake Oral 720 ml # Voids 5 3 # Bowel Movements 2 1 Laboratory Tests 03/04/19 12:10: Sodium Level 132L, Potassium Level 4.2, Chloride Level 99, Carbon Dioxide Level 24, Anion Gap 9, Blood Urea Nitrogen 7, Creatinine 0.8, Estimat Glomerular Filtration Rate , Glucose Level 106, Calcium Level 8.7 03/04/19 15:30: Sodium Level 134L, Potassium Level 4.4, Chloride Level 101, Carbon Dioxide Level 25, Anion Gap 8, Blood Urea Nitrogen 6L, Creatinine 0.8, Estimat Glomerular Filtration Rate , Glucose Level 79, Calcium Level 8.7 03/04/19 20:13: Sodium Level 133L, Potassium Level 4.3, Chloride Level 101, Carbon Dioxide Level 26, Anion Gap 6, Blood Urea Nitrogen 8, Creatinine 0.8, Estimat Glomerular Filtration Rate , Glucose Level 102, Calcium Level 8.5 03/05/19 00:10: Sodium Level 132L, Potassium Level 4.2, Chloride Level 100, Carbon Dioxide Level 26, Anion Gap 6, Blood Urea Nitrogen 6L, Creatinine 0.8, Estimat Glomerular Filtration Rate , Glucose Level 100, Calcium Level 8.6 03/05/19 04:00: White Blood Count 3.6L, Red Blood Count 3.96L, Hemoglobin 11.2L, Hematocrit 33.4L, Mean Corpuscular Volume 84, Mean Corpuscular Hemoglobin 28.2, Mean Corpuscular Hemoglobin Concent 33.5, Red Cell Distribution Width 12.1, Platelet Count 250, Mean Platelet Volume 6.2L, Neutrophils (%) (Auto) 46.9, Lymphocytes ( %) (Auto) 36.4, Monocytes (%) (Auto) 11.1H, Eosinophils (%) (Auto) 3.6H, Basophils (%) (Auto) 2.1H, Sodium Level 133L, Potassium Level 4.2, Chloride Level 101, Carbon Dioxide Level 25, Anion Gap 7, Blood Urea Nitrogen 7, Creatinine 0.8, Estimat Glomerular Filtration Rate , Glucose Level 94, Calcium Level 8.8, Ionized Calcium (Measured) 1.16 03/05/19 08:10: Sodium Level 132L, Potassium Level 4.2, Chloride Level 100, Carbon Dioxide Level 24, Anion Gap 8, Blood Urea Nitrogen 7, Creatinine 0.8, Estimat Glomerular Filtration Rate , Glucose Level 93, Calcium Level 9.2, Prothrombin Time 9.6, Prothromb Time International Ratio 0.9, Activated Partial Thromboplast Time 25, Urine Random Sodium 88, Urine Potassium Timed 11L Height (Feet): 5 Height (Inches): 5.00 Weight (Pounds): 155 Objective General Appearance: WD/WN, no apparent distress HEENT: normocephalic, atraumatic Neck: non-tender, supple Respiratory/Chest: expiratory wheezing Cardiovascular/Chest: normal rate, regular rhythm Abdomen: normal bowel sounds, non tender, soft, hypoactive bowel sounds Extremities: non-tender, normal inspection Neurologic: alert, oriented x 3 Pirouz,Aslan M.D. Mar 05, 2019 11:52
--- NOTE | 2019-03-05 12:24 | Pre-Procedure Note/Attestation ---
Pre-Procedure Note/Attestation Complete Prior to Procedure Planned Procedure: not applicable Procedure Narrative: egd Indications for Procedure Pre-Operative Diagnosis: GERD, abd pain Attestation I attest that I discussed the nature of the procedure; its benefits; risks and complications; and alternatives (and the risks and benefits of such alternatives ), prior to the procedure, with the patient (or the patient's legal surgical device sales representative). I attest that, if there was a reasonable possibility of needing a blood transfusion, the patient (or the patient's legal surgical device sales representative) was given the [facility] standardized written summary, pursuant to the Olaf Jono Blood Safety Act ([place] Health and Safety Code # 1645, as amended). I attest that I re-evaluated the patient just prior to the surgery and that there has been no change in the patient's H&P, except as documented below: Frederick Arriaza MD Mar 05, 2019 12:24
[2019-03-05] MEDS ORDERED: Lidocaine 1% MPF 10mg/ml 5ml ONE (12:30)
[2019-03-05] MEDS ORDERED: Propofol 200mg/20ml IV ONE (12:30)
[2019-03-05] MEDS ORDERED: LR 1000ml ONE (12:30)
[2019-03-05] MEDS ORDERED: Flumazenil 0.1mg/ml 5ml Inj IV ONE (12:30)
--- NOTE | 2019-03-05 12:41 | Endoscopy Procedure Note ---
Endoscopy Procedure Note General Indication for Procedure: abd pain Procedures Performed: EGD Operative Findings/Diagnosis: gastritis Specimen: yes Pt Tolerated Procedure Well: Yes Estimated Blood Loss: none Anesthesia Anesthesiologist: ana Anesthesia: MAC Inserted Devices Implant(s) used?: No GI Core Measures 50 yrs or older w/o bx or poly: Not Applicable 10yrs. F/U recommended: Not Applicable Frederick Arriaza MD Mar 05, 2019 12:41
--- NOTE | 2019-03-05 12:55 | Immediate Post-Op Evaluation ---
Immediate Post-Op Evalulation Immediate Post-Op Evalulation Procedure: EGD Date of Evaluation: Mar 05, 2019 Time of Evaluation: 13:18 IV Fluids: 1000 LR Blood Products: 0 Estimated Blood Loss: 2 Urinary Output: 0 Blood Pressure Systolic: 94 Blood Pressure Diastolic: 45 Pulse Rate: 77 Respiratory Rate: 16 O2 Sat by Pulse Oximetry: 99 Temperature (Fahrenheit): 97.1 Pain Score (1-10): 2 Nausea: No Vomiting: No Complications 0 Patient Status: awake, reacts, patent, none Hydration Status: adequate Trevor Estrella MD Mar 05, 2019 12:55
--- NOTE | 2019-03-05 12:57 | 48 Hour Post Anesthesia Eval ---
Post Anesthesia Evaluation Procedure: EGD Date of Evaluation: Mar 05, 2019 Time of Evaluation: 15:23 Blood Pressure Systolic: 141 0: 67 Pulse Rate: 74 Respiratory Rate: 18 Temperature (Fahrenheit): 97.4 O2 Sat by Pulse Oximetry: 99 Airway: patent Nausea: No Vomiting: No Pain Intensity: 2 Hydration Status: adequate Cardiopulmonary Status: Stable Mental Status/LOC: patient returned to baseline Follow-up Care/Observations: 0 Post-Anesthesia Complications: 0 Follow-up care needed: N/A Trevor Estrella MD Mar 05, 2019 12:57
--- NOTE | 2019-03-05 13:39 | General Progress Note ---
Assessment/Plan Assessment/Plan: 74 yo female w PMH of HTN and GERD, who presents for nausea and vomiting, with hyponatremia found on labs. # Hyponatremia, hypovolemic from n/v - ivf: ns @ 50; to be changed per nephrology reqs - correct 2 units per hour - q4h bmp-> ok for daily chem panel - nephrology consult - XR abd - no thiazide # Abd pain # Nausea vomiting - CT a/p last visit showed hernia - GI consult - EGD today # HTN - cont amlodipine # GERD - ppi - pepcid prn # Full code - discussed w patient and son at bedside 17 minutes Subjective Allergies: Coded Allergies: No Known Allergies (Unverified , 01/03/17) Subjective patient was able to eat a sandwich for dinner last night w no v. denies abd pain, n, v today pending egd Objective Last 24 Hour Vital Signs Date Time Temp Pulse Resp B/P (MAP) Pulse Ox O2 Delivery O2 Flow Rate FiO2 03/05/19 13:20 69 16 117/54 99 Room Air 03/05/19 13:15 67 15 122/54 98 Room Air 03/05/19 13:10 67 16 122/61 100 Simple Mask 6 03/05/19 13:07 97.1 76 14 94/45 100 Simple Mask 6 03/05/19 13:06 74 18 99 03/05/19 13:04 77 16 99 03/05/19 09:00 Room Air 03/05/19 08:00 97.7 73 18 131/76 (94) 99 03/05/19 08:00 72 03/05/19 03:24 61 03/05/19 00:00 97.0 67 18 132/52 (78) 98 03/04/19 23:26 69 03/04/19 21:00 Room Air 03/04/19 20:00 97.0 75 18 123/74 (90) 97 03/04/19 19:45 81 03/04/19 16:00 68 03/04/19 16:00 98.0 76 18 103/54 (70) 98 Intake and Output 03/04/19 03/05/19 19:00 07:00 Intake Total 720 ml Balance 720 ml Intake Oral 720 ml # Voids 5 3 # Bowel Movements 2 1 Laboratory Tests 03/04/19 15:30: Sodium Level 134L, Potassium Level 4.4, Chloride Level 101, Carbon Dioxide Level 25, Anion Gap 8, Blood Urea Nitrogen 6L, Creatinine 0.8, Estimat Glomerular Filtration Rate , Glucose Level 79, Calcium Level 8.7 03/04/19 20:13: Sodium Level 133L, Potassium Level 4.3, Chloride Level 101, Carbon Dioxide Level 26, Anion Gap 6, Blood Urea Nitrogen 8, Creatinine 0.8, Estimat Glomerular Filtration Rate , Glucose Level 102, Calcium Level 8.5 03/05/19 00:10: Sodium Level 132L, Potassium Level 4.2, Chloride Level 100, Carbon Dioxide Level 26, Anion Gap 6, Blood Urea Nitrogen 6L, Creatinine 0.8, Estimat Glomerular Filtration Rate , Glucose Level 100, Calcium Level 8.6 03/05/19 04:00: Sodium Level 133L, Potassium Level 4.2, Chloride Level 101, Carbon Dioxide Level 25, Anion Gap 7, Blood Urea Nitrogen 7, Creatinine 0.8, Estimat Glomerular Filtration Rate , Glucose Level 94, Calcium Level 8.8, White Blood Count 3.6L, Red Blood Count 3.96L, Hemoglobin 11.2L, Hematocrit 33.4L, Mean Corpuscular Volume 84, Mean Corpuscular Hemoglobin 28.2, Mean Corpuscular Hemoglobin Concent 33.5, Red Cell Distribution Width 12.1, Platelet Count 250, Mean Platelet Volume 6.2L, Neutrophils (%) (Auto) 46.9, Lymphocytes (%) (Auto) 36.4, Monocytes (%) (Auto) 11.1H, Eosinophils (%) (Auto) 3.6H, Basophils (%) ( Auto) 2.1H, Ionized Calcium (Measured) 1.16 03/05/19 08:10: Prothrombin Time 9.6, Prothromb Time International Ratio 0.9, Activated Partial Thromboplast Time 25, Urine Random Sodium 88, Urine Potassium Timed 11L, Sodium Level 132L, Potassium Level 4.2, Chloride Level 100, Carbon Dioxide Level 24, Anion Gap 8, Blood Urea Nitrogen 7, Creatinine 0.8, Estimat Glomerular Filtration Rate , Glucose Level 93, Calcium Level 9.2 Height (Feet): 5 Height (Inches): 5.00 Weight (Pounds): 155 General Appearance: WD/WN, no apparent distress, alert Neck: non-tender, normal alignment, supple Cardiovascular: normal rate, regular rhythm, no JVD Respiratory/Chest: chest wall non-tender, lungs clear, normal breath sounds Abdomen: non tender, soft, no organomegaly Extremities: non-tender Edema: no edema noted Arm (L), no edema noted Arm (R), no edema noted Leg (L), no edema noted Leg (R), no edema noted Pedal (L), no edema noted Pedal (R), no edema noted Generalized Neurologic: manager printing II-XII grossly normal, oriented x 3, normal mood/affect Leonela Mcmahon DO Mar 05, 2019 13:39
--- NOTE | 2019-03-05 13:39 | Diagnostic Imaging Report ---
APPROVED REPORT CPT Code: 92511 Present Symptoms Comments: AMS BILATERAL: Imaging reveals a patent deep venous system bilaterally. There is no evidence of thrombus within the femoral, popliteal or tibial segments. The greater saphenous veins are also within normal limits. Doppler indicates normal spontaneous flow within these segments.
--- NOTE | 2019-03-05 14:17 | NUR ---
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 97.5 HR 76 RR 14 B/P 94/45 NA 132 IS: IVF D5NS @ 75ML/HR PROTONIX IV TELE STATUS
[2019-03-05 16:19] LABS: ANION GAP 10 mmol/L (5-15); BLOOD UREA NITROGEN 7 mg/dL (7-18); CALCIUM 9.1 MG/DL (8.5-10.1); CARBON DIOXIDE 23 MMOL/L (21-32); CHLORIDE 102 MMOL/L (98-107); CREATININE 0.8 MG/DL (0.55-1.30); POTASSIUM 3.8 MMOL/L (3.5-5.1); SODIUM 135 MMOL/L (136-145)
--- NOTE | 2019-03-05 17:00 | Procedure Note ---
DATE OF PROCEDURE: 03/05/2019 SURGEON: Frederick Arriaza M.D. REFERRING PHYSICIAN: Marija Wall M.D. PROCEDURE: Upper endoscopy with biopsy. ANESTHESIA: Per Dr. Estrella. INSTRUMENT: Olympus adult flexible upper endoscope. INDICATION: Abdominal pain and chronic gastric reflux. REASON FOR PROCEDURE: The procedure, risks, benefits, and possible consequences, including hemorrhage, aspiration, perforation and infection, and alternative treatments, were explained to the patient/legal guardian by Dr. Frederick Arriaza and the patient/legal guardian understood and accepted these risks. PROCEDURE IN DETAIL: After informed consent was obtained and the patient was adequately sedated, Olympus upper endoscope was advanced from mouth into the second portion of the duodenum and retroflexion was performed in the stomach. The patient had evidence of short esophagus. GE junction was found to be about 31 cm from the incisors, diaphragmatic pinch at about 34. So, the patient had about 3 cm hiatal hernia. There was some small salmon-colored mucosa above the Z-line, possibly of short-segment Yuan's, which was biopsied. In the stomach, there was evidence of diffuse gastritis. Random biopsy from antrum was obtained to rule out H. pylori infection. Otherwise, the rest of upper endoscopic examination grossly looked within normal limits. SUMMARY OF FINDINGS: 1. Gastritis, status post biopsy. 2. 3 cm hiatal hernia. 3. Possible short-segment Yuan's, status post biopsy. RECOMMENDATIONS: Follow up biopsy results and treat accordingly. I want to thank Dr. Wall for this kind referral. Frederick Arriaza M.D. DR: MICHAEL JOB#: [id number] CC:
--- NOTE | 2019-03-05 18:26 | Cardiology Report ---
APPROVED REPORT EKG Measurement Heart [id number] Normal sinus rhythm Normal ECG
--- NOTE | 2019-03-05 19:31 | NUR ---
HAND-OFF: Report given to ALINE Moore. Patient in stable condition. Family at bedside.
--- NOTE | 2019-03-05 20:00 | NUR ---
NURSE NOTES: Received patient from Patrice MIRELES. Patient in bed, on room air, no s/s respiratory distress. IV on left AC intact, patent, no signs of infiltration, on D5 1/2 NS at 75ml/hr.
[2019-03-05 20:41] LABS: ANION GAP 8 mmol/L (5-15); BLOOD UREA NITROGEN 6 mg/dL (7-18); CALCIUM 8.6 MG/DL (8.5-10.1); CARBON DIOXIDE 24 MMOL/L (21-32); CHLORIDE 102 MMOL/L (98-107); POTASSIUM 4.2 MMOL/L (3.5-5.1); SODIUM 134 MMOL/L (136-145)
--- NOTE | 2019-03-05 22:44 | NUR ---
NURSE NOTES: Sodium at 134, contacted Dr. Mcmahon if she wants to continue BMP Q 4 hrs, received orders for daily BMP.
[2019-03-06] VITALS: BP 119/72
[2019-03-06] MEDS: D5 1/2NS 1,000 ML IV SCH ×2 (01:29→15:00)
[2019-03-06 04:00] VITALS: BP 129/72
--- NOTE | 2019-03-06 07:24 | NUR ---
HAND-OFF: Report given to Mae MIRELES.
--- NOTE | 2019-03-06 07:25 | NUR ---
NURSE NOTES: Received report from ALINE Moore. Observed patient in bed, awake, alert, and verbally responsive, Vincentian speaking. On room air, no distress noted at this time. IV on left AC 20g intact and patent with IV fluids infusing at prescribed rate. Denies pain/discomfort at this time. Safety precautions in place. Bed locked, alarmed, and in lowest position, side rails up x3, and call light left within reach. Will continue to monitor.
[2019-03-06 07:33] LABS: BASOPHILS % (AUTO) 1.1 % (0.0-2.0); EOSINOPHILS % (AUTO) 4.9 % (0.0-3.0); HEMATOCRIT 36.7 % (37.0-47.0); HEMOGLOBIN 12.1 G/DL (12.0-16.0); LYMPHOCYTES % (AUTO) 27.9 % (20.0-45.0); MEAN CORPUSCULAR VOLUME 85 FL (80-99); PLATELET COUNT 257 K/UL (150-450); RED CELL DISTRIBUTION WIDTH 12.3 % (11.6-14.8)
[2019-03-06 07:43] LABS: ANION GAP 4 mmol/L (5-15); BLOOD UREA NITROGEN 9 mg/dL (7-18); CALCIUM 8.6 MG/DL (8.5-10.1); CARBON DIOXIDE 27 MMOL/L (21-32); CHLORIDE 101 MMOL/L (98-107); CREATININE 0.8 MG/DL (0.55-1.30); SODIUM 132 MMOL/L (136-145)
[2019-03-06 08:00] VITALS: BP 128/76
[2019-03-06 08:00] LABS: % IRON SATURATION 11 % (15-50); IRON 35 ug/dL (50-175); TOTAL IRON BINDING CAPACITY 322 ug/dL (250-450)
--- NOTE | 2019-03-06 10:06 | GI Progress Note ---
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 Arriaza. Assessment/Plan SUMMARY OF FINDINGS: 1. Gastritis, status post biopsy. 2. 3 cm hiatal hernia. 3. Possible short-segment Yuan's, status post biopsy. OB stool pending Ferritin level pending Dysuria RECOMMENDATIONS: regular diet ppi zofran prn follow lab check UA/UCx follow up biopsy results and treat accordingly. outpatient follow up for GERD The patient was seen and examined at bedside and all new and available data was reviewed in the patients chart. I agree with the above findings, impression and plan. (Patient seen earlier today. Signature stamp does not reflect patient encounter time.). - Frederick Arriaza MD Subjective Subjective painful urination denies any abdominal pain Objective Last 24 Hour Vital Signs Date Time Temp Pulse Resp B/P (MAP) Pulse Ox O2 Delivery O2 Flow Rate FiO2 03/06/19 08:00 97.5 74 18 128/76 (93) 98 03/06/19 04:00 97.5 66 19 129/72 (91) 98 03/06/19 03:57 67 03/06/19 00:00 97.1 77 18 119/72 (88) 96 03/05/19 23:32 79 03/05/19 21:00 Room Air 03/05/19 20:00 97.7 83 18 131/65 (87) 98 03/05/19 19:02 79 03/05/19 16:00 76 03/05/19 16:00 98.1 76 18 125/71 (89) 99 03/05/19 13:50 67 18 119/62 98 Room Air 03/05/19 13:40 69 18 115/57 98 Room Air 03/05/19 13:30 68 17 117/52 99 Room Air 03/05/19 13:20 69 16 117/54 99 Room Air 03/05/19 13:15 67 15 122/54 98 Room Air 03/05/19 13:10 67 16 122/61 100 Simple Mask 6 03/05/19 13:07 97.1 76 14 94/45 100 Simple Mask 6 03/05/19 13:06 74 18 99 03/05/19 13:04 77 16 99 03/05/19 12:00 83 03/05/19 12:00 98.5 75 18 131/76 (94) 99 Intake and Output 03/05/19 03/06/19 19:00 07:00 Intake Total 1000 ml Output Total 0 ml Balance 1000 ml IV Total 1000 ml Output Estimated Blood Loss 0 ml # Voids 4 # Bowel Movements 1 1 Laboratory Tests Test 03/05/19 16:05 03/05/19 19:30 03/05/19 20:13 03/06/19 06:34 Sodium Level 135 MMOL/L (136-145) L 134 MMOL/L (136-145) L 132 MMOL/L (136-145) L Potassium Level 3.8 MMOL/L (3.5-5.1) 4.2 MMOL/L (3.5-5.1) 4.0 MMOL/L (3.5-5.1) Chloride Level 102 MMOL/L (98-107) 102 MMOL/L (98-107) 101 MMOL/L (98-107) Carbon Dioxide Level 23 MMOL/L (21-32) 24 MMOL/L (21-32) 27 MMOL/L (21-32) Anion Gap 10 mmol/L (5-15) 8 mmol/L (5-15) 4 mmol/L (5-15) L Blood Urea Nitrogen 7 mg/dL (7-18) 6 mg/dL (7-18) L 9 mg/dL (7-18) Creatinine 0.8 MG/DL (0.55-1.30) 1.0 MG/DL (0.55-1.30) 0.8 MG/DL (0.55-1.30) Estimat Glomerular Filtration Rate mL/min (>60) mL/min (>60) mL/min (>60) Glucose Level 123 MG/DL (74-106) H 108 MG/DL (74-106) H 96 MG/DL (74-106) Calcium Level 9.1 MG/DL (8.5-10.1) 8.6 MG/DL (8.5-10.1) 8.6 MG/DL (8.5-10.1) Stool Occult Blood Pending White Blood Count 5.0 K/UL (4.8-10.8) Red Blood Count 4.30 M/UL (4.20-5.40) Hemoglobin 12.1 G/DL (12.0-16.0) Hematocrit 36.7 % (37.0-47.0) L Mean Corpuscular Volume 85 FL (80-99) Mean Corpuscular Hemoglobin 28.2 PG (27.0-31.0) Mean Corpuscular Hemoglobin Concent 33.0 G/DL (32.0-36.0) Red Cell Distribution Width 12.3 % (11.6-14.8) Platelet Count 257 K/UL (150-450) Mean Platelet Volume 6.2 FL (6.5-10.1) L Neutrophils (%) (Auto) 55.0 % (45.0-75.0) Lymphocytes (%) (Auto) 27.9 % (20.0-45.0) Monocytes (%) (Auto) 11.0 % (1.0-10.0) H Eosinophils (%) (Auto) 4.9 % (0.0-3.0) H Basophils (%) (Auto) 1.1 % (0.0-2.0) Iron Level 35 ug/dL (50-175) L Total Iron Binding Capacity 322 ug/dL (250-450) Percent Iron Saturation 11 % (15-50) L Unsaturated Iron Binding 287 ug/dL (112-346) Carcinoembryonic Antigen Pending Test 03/06/19 06:36 Ferritin Pending Height (Feet): 5 Height (Inches): 5.00 Weight (Pounds): 155 General Appearance: WD/WN, no apparent distress, alert Cardiovascular: normal rate Respiratory/Chest: normal breath sounds, no respiratory distress Abdominal Exam: normal bowel sounds, non tender, soft Extremities: normal range of motion, non-tender Fracisco Beasley NP Mar 06, 2019 10:06
--- NOTE | 2019-03-06 11:08 | Nephrology Progress Note ---
Assessment/Plan Assessment #hyponatremia- hypovolemic in the setting of diarrhea and decreased PO intake #diarrhea #abdominal pain, nausea and emesis #HTN #GERD - continue d51/2 ns 75cc/hr - avoid thiaziade - Monitor BMP daily now - monitor urine output - monitor BP - EGD today Plan #hyponatremia- hypovolemic in the setting of diarrhea and decreased PO intake #diarrhea #abdominal pain, nausea and emesis #HTN #GERD - D5w 500cc x1 to slow correction - switch d51/2 ns 75cc/hr - avoid thiaziade - urine chemistries - Monitor BMP q4hr - monitor urine output - monitor BP Objective Objective Last 24 Hour Vital Signs Date Time Temp Pulse Resp B/P (MAP) Pulse Ox O2 Delivery O2 Flow Rate FiO2 03/06/19 09:00 Room Air 03/06/19 08:00 97.5 74 18 128/76 (93) 98 03/06/19 07:40 88 03/06/19 04:00 97.5 66 19 129/72 (91) 98 03/06/19 03:57 67 03/06/19 00:00 97.1 77 18 119/72 (88) 96 03/05/19 23:32 79 03/05/19 21:00 Room Air 03/05/19 20:00 97.7 83 18 131/65 (87) 98 03/05/19 19:02 79 03/05/19 16:00 76 03/05/19 16:00 98.1 76 18 125/71 (89) 99 03/05/19 13:50 67 18 119/62 98 Room Air 03/05/19 13:40 69 18 115/57 98 Room Air 03/05/19 13:30 68 17 117/52 99 Room Air 03/05/19 13:20 69 16 117/54 99 Room Air 03/05/19 13:15 67 15 122/54 98 Room Air 03/05/19 13:10 67 16 122/61 100 Simple Mask 6 03/05/19 13:07 97.1 76 14 94/45 100 Simple Mask 6 03/05/19 13:06 74 18 99 03/05/19 13:04 77 16 99 03/05/19 12:00 83 03/05/19 12:00 98.5 75 18 131/76 (94) 99 Intake and Output 03/05/19 03/06/19 18:59 06:59 Intake Total 1000 ml Output Total 0 ml Balance 1000 ml IV Total 1000 ml Output Estimated Blood Loss 0 ml # Voids 4 # Bowel Movements 1 1 Laboratory Tests 03/05/19 16:05: Sodium Level 135L, Potassium Level 3.8, Chloride Level 102, Carbon Dioxide Level 23, Anion Gap 10, Blood Urea Nitrogen 7, Creatinine 0.8, Estimat Glomerular Filtration Rate , Glucose Level 123H, Calcium Level 9.1 03/05/19 19:30: Stool Occult Blood [Pending] 03/05/19 20:13: Sodium Level 134L, Potassium Level 4.2, Chloride Level 102, Carbon Dioxide Level 24, Anion Gap 8, Blood Urea Nitrogen 6L, Creatinine 1.0, Estimat Glomerular Filtration Rate , Glucose Level 108H, Calcium Level 8.6 03/06/19 06:34: Sodium Level 132L, Potassium Level 4.0, Chloride Level 101, Carbon Dioxide Level 27, Anion Gap 4L, Blood Urea Nitrogen 9, Creatinine 0.8, Estimat Glomerular Filtration Rate , Glucose Level 96, Calcium Level 8.6, White Blood Count 5.0, Red Blood Count 4.30, Hemoglobin 12.1, Hematocrit 36.7L, Mean Corpuscular Volume 85, Mean Corpuscular Hemoglobin 28.2, Mean Corpuscular Hemoglobin Concent 33.0, Red Cell Distribution Width 12.3, Platelet Count 257, Mean Platelet Volume 6.2L, Neutrophils (%) (Auto) 55.0, Lymphocytes (%) (Auto) 27.9, Monocytes (%) (Auto) 11.0H, Eosinophils (%) (Auto) 4.9H, Basophils (%) ( Auto) 1.1, Iron Level 35L, Total Iron Binding Capacity 322, Percent Iron Saturation 11L, Unsaturated Iron Binding 287, Carcinoembryonic Antigen [Pending] 03/06/19 06:36: Ferritin 73 Height (Feet): 5 Height (Inches): 5.00 Weight (Pounds): 155 Objective General Appearance: WD/WN, no apparent distress HEENT: normocephalic, atraumatic Neck: non-tender, supple Respiratory/Chest: expiratory wheezing Cardiovascular/Chest: normal rate, regular rhythm Abdomen: normal bowel sounds, non tender, soft, hypoactive bowel sounds Extremities: non-tender, normal inspection Neurologic: alert, oriented x 3 Jose Lopez M.D. Mar 06, 2019 11:08
[2019-03-06 11:50] LABS: APPEARANCE,URINE CLEAR; BILIRUBIN, URINE NEGATIVE (NEGATIVE); COLOR,URINE PALE YELLOW; GLUCOSE, URINE (UA) NEGATIVE (NEGATIVE); KETONES,URINE NEGATIVE (NEGATIVE); LEUKOCYTE ESTERASE ,URINE 2+ (NEGATIVE); NITRITE,URINE NEGATIVE (NEGATIVE); PH,URINE 7 (4.5-8.0); PROTEIN,URINE NEGATIVE (NEGATIVE); UROBILINOGEN,URINE NORMAL MG/DL (0.0-1.0)
[2019-03-06 12:00] VITALS: BP 137/71
--- NOTE | 2019-03-06 13:35 | NUR ---
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 97.1 HR 93 RR 18 B/P 137/71 NA 132 IS: IVF D5NS @ 75ML/HR PROTONIX IV TELE STATUS
[2019-03-06 16:00] VITALS: BP 127/69
--- NOTE | 2019-03-06 16:46 | NUR ---
*-* INSURANCE *-* ALL CLINICALS HAVE BEEN FAXED TO: [facility] TRACKING #[id number] [employer] PROJECT MANAGER: ERIN #[phone] FAX#[phone]
--- NOTE | 2019-03-06 17:18 | General Progress Note ---
Assessment/Plan Status: stable Assessment/Plan: 74 yo female w PMH of HTN and GERD, who presents for nausea and vomiting, with hyponatremia found on labs. # Hyponatremia, hypovolemic from n/v - ivf: ns @ 50; to be changed per nephrology reqs - correct 2 units per hour - q4h bmp-> ok for daily chem panel - nephrology consult - XR abd - no thiazide # Abd pain # Nausea vomiting - CT a/p last visit showed hernia - GI consult - EGD: gastritis, f/u path for barrets esophagus # HTN - cont amlodipine # GERD - ppi - pepcid prn # Full code Subjective Date patient seen: Mar 06, 2019 Time patient seen: 12:00 Allergies: Coded Allergies: No Known Allergies (Unverified , 01/03/17) All Systems: reviewed and negative except above Subjective s/p egd tolerating diet with no n, v complains of a dull pin on her left flank, non tedner Objective Last 24 Hour Vital Signs Date Time Temp Pulse Resp B/P (MAP) Pulse Ox O2 Delivery O2 Flow Rate FiO2 03/06/19 16:00 97.0 71 18 127/69 (88) 99 03/06/19 15:41 67 03/06/19 12:00 97.1 73 18 137/71 (93) 100 03/06/19 11:41 75 03/06/19 09:00 Room Air 03/06/19 08:00 97.5 74 18 128/76 (93) 98 03/06/19 07:40 88 03/06/19 04:00 97.5 66 19 129/72 (91) 98 03/06/19 03:57 67 03/06/19 00:00 97.1 77 18 119/72 (88) 96 03/05/19 23:32 79 03/05/19 21:00 Room Air 03/05/19 20:00 97.7 83 18 131/65 (87) 98 03/05/19 19:02 79 Intake and Output 03/05/19 03/06/19 19:00 07:00 Intake Total 1000 ml Output Total 0 ml Balance 1000 ml IV Total 1000 ml Output Estimated Blood Loss 0 ml # Voids 4 # Bowel Movements 1 1 Laboratory Tests 03/05/19 19:30: Stool Occult Blood Negative 03/05/19 20:13: Sodium Level 134L, Potassium Level 4.2, Chloride Level 102, Carbon Dioxide Level 24, Anion Gap 8, Blood Urea Nitrogen 6L, Creatinine 1.0, Estimat Glomerular Filtration Rate , Glucose Level 108H, Calcium Level 8.6 03/06/19 06:34: Sodium Level 132L, Potassium Level 4.0, Chloride Level 101, Carbon Dioxide Level 27, Anion Gap 4L, Blood Urea Nitrogen 9, Creatinine 0.8, Estimat Glomerular Filtration Rate , Glucose Level 96, Calcium Level 8.6, White Blood Count 5.0, Red Blood Count 4.30, Hemoglobin 12.1, Hematocrit 36.7L, Mean Corpuscular Volume 85, Mean Corpuscular Hemoglobin 28.2, Mean Corpuscular Hemoglobin Concent 33.0, Red Cell Distribution Width 12.3, Platelet Count 257, Mean Platelet Volume 6.2L, Neutrophils (%) (Auto) 55.0, Lymphocytes (%) (Auto) 27.9, Monocytes (%) (Auto) 11.0H, Eosinophils (%) (Auto) 4.9H, Basophils (%) ( Auto) 1.1, Iron Level 35L, Total Iron Binding Capacity 322, Percent Iron Saturation 11L, Unsaturated Iron Binding 287, Carcinoembryonic Antigen [Pending] 03/06/19 06:36: Ferritin 73 03/06/19 11:35: Urine Color Pale yellow, Urine Appearance Clear, Urine pH 7, Urine Specific [place] 1.005, Urine Protein Negative, Urine Glucose (UA) Negative, Urine Ketones Negative, Urine Blood Negative, Urine Nitrite Negative, Urine Bilirubin Negative, Urine Urobilinogen Normal, Urine Leukocyte Esterase 2+H, Urine RBC 0-2 , Urine WBC 2-4, Urine Squamous Epithelial Cells Few, Urine Bacteria Occasional Height (Feet): 5 Height (Inches): 5.00 Weight (Pounds): 155 Objective GEN: WDWN, NAD, Alert ad Oriented HEENT: PERRLA, EOMI, no icterus NECK: soft non tender CV: RRR, no m/r/g, no jvd RESP: No w/r/c, CTAB ABD: soft, bowel sounds present, non tender to palpation EXT: non tender, normal muscle bulk NEURO: grosslty normal, no tremors Leonela Mcmahon DO Mar 06, 2019 17:18
--- NOTE | 2019-03-06 19:35 | NUR ---
HAND-OFF: Report given to ALINE Johnson. Patient in stable condition.
--- NOTE | 2019-03-06 19:45 | NUR ---
HAND-OFF: Report given to Kathleen MIRELES. Endorsed plan of care.
[2019-03-06 20:00] VITALS: BP 131/63
[2019-03-07] VITALS: BP 140/73
[2019-03-07 04:00] VITALS: BP 133/70
[2019-03-07] MEDS: D5 1/2NS 1,000 ML IV SCH (04:25)
--- NOTE | 2019-03-07 05:00 | NUR ---
NURSE NOTES: patient IV blew. patient hard stick. IV attempted by several nurses, none were able to get one in. patient is refusing an IV at this point. Dr. napier was called. waiting for his call back. will report to day shift nurse.
--- NOTE | 2019-03-07 07:03 | NUR ---
HAND-OFF: Report given to savage rubio. patient stable.
[2019-03-07 07:24] LABS: EOSINOPHILS % (AUTO) 5.5 % (0.0-3.0); HEMATOCRIT 35.9 % (37.0-47.0); HEMOGLOBIN 12.2 G/DL (12.0-16.0); LYMPHOCYTES % (AUTO) 21.9 % (20.0-45.0); MEAN CORPUSCULAR VOLUME 83 FL (80-99); MONOCYTES % (AUTO) 9.4 % (1.0-10.0); NEUTROPHILS % (AUTO) 62.1 % (45.0-75.0); PLATELET COUNT 260 K/UL (150-450); RED BLOOD COUNT 4.32 M/UL (4.20-5.40); RED CELL DISTRIBUTION WIDTH 11.8 % (11.6-14.8)
--- NOTE | 2019-03-07 07:24 | NUR ---
NURSE NOTES: Report received from ALINE Wang. Pt shows no signs of distress, A+Ox4, denies pain/SOB. Respirations are even and unlabored on room air. Pt has no IV site. Refusing IV insertion at this time. Previous nurse left message with Dr. Mcmahon regarding no IV access. Bed is at lowest position, brakes engaged, siderails x2, bed alarm on, and call light within reach. Pt is in stable condition at this time; will continue to monitor.
[2019-03-07 07:26] LABS: BLOOD UREA NITROGEN 5 mg/dL (7-18); CALCIUM 9.2 MG/DL (8.5-10.1); CREATININE 0.8 MG/DL (0.55-1.30)
[2019-03-07 07:36] LABS: ANION GAP 4 mmol/L (5-15); CARBON DIOXIDE 28 MMOL/L (21-32); CHLORIDE 101 MMOL/L (98-107); SODIUM 132 MMOL/L (136-145)
[2019-03-07 08:00] VITALS: BP 125/75
--- NOTE | 2019-03-07 10:00 | NUR ---
PT EVALUATION NOTE Patient seen for initial evaluation, see complete evaluation for details. Patient presents with generalized weakness, impaired balance which affects safety with ambulation. Patient able to ambulate 150 ft however requires CGA for safety due to impaired balance. Patient is independent with bed mobility and transfers. Patient will benefit from skilled inpatient PT intervention to increase strength, improve balance and safety for improved functional mobility. Recommend discharge home with home PT once medically cleared by MD. Patient may benefit from SPC for ambulation depending on patient's progress. Addendum: 03/07/19 at 1224 by DEWAYNE GUY PT Amended: Links added.
[2019-03-07] MEDS ORDERED: Tubing IV Secondary IV ONE (10:46)
[2019-03-07] MEDS ORDERED: NS 275ml ONE (10:46)
[2019-03-07] MEDS ORDERED: D5 1/2NS 1000ml IV ONE (10:46)
--- NOTE | 2019-03-07 11:07 | GI Progress Note ---
Assessment/Plan Problems: (1) Dysuria ICD Codes: R30.0 - Dysuria SNOMED: 16520792 (2) Yuan's esophagus ICD Codes: K22.70 - Yuan's esophagus without dysplasia SNOMED: 830521781 (3) GERD (gastroesophageal reflux disease) ICD Codes: K21.9 - Gastro-esophageal reflux disease without esophagitis SNOMED: 864933131 (4) Gastritis ICD Codes: K29.70 - Gastritis, unspecified, without bleeding SNOMED: 2321867 Qualifiers: Qualified Codes: K29.00 - Acute gastritis without bleeding Status: unchanged Status Narrative Discussed with Dr. Arriaza. Assessment/Plan SUMMARY OF FINDINGS: 1. Gastritis, status post biopsy. 2. 3 cm hiatal hernia. 3. Possible short-segment Yuan's, status post biopsy. OB stool negative iron deficiency Dysuria RECOMMENDATIONS: regular diet electrolyte correction ppi venofer zofran prn follow lab check UA, negative follow up biopsy results and treat accordingly. outpatient follow up for GERD The patient was seen and examined at bedside and all new and available data was reviewed in the patients chart. I agree with the above findings, impression and plan. (Patient seen earlier today. Signature stamp does not reflect patient encounter time.). - Frederick Arriaza MD Subjective Gastrointestinal/Abdominal: Reports: no symptoms Subjective painful urination denies any abdominal pain Objective Last 24 Hour Vital Signs Date Time Temp Pulse Resp B/P (MAP) Pulse Ox O2 Delivery O2 Flow Rate FiO2 03/07/19 09:00 Room Air 03/07/19 08:00 71 03/07/19 08:00 98.1 75 18 125/75 (92) 97 03/07/19 04:00 98.8 81 18 133/70 (91) 97 03/07/19 04:00 55 03/07/19 00:00 96.9 70 18 140/73 (95) 97 03/06/19 23:45 64 03/06/19 21:00 Room Air 03/06/19 20:00 97.7 76 18 131/63 (85) 98 03/06/19 20:00 74 03/06/19 16:00 97.0 71 18 127/69 (88) 99 03/06/19 15:41 67 03/06/19 12:00 97.1 73 18 137/71 (93) 100 03/06/19 11:41 75 Intake and Output 03/06/19 03/07/19 19:00 07:00 Intake Total 1665 ml Balance 1665 ml Intake Oral 840 ml IV Total 825 ml # Voids 5 3 Laboratory Tests Test 03/06/19 11:35 03/07/19 06:43 Urine Color Pale yellow Urine Appearance Clear Urine pH 7 (4.5-8.0) Urine Specific [place] 1.005 (1.005-1.035) Urine Protein Negative (NEGATIVE) Urine Glucose (UA) Negative (NEGATIVE) Urine Ketones Negative (NEGATIVE) Urine Blood Negative (NEGATIVE) Urine Nitrite Negative (NEGATIVE) Urine Bilirubin Negative (NEGATIVE) Urine Urobilinogen Normal MG/DL (0.0-1.0) Urine Leukocyte Esterase 2+ (NEGATIVE) H Urine RBC 0-2 /HPF (0 - 2) Urine WBC 2-4 /HPF (0 - 2) Urine Squamous Epithelial Cells Few /LPF (NONE/OCC) Urine Bacteria Occasional /HPF (NONE) White Blood Count 5.0 K/UL (4.8-10.8) Red Blood Count 4.32 M/UL (4.20-5.40) Hemoglobin 12.2 G/DL (12.0-16.0) Hematocrit 35.9 % (37.0-47.0) L Mean Corpuscular Volume 83 FL (80-99) Mean Corpuscular Hemoglobin 28.3 PG (27.0-31.0) Mean Corpuscular Hemoglobin Concent 34.1 G/DL (32.0-36.0) Red Cell Distribution Width 11.8 % (11.6-14.8) Platelet Count 260 K/UL (150-450) Mean Platelet Volume 6.0 FL (6.5-10.1) L Neutrophils (%) (Auto) 62.1 % (45.0-75.0) Lymphocytes (%) (Auto) 21.9 % (20.0-45.0) Monocytes (%) (Auto) 9.4 % (1.0-10.0) Eosinophils (%) (Auto) 5.5 % (0.0-3.0) H Basophils (%) (Auto) 1.0 % (0.0-2.0) Sodium Level 132 MMOL/L (136-145) L Potassium Level 4.0 MMOL/L (3.5-5.1) Chloride Level 101 MMOL/L (98-107) Carbon Dioxide Level 28 MMOL/L (21-32) Anion Gap 4 mmol/L (5-15) L Blood Urea Nitrogen 5 mg/dL (7-18) L Creatinine 0.8 MG/DL (0.55-1.30) Estimat Glomerular Filtration Rate mL/min (>60) Glucose Level 94 MG/DL (74-106) Calcium Level 9.2 MG/DL (8.5-10.1) Height (Feet): 5 Height (Inches): 5.00 Weight (Pounds): 155 General Appearance: WD/WN, no apparent distress, alert Cardiovascular: normal rate Respiratory/Chest: normal breath sounds, no respiratory distress Abdominal Exam: normal bowel sounds, non tender, soft Extremities: normal range of motion, non-tender Fracisco Beasley NP Mar 07, 2019 11:07
[2019-03-07 12:00] VITALS: BP 146/79
--- NOTE | 2019-03-07 12:00 | NUR ---
NURSE NOTES: Made Dr. Mcmahon aware of patient refusal of IV and sodium level of 122. aware and said she is planning to discharge patient today.
[2019-03-07] MEDS ORDERED: OMEPRAZOLE40 M1 ORAL (12:52)
--- NOTE | 2019-03-07 12:55 | Discharge Instructions ---
Discharge Instructions Discharge Instructions Follow up with: follow up with associate loan officer, Dr. Faria Services at Discharge: home health services Diet: other - avoid acidic foods such as caffeine, alcohol, tomato, lemon Resume Normal Activity?: Yes Activity: resume normal activities For Surgical Patients Contact your physician for: bleeding, pain, redness, swelling For Congestive Heart Failure Reminder Report to your physician any weight gain of 5 pounds or more in one week. Leonela Mcmahon DO Mar 07, 2019 12:54
--- NOTE | 2019-03-07 14:55 | Discharge Summary ---
Discharge Summary Hospital Course Date of Admission Mar 04, 2019 at 01:32 Date of Discharge 03/07/18 Admitting Diagnosis hyponatremia Reason for Hospitalization: abd pain and hyponatremia HPI Jennifer Harrison is a 74 year old female who was admitted on Mar 04, 2019 at 01:32 for Hyponatremia Consultations Nephrology and GI Procedures EGD Hospital Course 74 yo female w PMH of HTN and GERD, who presents for nausea and vomiting, with hyponatremia found on labs. She was placed on IVF for sodium correction and kep NPO for EGD which showed: 1. Gastritis, status post biopsy. 2. 3 cm hiatal hernia. 3. Possible short-segment Yuan's, status post biopsy. Her abd pain resolved and she was sent home with home health, with protonix called into pharmacy, and instructed to follow up with GI. # Hyponatremia, hypovolemic from n/v - ivf: ns @ 50; to be changed per nephrology reqs - correct 2 units per hour - q4h bmp-> ok for daily chem panel - nephrology consult - XR abd - no thiazide # Abd pain # Nausea vomiting - CT a/p last visit showed hernia - GI consult - EGD: gastritis, f/u path for barrets esophagus # HTN - cont amlodipine # GERD - ppi - pepcid prn # Full code Discharge Medications New Medications: Omeprazole (Omeprazole) 40 Mg Capsule. 40 MG ORAL DAILY for 30 Days, #30 CAP 0 Refills Continued Medications: Calcium Carbonate/Vitamin D3 (Oysco 500+D Tablet) 1 Each Tablet 1 EACH PO, TAB (This prescription has been renewed) Lisinopril* (Lisinopril*) 10 Mg Tablet 10 MG ORAL BID, TAB (This prescription has been renewed) Discontinued Medications: Omeprazole (Omeprazole) 20 Mg Capsule. 20 MG ORAL DAILY, CAP Discharge Condition Upon Discharge: stable Discharge Disposition Patient was discharged to home w hh Discharge Diagnoses: (1) Gastritis (2) Hyponatremia (3) HTN (hypertension) Discharge Instructions Discharge Instructions Follow up with: follow up with store associate, Dr. Faria Services Upon Discharge: home health services Activity: resume normal activities For Surgical Patients Contact your physician for: bleeding, pain, redness, swelling Leonela Mcmahon DO Mar 07, 2019 14:55
--- NOTE | 2019-03-07 15:00 | NUR ---
NURSE NOTES: Spoke with Adrienne Armando CM. She said she is corresponding with home health service and it is okay to discharge patient.
--- NOTE | 2019-03-07 15:20 | NUR ---
NURSE NOTES: Discharge paperwork printed and signed. Patient information printed in Nepali and instructions translated to patient by JACK Mendes. Although, patient understands some Swedish. All patient questions answered. Pt understands medication list. Belongings leaving will patient and list signed. Pt going home with clothing, reading glasses, both dentures, and phone/computer systems support specialist. Wristband and front desk receptionist removed. Pt in stable condition. Patient discharged safely from floor via wheelchair with and other family members.
--- NOTE | 2019-03-07 16:36 | NUR ---
*-* DISCHARGE PLANNING *-* PATIENT HAS BEEN REFERRED TO: DON HARTMAN: ERIN P: [phone] F: [phone] TO LOOK FOR HOME HEALTH FOR THIS PATIENT.
[2019-03-07] MEDS ORDERED: Iron Sucrose 100 MG in NS 55 ML IV SCH (21:00)
== END 2019-03-07 15:20 | disposition home health service (06) | DRG 392 ==
LOC: EMR 23:59 → 2E 03-04 01:32 → EDBEDREQ 03-04 02:08 → 2E 03-04 02:35
PROC: 0DB38ZX Excision of Lower Esophagus, Via Natural or Artificial Opening Endoscopic, Diagnostic (ICD-10-PCS; principal; 2019-03-05 12:47)
PROC: 0DB78ZX Excision of Stomach, Pylorus, Via Natural or Artificial Opening Endoscopic, Diagnostic (ICD-10-PCS; principal; 2019-03-05 12:47)
DX: K29.70 Gastritis, unspecified, without bleeding (principal); E87.1 Hypo-osmolality and hyponatremia; K21.9 Gastro-esophageal reflux disease without esophagitis; K44.9 Diaphragmatic hernia without obstruction or gangrene; K22.70 Barrett's esophagus without dysplasia; I10 Essential (primary) hypertension; R19.7 Diarrhea, unspecified
CPT/HCPCS: 36415; 71045; 74018; 80048; 80053; 81001; 81003; 82248; 82270; 82330; 82378; 82728; 83540; 83550; 83690; 83935; 84133; 84300; 84443; 84484; 85025; 85610; 85730; 87081; 87086; 93005; 93970; 96361; 96374; 96375; 99285; J2405

== ENCOUNTER 2019-04-21 23:27 | Inpatient (IN) | payer MEDICARE, MEDICAID ==
[~2019-04-21] VITALS: Ht 154.9 cm; Wt 63.1 kg
[~2019-04-21 23:27] MED LIST changes: +CIPROFLOXACIN500 M2 ORAL; +OMEPRAZOLE40 M1 ORAL; +OYSCO 500+D TA1 EAC1 PO
[2019-04-21] MEDS ORDERED: ASPIR 8181 MG ORAL (23:42)
--- NOTE | 2019-04-21 23:45 | NUR ---
ED Nurse Note: Pt walked in c/o n/v and high blood pressure, pain on RT flank. Pt stated she feels dizzy, since 04/19. AO4. NAD. VSS. ACCOMPANIED BY FAMILY MEMBER.
--- NOTE | 2019-04-22 | NUR ---
ED Nurse Note: iv access established. blood collected; sent down to lab.
[2019-04-22 00:03] VITALS: BP 136/73
[2019-04-22] MEDS ORDERED: Meclizine 25mg tab ORAL ONE (00:15)
[2019-04-22 00:27] LABS: EOSINOPHILS % (AUTO) 1.6 % (0.0-3.0); HEMATOCRIT 35.4 % (37.0-47.0); HEMOGLOBIN 12.2 G/DL (12.0-16.0); LYMPHOCYTES % (AUTO) 27.8 % (20.0-45.0); MEAN CORPUSCULAR VOLUME 82 FL (80-99); MONOCYTES % (AUTO) 13.5 % (1.0-10.0); NEUTROPHILS % (AUTO) 56.1 % (45.0-75.0); PLATELET COUNT 247 K/UL (150-450); RED CELL DISTRIBUTION WIDTH 11.7 % (11.6-14.8)
[2019-04-22 00:34] LABS: INR 0.9 (0.9-1.1)
[2019-04-22 00:44] LABS: ANION GAP 12 mmol/L (5-15); BLOOD UREA NITROGEN 12 mg/dL (7-18); CARBON DIOXIDE 22 MMOL/L (21-32); CHLORIDE 92 MMOL/L (98-107); CREATININE 0.8 MG/DL (0.55-1.30); POTASSIUM 3.6 MMOL/L (3.5-5.1); SODIUM 126 MMOL/L (136-145)
[2019-04-22 00:58] LABS: ALANINE AMINOTRANSFERASE 20 U/L (12-78); ALBUMIN 3.9 G/DL (3.4-5.0); ALBUMIN/GLOBULIN RATIO 1.1 (1.0-2.7); ALKALINE PHOSPHATASE 87 U/L (46-116); ASPARTATE AMINO TRANSFERASE 22 U/L (15-37); BILIRUBIN,TOTAL 0.5 MG/DL (0.2-1.0)
[2019-04-22] MEDS ORDERED: Acetaminophen 500mg (ES) tab ORAL ONE (01:00)
--- NOTE | 2019-04-22 01:07 | NUR ---
ED Nurse Note: urine collected; sent down to lab.
--- NOTE | 2019-04-22 01:09 | NUR ---
ED Nurse Note: pt down to ct.
--- NOTE | 2019-04-22 01:15 | NUR ---
ED Nurse Note: PT BACK FROM IMAGING
[2019-04-22 01:17] LABS: APPEARANCE,URINE CLEAR; BILIRUBIN, URINE NEGATIVE (NEGATIVE); COLOR,URINE PALE YELLOW; GLUCOSE, URINE (UA) NEGATIVE (NEGATIVE); KETONES,URINE NEGATIVE (NEGATIVE); LEUKOCYTE ESTERASE ,URINE 2+ (NEGATIVE); NITRITE,URINE NEGATIVE (NEGATIVE); PH,URINE 7 (4.5-8.0); PROTEIN,URINE NEGATIVE (NEGATIVE); UROBILINOGEN,URINE NORMAL MG/DL (0.0-1.0)
--- NOTE | 2019-04-22 02:00 | NUR ---
ED Nurse Note: FOLLOWED UP WITH LAB REGARDING URINE SAMPLE; LAB PROCESSING RESULTS
--- NOTE | 2019-04-22 02:02 | Diagnostic Imaging Report ---
Indication: Dizziness Technique: Contiguous 5 mm thick transaxial imaging of the head obtained in a Siemens Sensation [address] scanner. Soft tissue and bone windows generated. Automatic Exposure Control was utilized. Total Dose length Product (DLP): [address] Dose Index Volume (CTDIvol): 57.8 mGy Comparison: none Findings: There is a small cystic focus just lateral to the right midbrain within the temporal lobe with an adjacent calcification unchanged from the last study. The size and configuration of the cortical sulci, basal cisterns, and ventricles are within normal limits for age. There is no mass effect, midline shift, or edema identified. There is no evidence of acute hemorrhage extra-axial fluid collections. The bones and soft tissues are unremarkable. Impression: No mass effect, edema or acute bleed. Cystic/calcified focus right posterior medial temporal lobe. 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 [facility] has communicated the preliminary results to the Emergency Department. Their findings are largely concordant with this report. The CT scanner at [facility] is accredited by the [employer] and the scans are performed using dose optimization techniques as appropriate to a performed exam including Automatic Exposure control.
[2019-04-22 03:00] VITALS: BP 128/71
--- NOTE | 2019-04-22 03:23 | NUR ---
ED Nurse Note: REPORT GIVEN TO ALINE QUINTERO. PATIENT TO BE ADMITTED TO [facility] UNDER THE CARE OF MD DAVID.
--- NOTE | 2019-04-22 03:35 | NUR ---
TRANSFER TO FLOOR: Patient transferred to [facility] as ordered, per MD DAVID. Report given to INGRID MIRELES. PATIENT IN STABLE CONDITION. BELONGINGS LIST COMPLETED WITH RECEIVING RN.
--- NOTE | 2019-04-22 03:57 | NUR ---
NURSE NOTES: Patient arrived 033 in unit, ambulatory but weak. VSS. Paged Dr Cameron for admission orders.
--- NOTE | 2019-04-22 04:45 | NUR ---
NURSE NOTES: Spoke with Dr Cameron, gave SBAR, said he will put in admission orders himself.
--- NOTE | 2019-04-22 06:26 | Emergency Room Report ---
History of Present Illness General Chief Complaint: Hypertension Source: Patient Present Illness HPI Patient is a 74 year old female who presented for increased dizziness. She reports difficulty with balance and spinning sensation. She has had similar episodes in the past. Prior history of hypertension. She reports feeling somewhat anxious. She denies prior thyroid disease. No recent fever. Denies diarrhea or vomiting. No recent fall. Moderate occipital headache described as a throbbing sensation. Denies sudden onset or neck stiffness. Allergies: Coded Allergies: No Known Allergies (Unverified , 01/03/17) Patient History Past Medical History: see triage record Last Menstrual Period: na Reviewed Nursing Documentation: PMH: Agreed; PSxH: Agreed Nursing Documentation-PMH Hx Cardiac Problems: Yes Hx Hypertension: Yes Hx Cancer: No Hx Gastrointestinal Problems: Yes - GERD Hx Neurological Problems: No Review of Systems All Other Systems: negative except mentioned in HPI Physical Exam Vital Signs Date Time Temp Pulse Resp B/P (MAP) Pulse Ox O2 Delivery O2 Flow Rate FiO2 04/21/19 23:36 98.1 86 136/73 (94) 98 Room Air 04/22/19 00:03 22 Sp02 EP Interpretation: reviewed, normal General Appearance: normal inspection, well appearing, no apparent distress, alert, GCS 15 Head: atraumatic Eyes: bilateral eye PERRL, bilateral eye other - nystagmus with left gaze ENT: normal ENT inspection, hearing grossly normal, normal voice Neck: normal inspection, full range of motion, supple, no bony tend Respiratory: normal inspection, lungs clear, normal breath sounds, no respiratory distress, no retraction, no wheezing Cardiovascular #1: regular rate, rhythm, no edema Gastrointestinal: normal inspection, normal bowel sounds, non tender, soft, no guarding, no hernia Genitourinary: no CVA tenderness Musculoskeletal: normal inspection, back normal, normal range of motion Neurologic: normal inspection, alert, oriented x3, responsive, telecommunications engineer III-XII nml as tested, speech normal Psychiatric: normal inspection, judgement/insight normal, mood/affect normal Medical Decision Making Diagnostic Impression: Primary Impression: Hypertension Additional Impression: Hyponatremia ER Course Patient presented for dizziness and vomiting. Differential diagnosis included but was not limited to BPPV, labyrinthitis, hyponatremia, orthostatic hypotension, myocardial infarction among others. Patient had similar symptoms in the past. Her blood pressure had improved without medications. Patient was given Zofran as well as meclizine. Laboratory testing showed significant hyponatremia. CT head showed no acute intracranial abnormality see radiology report for full details. Dr. Per Dougherty was contacted for inpatient management due to panel physican. Labs Test 04/22/19 00:00 04/22/19 01:00 White Blood Count 6.0 K/UL (4.8-10.8) Red Blood Count 4.30 M/UL (4.20-5.40) Hemoglobin 12.2 G/DL (12.0-16.0) Hematocrit 35.4 % (37.0-47.0) Mean Corpuscular Volume 82 FL (80-99) Mean Corpuscular Hemoglobin 28.4 PG (27.0-31.0) Mean Corpuscular Hemoglobin Concent 34.6 G/DL (32.0-36.0) Red Cell Distribution Width 11.7 % (11.6-14.8) Platelet Count 247 K/UL (150-450) Mean Platelet Volume 6.7 FL (6.5-10.1) Neutrophils (%) (Auto) 56.1 % (45.0-75.0) Lymphocytes (%) (Auto) 27.8 % (20.0-45.0) Monocytes (%) (Auto) 13.5 % (1.0-10.0) Eosinophils (%) (Auto) 1.6 % (0.0-3.0) Basophils (%) (Auto) 1.0 % (0.0-2.0) Prothrombin Time 9.4 SEC (9.30-11.50) Prothromb Time International Ratio 0.9 (0.9-1.1) Activated Partial Thromboplast Time 25 SEC (23-33) Sodium Level 126 MMOL/L (136-145) Potassium Level 3.6 MMOL/L (3.5-5.1) Chloride Level 92 MMOL/L (98-107) Carbon Dioxide Level 22 MMOL/L (21-32) Anion Gap 12 mmol/L (5-15) Blood Urea Nitrogen 12 mg/dL (7-18) Creatinine 0.8 MG/DL (0.55-1.30) Estimat Glomerular Filtration Rate mL/min (>60) Glucose Level 102 MG/DL (74-106) Calcium Level 9.0 MG/DL (8.5-10.1) Total Bilirubin 0.5 MG/DL (0.2-1.0) Aspartate Amino Transf (AST/SGOT) 22 U/L (15-37) Alanine Aminotransferase (ALT/SGPT) 20 U/L (12-78) Alkaline Phosphatase 87 U/L (46-116) Troponin I 0.000 ng/mL (0.000-0.056) Total Protein 7.6 G/DL (6.4-8.2) Albumin 3.9 G/DL (3.4-5.0) Globulin 3.7 g/dL Albumin/Globulin Ratio 1.1 (1.0-2.7) Thyroid Stimulating Hormone (TSH) 1.597 uiU/mL (0.358-3.740) Urine Color Pale yellow Urine Appearance Clear Urine pH 7 (4.5-8.0) Urine Specific [place] 1.005 (1.005-1.035) Urine Protein Negative (NEGATIVE) Urine Glucose (UA) Negative (NEGATIVE) Urine Ketones Negative (NEGATIVE) Urine Blood Negative (NEGATIVE) Urine Nitrite Negative (NEGATIVE) Urine Bilirubin Negative (NEGATIVE) Urine Urobilinogen Normal MG/DL (0.0-1.0) Urine Leukocyte Esterase 2+ (NEGATIVE) Urine RBC 0-2 /HPF (0 - 2) Urine WBC 5-10 /HPF (0 - 2) Urine Squamous Epithelial Cells Moderate /LPF (NONE/OCC) Urine Bacteria Few /HPF (NONE) Urine Random Sodium 20 mmol/L (20-110) EKG Diagnostic Results Rate: normal Rhythm: NSR ST Segments: no acute changes Last Vital Signs Date Time Temp Pulse Resp B/P (MAP) Pulse Ox O2 Delivery O2 Flow Rate FiO2 04/22/19 04:06 Room Air 04/22/19 03:35 98.1 88 18 128/71 99 Status: unchanged Disposition: ADMITTED INPATIENT Condition: Stable Referrals: [facility],REFERRING (PCP) Hosea Mendoza MD Apr 22, 2019 06:26
[2019-04-22 06:58] LABS: BASOPHILS % (AUTO) 0.8 % (0.0-2.0); EOSINOPHILS % (AUTO) 2.1 % (0.0-3.0); HEMATOCRIT 33.8 % (37.0-47.0); HEMOGLOBIN 11.4 G/DL (12.0-16.0); MEAN CORPUSCULAR VOLUME 83 FL (80-99); MONOCYTES % (AUTO) 11.7 % (1.0-10.0); NEUTROPHILS % (AUTO) 51.5 % (45.0-75.0); PLATELET COUNT 227 K/UL (150-450); RED BLOOD COUNT 4.07 M/UL (4.20-5.40); RED CELL DISTRIBUTION WIDTH 11.8 % (11.6-14.8); WHITE BLOOD COUNT 4.8 K/UL (4.8-10.8)
[2019-04-22 07:15] LABS: ANION GAP 6 mmol/L (5-15); BLOOD UREA NITROGEN 9 mg/dL (7-18); CALCIUM 8.7 MG/DL (8.5-10.1); CARBON DIOXIDE 27 MMOL/L (21-32); CHLORIDE 95 MMOL/L (98-107); CREATININE 0.9 MG/DL (0.55-1.30); SODIUM 128 MMOL/L (136-145)
[2019-04-22 08:00] VITALS: BP 99/56
--- NOTE | 2019-04-22 08:20 | NUR ---
NURSE NOTES: Patient is alert and oriented. Patient reports feeling weak. Patient is near nurse's station. Side rails are upx2, bed is locked, bed alarm is on, and call light is within reach. Will continue to monitor.
[2019-04-22] MEDS: Aspirin EC 81mg tab ORAL SCH (09:00)
[2019-04-22] MEDS: Lisinopril 20mg tab ORAL SCH ×2 (09:00→17:13)
[2019-04-22] MEDS: Docusate 100mg cap ORAL SCH ×2 (09:00→21:36)
[2019-04-22] MEDS: Heparin 5000 units/ml inj SUBQ SCH ×3 (09:00→21:34)
--- NOTE | 2019-04-22 10:29 | History and Physical ---
History of Present Illness General Date patient seen: Apr 22, 2019 Reason for Hospitalization: Hypertension Present Illness HPI 74-year-old female with history of hypertension, GERD, Yuan's esophagus, gastritis and hiatal hernia who presented to the emergency room with the chief complaint of high blood pressure. Patient has been having nausea and vomiting. She has been mainly vomiting food contents. Denies any blood in her vomitus. She denies any diarrhea but has abdominal pain were her gallbladder is and was told that she had gallstones in the past. She denies chest pain, shortness of breath, palpitations, orthopnea, dizziness lightheadedness. No sick contacts. Of note, patient was admitted to [facility] in February with similar complaints and underwent an EGD which showed gastritis and Yuan' s esophagus. Biopsies were taken and she was supposed to follow-up with Dr. Arriaza from GI. She was also managed for hypovolemic hyponatremia during her previous hospitalization which responded to fluid resuscitation. In the ER she was found to be hyponatremic and admitted to the hospital. Past medical and surgical history: GERD, hypertension, Yuan's esophagus, gastritis, hiatal hernia Family history: High blood pressure Social history: Denies tobacco, alcohol, illicit drug use Allergies: Coded Allergies: No Known Allergies (Unverified , 01/03/17) Medication History Scheduled Aspirin* (Aspir 81*), 81 MG ORAL DAILY, (Reported) Lisinopril* (Lisinopril*), 10 MG ORAL BID, (Reported) Omeprazole (Omeprazole), 40 MG ORAL DAILY Miscellaneous Medications Calcium Carbonate/Vitamin D3 ([place] 500+D Tablet), 1 EACH PO, (Reported) Patient History Healthcare decision maker Resuscitation status Advanced Directive on File Review of Systems Constitutional: Denies: no symptoms, see HPI, chills, sweats, fever, malaise, weakness, other Eye: Denies: no symptoms, see HPI, eye pain, blurred vision, tearing, double vision, nose pain, nose congestion, acuity changes, discharge, other ENT: Denies: no symptoms, see HPI, ear pain, ear discharge, nose pain, nose congestion, throat pain, throat swelling, mouth pain, hearing loss, nasal discharge, other Respiratory: Denies: no symptoms, see HPI, cough, orthopnea, shortness of breath, stridor, wheezing, BAILON, sputum, other Cardiovascular: Denies: no symptoms, see HPI, chest pain, edema, palpitations, syncope, PND, other Gastrointestinal: Reports: abdominal pain, nausea, vomiting; Denies: no symptoms, see HPI, constipation, diarrhea, melena, hematemesis, other Genitourinary: Denies: no symptoms, see HPI, discharge, dysuria, frequency, hematuria, pain, retention, incontinence, urgency, vag bleed/dc, other Musculoskeletal: Denies: no symptoms, see HPI, back pain, gout, joint pain, joint swelling, muscle pain, muscle stiffness, other Skin: Denies: no symptoms, see HPI, rash, change in color, change in hair/nails , dryness, lesions, other Psychiatric: Denies: no symptoms, see HPI, prior hx, anxiety, depressed feelings, emotional problems, SI, HI, hallucinations, other Neurological: Denies: no symptoms, see HPI, headache, numbness, paresthesia, seizure, tingling, tremors, focal weakness, syncope, dizziness, other Endocrine: Denies: no symptoms, see HPI, excessive sweating, flushing, intolerance to temperature, increased thirst, increased urine, unexplained weight loss, other Hematologic/Lymphatic: Denies: no symptoms, see HPI, anemia, blood clots, easy bleeding, easy bruising, swollen glands, diathesis, other Physical Exam Physical Exam Narrative General Appearance: normal inspection, well appearing, no apparent distress, alert, awake Head: atraumatic ENT: normal ENT inspection, hearing grossly normal, normal voice Neck: normal inspection, full range of motion, supple, no bony tend Respiratory: normal inspection, lungs clear, normal breath sounds, no respiratory distress, no retraction, no wheezing Cardiovascular : regular rate, rhythm, no m/r/g, no edema Gastrointestinal: RUQ tenderness, soft, non distended, normal bowel sounds Genitourinary: no CVA tenderness Musculoskeletal: normal inspection, back normal, normal range of motion Neurologic: normal inspection, alert, oriented x3, responsive, psychiatry physician III-XII nml as tested, speech normal Psychiatric: normal inspection, judgement/insight normal, mood/affect normal Skin: No ulcers or rashes Last 24 Hour Vital Signs Date Time Temp Pulse Resp B/P (MAP) Pulse Ox O2 Delivery O2 Flow Rate FiO2 04/22/19 09:00 99/56 04/22/19 08:30 Room Air 04/22/19 04:06 Room Air 04/22/19 03:35 98.1 88 18 128/71 99 Room Air 04/22/19 03:00 98.1 88 18 128/71 99 Room Air 04/22/19 01:56 98.1 04/22/19 00:03 98.1 86 22 136/73 98 Room Air 04/22/19 00:03 86 22 Room Air 04/21/19 23:36 98.1 86 136/73 (94) 98 Room Air Laboratory Tests Test 04/22/19 00:00 04/22/19 01:00 04/22/19 06:40 White Blood Count 6.0 K/UL (4.8-10.8) 4.8 K/UL (4.8-10.8) Red Blood Count 4.30 M/UL (4.20-5.40) 4.07 M/UL (4.20-5.40) L Hemoglobin 12.2 G/DL (12.0-16.0) 11.4 G/DL (12.0-16.0) L Hematocrit 35.4 % (37.0-47.0) L 33.8 % (37.0-47.0) L Mean Corpuscular Volume 82 FL (80-99) 83 FL (80-99) Mean Corpuscular Hemoglobin 28.4 PG (27.0-31.0) 27.9 PG (27.0-31.0) Mean Corpuscular Hemoglobin Concent 34.6 G/DL (32.0-36.0) 33.6 G/DL (32.0-36.0) Red Cell Distribution Width 11.7 % (11.6-14.8) 11.8 % (11.6-14.8) Platelet Count 247 K/UL (150-450) 227 K/UL (150-450) Mean Platelet Volume 6.7 FL (6.5-10.1) 6.3 FL (6.5-10.1) L Neutrophils (%) (Auto) 56.1 % (45.0-75.0) 51.5 % (45.0-75.0) Lymphocytes (%) (Auto) 27.8 % (20.0-45.0) 34.0 % (20.0-45.0) Monocytes (%) (Auto) 13.5 % (1.0-10.0) H 11.7 % (1.0-10.0) H Eosinophils (%) (Auto) 1.6 % (0.0-3.0) 2.1 % (0.0-3.0) Basophils (%) (Auto) 1.0 % (0.0-2.0) 0.8 % (0.0-2.0) Prothrombin Time 9.4 SEC (9.30-11.50) Prothromb Time International Ratio 0.9 (0.9-1.1) Activated Partial Thromboplast Time 25 SEC (23-33) Sodium Level 126 MMOL/L (136-145) L 128 MMOL/L (136-145) L Potassium Level 3.6 MMOL/L (3.5-5.1) 4.0 MMOL/L (3.5-5.1) Chloride Level 92 MMOL/L (98-107) L 95 MMOL/L (98-107) L Carbon Dioxide Level 22 MMOL/L (21-32) 27 MMOL/L (21-32) Anion Gap 12 mmol/L (5-15) 6 mmol/L (5-15) Blood Urea Nitrogen 12 mg/dL (7-18) 9 mg/dL (7-18) Creatinine 0.8 MG/DL (0.55-1.30) 0.9 MG/DL (0.55-1.30) Estimat Glomerular Filtration Rate mL/min (>60) mL/min (>60) Glucose Level 102 MG/DL (74-106) 87 MG/DL (74-106) Calcium Level 9.0 MG/DL (8.5-10.1) 8.7 MG/DL (8.5-10.1) Total Bilirubin 0.5 MG/DL (0.2-1.0) Aspartate Amino Transf (AST/SGOT) 22 U/L (15-37) Alanine Aminotransferase (ALT/SGPT) 20 U/L (12-78) Alkaline Phosphatase 87 U/L (46-116) Troponin I 0.000 ng/mL (0.000-0.056) Total Protein 7.6 G/DL (6.4-8.2) Albumin 3.9 G/DL (3.4-5.0) Globulin 3.7 g/dL Albumin/Globulin Ratio 1.1 (1.0-2.7) Thyroid Stimulating Hormone (TSH) 1.597 uiU/mL (0.358-3.740) Urine Color Pale yellow Urine Appearance Clear Urine pH 7 (4.5-8.0) Urine Specific [place] 1.005 (1.005-1.035) Urine Protein Negative (NEGATIVE) Urine Glucose (UA) Negative (NEGATIVE) Urine Ketones Negative (NEGATIVE) Urine Blood Negative (NEGATIVE) Urine Nitrite Negative (NEGATIVE) Urine Bilirubin Negative (NEGATIVE) Urine Urobilinogen Normal MG/DL (0.0-1.0) Urine Leukocyte Esterase 2+ (NEGATIVE) H Urine RBC 0-2 /HPF (0 - 2) Urine WBC 5-10 /HPF (0 - 2) H Urine Squamous Epithelial Cells Moderate /LPF (NONE/OCC) H Urine Bacteria Few /HPF (NONE) Urine Random Sodium 20 mmol/L (20-110) Height (Feet): 5 Height (Inches): 1.00 Weight (Pounds): 140 Medications Current Medications Medications (Trade) Dose Ordered Sig/Margot Route PRN Reason Start Time Stop Time Status Last Admin Dose Admin Acetaminophen (Tylenol) 650 mg Q4H PRN ORAL Mild Pain (Pain Scale 1-3) 04/22/19 05:00 05/22/19 04:59 Aspirin (Ecotrin) 81 mg DAILY ORAL 04/22/19 09:00 05/22/19 08:59 04/22/19 09:00 Dextrose (Dextrose 50%) 25 ml Q30M PRN IV Hypoglycemia 04/22/19 05:00 05/22/19 04:59 Dextrose (Dextrose 50%) 50 ml Q30M PRN IV Hypoglycemia 04/22/19 05:00 05/22/19 04:59 Diphenhydramine HCl (Benadryl) 25 mg Q6H PRN ORAL Itching/Pruritis 04/22/19 05:00 05/22/19 04:59 Docusate Sodium (Colace) 100 mg EVERY 12 HOURS ORAL 04/22/19 09:00 05/22/19 08:59 04/22/19 09:00 Heparin Sodium (Porcine) (Heparin 5000 units/ml) 5,000 units EVERY 12 HOURS SUBQ 04/22/19 09:00 05/22/19 08:59 Lisinopril (Prinivil) 10 mg BID ORAL 04/22/19 09:00 05/22/19 08:59 Assessment/Plan Problem List: (1) Hyponatremia ICD Codes: E87.1 - Hypo-osmolality and hyponatremia SNOMED: 29608338 (2) GERD (gastroesophageal reflux disease) ICD Codes: K21.9 - Gastro-esophageal reflux disease without esophagitis SNOMED: 299657150 (3) Yuan's esophagus ICD Codes: K22.70 - Yuan's esophagus without dysplasia SNOMED: 945440802 (4) HTN (hypertension) ICD Codes: I10 - Essential (primary) hypertension SNOMED: 39977426 Status: stable Assessment/Plan: 74-year-old female with history of hyponatremia, hypotension, Yuan's esophagus, gastritis and GERD, hiatal hernia presented to the hospital with nausea and vomiting. Exam unremarkable and she was alert and oriented x3. Laboratory investigations revealed sodium of 126, potassium 3.6, chloride 92, BUN 12, creatinine 0.8, glucose 102, normal transaminases, lipase 130, troponin negative, TSH 1.59, urine sodium 20. Urinalysis: 2+ leukoesterase, WBC 5-10, nitrite negative, RBC 0-2, bacteria few. CT head: Normal noncontrast CT head. 1. Hyponatremia. Hypovolemic due to excessive nausea and vomiting. We will replace fluids by giving her normal saline at 150 mL/h. Check urine electrolytes. Monitor serum sodium every 12 hours to avoid overcorrection. 2. Gastritis. Yuan's esophagus and GERD. PPI Gastroenterology consult with Dr. Arriaza Follow-up biopsy results EGD from February 2019 Will consider abdominal ultrasound. 3. Hypertension. Hold antihypertensive medications from home due to soft BP 4. Hypokalemia. Encourage p.o. intake and replace as needed. Babatunde Lawson M.D. Apr 22, 2019 10:29
[2019-04-22 12:00] VITALS: BP 120/68
--- NOTE | 2019-04-22 12:39 | GI Initial Consult Note ---
History of Present Illness General Date patient seen: Apr 22, 2019 Time patient seen: 12:39 Reason for Hospitalization: Hypertension Referring physician: ADAM CHOPRA Reason for Consultation: NAUSEA VOMITING Present Illness HPI 74-year-old female with history of hypertension, GERD, Yuan's esophagus, gastritis and hiatal hernia who presented to the ED with c/o of severe emesis. Patient denied any hematemesis or coffee grounds. Denied any recent travels or dietary changes. At time of evaluation, the patient states her N/V has resolved. She denies any abdominal pain, constipation or diarrhea. The patient has recent endoscopy approximately a month ago noted to have gastritis, 3cm hiatal hernia, and possible Yuan's esophagus. Pathology confirmed patient had mild to moderate chronic gastritis, positive for chronic reflux carditis. No H. Pylori was identified. Home Meds Active Scripts Omeprazole (OMEPRAZOLE) 40 Mg Capsule.dr, 40 MG ORAL DAILY for 30 Days, #30 CAP 0 Refills Prov:LisandroLeonela DO 03/07/19 Reported Medications Aspirin* (ASPIR 81*) 81 Mg Tablet.dr, 81 MG ORAL DAILY, TAB 04/21/19 Calcium Carbonate/Vitamin D3 (OYSCO 500+D TABLET) 1 Each Tablet, 1 EACH PO, TAB 03/04/19 Lisinopril* (LISINOPRIL*) 10 Mg Tablet, 10 MG ORAL BID, TAB 02/19/19 Med list reviewed/reconciled: Yes Allergies: Coded Allergies: No Known Allergies (Unverified , 01/03/17) Patient History PMH Narrative Past medical and surgical history: GERD, hypertension, Yuan's esophagus, gastritis, hiatal hernia Family history: High blood pressure Social history: Denies tobacco, alcohol, illicit drug use Review of Systems All Other Systems: negative except mentioned in HPI Physical Exam Vital Signs Date Time Temp Pulse Resp B/P (MAP) Pulse Ox O2 Delivery O2 Flow Rate FiO2 04/21/19 23:36 98.1 86 136/73 (94) 98 Room Air 04/22/19 00:03 22 Sp02 EP Interpretation: reviewed, normal Labs Laboratory Tests Test 04/22/19 00:00 04/22/19 01:00 04/22/19 06:40 White Blood Count 6.0 K/UL (4.8-10.8) 4.8 K/UL (4.8-10.8) Red Blood Count 4.30 M/UL (4.20-5.40) 4.07 M/UL (4.20-5.40) L Hemoglobin 12.2 G/DL (12.0-16.0) 11.4 G/DL (12.0-16.0) L Hematocrit 35.4 % (37.0-47.0) L 33.8 % (37.0-47.0) L Mean Corpuscular Volume 82 FL (80-99) 83 FL (80-99) Mean Corpuscular Hemoglobin 28.4 PG (27.0-31.0) 27.9 PG (27.0-31.0) Mean Corpuscular Hemoglobin Concent 34.6 G/DL (32.0-36.0) 33.6 G/DL (32.0-36.0) Red Cell Distribution Width 11.7 % (11.6-14.8) 11.8 % (11.6-14.8) Platelet Count 247 K/UL (150-450) 227 K/UL (150-450) Mean Platelet Volume 6.7 FL (6.5-10.1) 6.3 FL (6.5-10.1) L Neutrophils (%) (Auto) 56.1 % (45.0-75.0) 51.5 % (45.0-75.0) Lymphocytes (%) (Auto) 27.8 % (20.0-45.0) 34.0 % (20.0-45.0) Monocytes (%) (Auto) 13.5 % (1.0-10.0) H 11.7 % (1.0-10.0) H Eosinophils (%) (Auto) 1.6 % (0.0-3.0) 2.1 % (0.0-3.0) Basophils (%) (Auto) 1.0 % (0.0-2.0) 0.8 % (0.0-2.0) Prothrombin Time 9.4 SEC (9.30-11.50) Prothromb Time International Ratio 0.9 (0.9-1.1) Activated Partial Thromboplast Time 25 SEC (23-33) Sodium Level 126 MMOL/L (136-145) L 128 MMOL/L (136-145) L Potassium Level 3.6 MMOL/L (3.5-5.1) 4.0 MMOL/L (3.5-5.1) Chloride Level 92 MMOL/L (98-107) L 95 MMOL/L (98-107) L Carbon Dioxide Level 22 MMOL/L (21-32) 27 MMOL/L (21-32) Anion Gap 12 mmol/L (5-15) 6 mmol/L (5-15) Blood Urea Nitrogen 12 mg/dL (7-18) 9 mg/dL (7-18) Creatinine 0.8 MG/DL (0.55-1.30) 0.9 MG/DL (0.55-1.30) Estimat Glomerular Filtration Rate mL/min (>60) mL/min (>60) Glucose Level 102 MG/DL (74-106) 87 MG/DL (74-106) Calcium Level 9.0 MG/DL (8.5-10.1) 8.7 MG/DL (8.5-10.1) Total Bilirubin 0.5 MG/DL (0.2-1.0) Aspartate Amino Transf (AST/SGOT) 22 U/L (15-37) Alanine Aminotransferase (ALT/SGPT) 20 U/L (12-78) Alkaline Phosphatase 87 U/L (46-116) Troponin I 0.000 ng/mL (0.000-0.056) Total Protein 7.6 G/DL (6.4-8.2) Albumin 3.9 G/DL (3.4-5.0) Globulin 3.7 g/dL Albumin/Globulin Ratio 1.1 (1.0-2.7) Thyroid Stimulating Hormone (TSH) 1.597 uiU/mL (0.358-3.740) Urine Color Pale yellow Urine Appearance Clear Urine pH 7 (4.5-8.0) Urine Specific [place] 1.005 (1.005-1.035) Urine Protein Negative (NEGATIVE) Urine Glucose (UA) Negative (NEGATIVE) Urine Ketones Negative (NEGATIVE) Urine Blood Negative (NEGATIVE) Urine Nitrite Negative (NEGATIVE) Urine Bilirubin Negative (NEGATIVE) Urine Urobilinogen Normal MG/DL (0.0-1.0) Urine Leukocyte Esterase 2+ (NEGATIVE) H Urine RBC 0-2 /HPF (0 - 2) Urine WBC 5-10 /HPF (0 - 2) H Urine Squamous Epithelial Cells Moderate /LPF (NONE/OCC) H Urine Bacteria Few /HPF (NONE) Urine Random Sodium 20 mmol/L (20-110) Lipase 130 U/L (73-393) General Appearance: well appearing, no apparent distress, alert Head: normocephalic EENT: PERRL/EOMI, normal ENT inspection Neck: supple Respiratory: normal breath sounds, no respiratory distress Cardiovascular: normal rate Gastrointestinal: normal inspection, non tender, soft, normal bowel sounds, non -distended Rectal: deferred Genitourinary: no CVA tenderness Musculoskeletal: normal inspection, back normal Neurologic: normal inspection, alert, oriented x3, responsive Psychiatric: normal inspection, judgement/insight normal, memory normal Skin: normal inspection, normal color, no rash, warm/dry, palpation normal, well hydrated Lymphatic: normal inspection, no adenopathy Current Medications Current Medications Medications (Trade) Dose Ordered Sig/Margot Route PRN Reason Start Time Stop Time Status Last Admin Dose Admin Acetaminophen (Tylenol) 650 mg Q4H PRN ORAL Mild Pain (Pain Scale 1-3) 04/22/19 05:00 05/22/19 04:59 Aspirin (Ecotrin) 81 mg DAILY ORAL 04/22/19 09:00 05/22/19 08:59 04/22/19 09:00 Dextrose (Dextrose 50%) 25 ml Q30M PRN IV Hypoglycemia 04/22/19 05:00 05/22/19 04:59 Dextrose (Dextrose 50%) 50 ml Q30M PRN IV Hypoglycemia 04/22/19 05:00 05/22/19 04:59 Diphenhydramine HCl (Benadryl) 25 mg Q6H PRN ORAL Itching/Pruritis 04/22/19 05:00 05/22/19 04:59 Docusate Sodium (Colace) 100 mg EVERY 12 HOURS ORAL 04/22/19 09:00 05/22/19 08:59 04/22/19 09:00 Heparin Sodium (Porcine) (Heparin 5000 units/ml) 5,000 units EVERY 12 HOURS SUBQ 04/22/19 09:00 05/22/19 08:59 Lisinopril (Prinivil) 10 mg BID ORAL 04/22/19 09:00 05/22/19 08:59 Sodium Chloride 1,000 ml @ 150 mls/hr Q6H40M IV 04/22/19 11:15 05/22/19 11:14 04/22/19 11:41 GI: Plan Problems: (1) Dehydration (2) Electrolyte imbalance (3) GERD (gastroesophageal reflux disease) Plan s/p EGD SUMMARY OF FINDINGS: - Chronic Reflux Carditis - negative for H. Pylori - Gastritis RECOMMENDATIONS: no plans for GI procedures symptomatic treatment zofran prn, reglan for persistent vomiting advance to regular diet cont omeprazole IV/PO hydration Discussed with Dr. Arriaza. Thank you for this patient referral, we will follow. The patient was seen and examined at bedside and all new and available data was reviewed in the patients chart. I agree with the above findings, impression and plan. (Patient seen earlier today. Signature stamp does not reflect patient encounter time.). - MD Gale MiddletonFabi-Art LAONA Apr 22, 2019 12:39
--- NOTE | 2019-04-22 15:27 | NUR ---
*-* INSURANCE *-* ALL AVAILABLE CLINICALS HAVE BEEN FAXED TO: [employer]#[id number] Spa Receptionist:Luther
--- NOTE | 2019-04-22 15:54 | Diagnostic Imaging Report ---
Indication: Abdominal pain Technique: Grayscale and duplex Doppler imaging of the abdomen performed. Comparison: None Findings: There is an 8 mm cyst in the right lobe of the liver near the dome. Doppler interrogation of the main portal vein shows patency with hepatopedal, monophasic flow. There is no biliary ductal dilatation identified. Gallbladder is notable for stone. No wall thickening identified. Sonographic Miller's is negative per technologist. There demonstrated part of the pancreas, aorta and IVC show no definite abnormalities. There is a 1 cm exophytic cyst within the right kidney. There is no hydronephrosis. IMPRESSION: No acute findings Gallstone. Liver cyst Right renal cyst
[2019-04-22 16:00] VITALS: BP 108/62
[2019-04-22 19:19] LABS: ANION GAP 8 mmol/L (5-15); BLOOD UREA NITROGEN 7 mg/dL (7-18); CALCIUM 8.5 MG/DL (8.5-10.1); CARBON DIOXIDE 22 MMOL/L (21-32); CHLORIDE 103 MMOL/L (98-107); CREATININE 0.7 MG/DL (0.55-1.30); POTASSIUM 4.1 MMOL/L (3.5-5.1); SODIUM 133 MMOL/L (136-145)
--- NOTE | 2019-04-22 19:52 | NUR ---
HAND-OFF: Report given to ALINE Canales.
--- NOTE | 2019-04-22 19:55 | NUR ---
CASE MANAGEMENT: REVIEW 74Y/FEMALE PRESENTED TO ED FROM HOME CC: RIGHT FLANK PAIN . DIZZINESS SI: HYPONATREMIA . GERD T 98.1 HR 86 RR 22 BP 136/73 SAT 98% ROOM AIR H/H 11.4/33.[address] HEAD -- NO MASS EFFECT, EDEMA OR ACUTE BLEED IS: ZOFRAN IV X1 ANTIVERT PO X1 TYLENOL PO X1 NS IVF BOLUS X1 NPO PATIENT ADMITTED TO MED/SURG UNIT 04/21/2019 DCP: PATIENT IS FROM HOME
[2019-04-22 20:00] VITALS: BP 127/70
--- NOTE | 2019-04-22 20:03 | NUR ---
NURSE NOTES: RECEIVED PT FROM ALINE MEZA. PT IS AWAKE, AAOX4, ON ROOM AIR. IV ON LEFT HAND 20G IS INTACT AND PATENT. BED IS LOCKED AT THE LOWEST POSITION, BED ALARMS ACTIVE, SIDE RAILS UP X2, AND CALL LIGHT IS WITHIN REACH. WILL CONTINUE TO MONITOR AND CONTINUE THE PLAN OF CARE.
[2019-04-23] VITALS: BP 116/59
[2019-04-23 04:00] VITALS: BP 108/60
--- NOTE | 2019-04-23 04:06 | NUR ---
NURSE NOTES: PT IS ASLEEP, VSS. WILL CONTINUE TO MONITOR.
--- NOTE | 2019-04-23 06:28 | NUR ---
NURSE NOTES: LORE MEEKS CONTACT NUMBER IS [phone]
[2019-04-23 07:06] LABS: ANION GAP 8 mmol/L (5-15); BLOOD UREA NITROGEN 9 mg/dL (7-18); CALCIUM 8.5 MG/DL (8.5-10.1); CARBON DIOXIDE 24 MMOL/L (21-32); CHLORIDE 105 MMOL/L (98-107); CREATININE 0.8 MG/DL (0.55-1.30); POTASSIUM 4.3 MMOL/L (3.5-5.1); SODIUM 137 MMOL/L (136-145)
--- NOTE | 2019-04-23 07:46 | NUR ---
HAND-OFF: Report given to ALINE Eli.
[2019-04-23 08:00] VITALS: BP 122/72
--- NOTE | 2019-04-23 08:33 | NUR ---
NURSE NOTES: Patient is awake and alert,respirations unlabored.patient had a bowel movement this Am,Skin care.all light within reach.
[2019-04-23 09:44] VITALS: BP 136/61
[2019-04-23] MEDS: Docusate 100mg cap ORAL SCH ×2 (09:50→20:23)
[2019-04-23] MEDS: Aspirin EC 81mg tab ORAL SCH (09:50)
[2019-04-23] MEDS: Lisinopril 20mg tab ORAL SCH ×2 (09:51→19:24)
[2019-04-23] MEDS: Heparin 5000 units/ml inj SUBQ SCH ×2 (09:53→20:24)
--- NOTE | 2019-04-23 11:59 | General Progress Note ---
Assessment/Plan Problem List: (1) Hyponatremia ICD Codes: E87.1 - Hypo-osmolality and hyponatremia SNOMED: 71935772 (2) GERD (gastroesophageal reflux disease) ICD Codes: K21.9 - Gastro-esophageal reflux disease without esophagitis SNOMED: 482816996 (3) Yuan's esophagus ICD Codes: K22.70 - Yuan's esophagus without dysplasia SNOMED: 403501354 (4) HTN (hypertension) ICD Codes: I10 - Essential (primary) hypertension SNOMED: 35608726 Status: stable Assessment/Plan: 74-year-old female with history of hyponatremia, hypotension, Yuan's esophagus, gastritis and GERD, hiatal hernia presented to the hospital with nausea and vomiting. Exam unremarkable and she was alert and oriented x3. Laboratory investigations revealed sodium of 126, potassium 3.6, chloride 92, BUN 12, creatinine 0.8, glucose 102, normal transaminases, lipase 130, troponin negative, TSH 1.59, urine sodium 20. Urinalysis: 2+ leukoesterase, WBC 5-10, nitrite negative, RBC 0-2, bacteria few. CT head: Normal noncontrast CT head. 1. Hyponatremia. Hypovolemic due to excessive nausea and vomiting. Resolved We will replace fluids by giving her normal saline at 150 mL/h. reduce to 75 ml/ hr urine electrolytes Advance diet 2. Gastritis. Yuan's esophagus and GERD. PPI Gastroenterology consult with Dr. Arriaza appreciated Follow-up biopsy results EGD from February 2019- mild to moderate chronic gastritis, no h.pylori. abdominal ultrasound notable for gallstone. Will refer for outpatient cholecystectomy upon discharge. 3. Hypertension. Hold antihypertensive medications from home due to soft BP 4. Hypokalemia. Encourage p.o. intake and replace as needed. I spent 25 minutes on this encounter. ? 50% spent on counselling and care coordination. Subjective Date patient seen: Apr 23, 2019 Constitutional: Denies: no symptoms, chills, diaphoresis, fever, malaise, weakness, other Gastrointestinal/Abdominal: Denies: no symptoms, abdomen distended, abdominal pain, black stools, tarry stools, blood in stool, constipated, diarrhea, difficulty swallowing, nausea, poor appetite, poor fluid intake, rectal bleeding , vomiting, other Allergies: Coded Allergies: No Known Allergies (Unverified , 01/03/17) Subjective she is hungry been npo Objective Last 24 Hour Vital Signs Date Time Temp Pulse Resp B/P (MAP) Pulse Ox O2 Delivery O2 Flow Rate FiO2 04/23/19 09:51 136/61 04/23/19 09:44 63 136/61 (86) 04/23/19 08:00 96.4 68 16 122/72 (89) 98 04/23/19 04:00 97.6 58 18 108/60 (76) 99 04/23/19 00:00 97.8 64 18 116/59 (78) 97 04/22/19 21:00 Room Air 04/22/19 20:00 97.6 64 20 127/70 (89) 97 04/22/19 17:13 108/62 04/22/19 16:00 98.2 64 18 108/62 (77) 97 04/22/19 12:00 98.2 78 18 120/68 (85) 98 Intake and Output 04/22/19 04/23/19 19:00 07:00 Intake Total 150 ml 1350 ml Balance 150 ml 1350 ml Intake Oral 150 ml IV Total 1350 ml # Voids 1 Laboratory Tests 04/22/19 18:36: Sodium Level 133L, Potassium Level 4.1, Chloride Level 103, Carbon Dioxide Level 22, Anion Gap 8, Blood Urea Nitrogen 7, Creatinine 0.7, Estimat Glomerular Filtration Rate , Glucose Level 98, Calcium Level 8.5 04/23/19 05:17: Sodium Level 137, Potassium Level 4.3, Chloride Level 105, Carbon Dioxide Level 24, Anion Gap 8, Blood Urea Nitrogen 9, Creatinine 0.8, Estimat Glomerular Filtration Rate , Glucose Level 85, Calcium Level 8.5 Abdominal US: reviewed: 8 mm cyst in the right lobe of the liver near the dome. Doppler interrogation of the main portal vein shows patency with hepatopedal, monophasic flow. There is no biliary ductal dilatation identified. Gallbladder is notable for stone. No wall thickening identified. Sonographic Miller's is negative per technologist. There demonstrated part of the pancreas, aorta and IVC show no definite abnormalities. There is a 1 cm exophytic cyst within the right kidney. There is no hydronephrosis. IMPRESSION: No acute findings Gallstone. Liver cyst Right renal cyst Height (Feet): 5 Height (Inches): 1.00 Weight (Pounds): 139 Objective General Appearance: normal inspection, well appearing, no apparent distress, alert, awake Head: atraumatic ENT: normal ENT inspection, hearing grossly normal, normal voice Neck: normal inspection, full range of motion, supple, no bony tend Respiratory: normal inspection, lungs clear, normal breath sounds, no respiratory distress, no retraction, no wheezing Cardiovascular : regular rate, rhythm, no m/r/g, no edema Gastrointestinal: RUQ tenderness, soft, non distended, normal bowel sounds Genitourinary: no CVA tenderness Musculoskeletal: normal inspection, back normal, normal range of motion Neurologic: normal inspection, alert, oriented x3, responsive, broadband engineer III-XII nml as tested, speech normal Psychiatric: normal inspection, judgement/insight normal, mood/affect normal Skin: No ulcers or rashes Babatunde Lawson M.D. Apr 23, 2019 11:59
--- NOTE | 2019-04-23 12:07 | GI Progress Note ---
Assessment/Plan Problems: (1) Constipation ICD Codes: K59.00 - Constipation, unspecified SNOMED: 55749419 (2) GERD (gastroesophageal reflux disease) ICD Codes: K21.9 - Gastro-esophageal reflux disease without esophagitis SNOMED: 192191825 (3) Yuan's esophagus ICD Codes: K22.70 - Yuan's esophagus without dysplasia SNOMED: 122532814 Status: stable, unchanged Status Narrative Discussed with Dr. Arriaza. Assessment/Plan s/p EGD SUMMARY OF FINDINGS: - Chronic Reflux Carditis - negative for H. Pylori - Gastritis RECOMMENDATIONS: no plans for GI procedures symptomatic treatment colace + miralax zofran prn, reglan for persistent vomiting advance to regular diet omeprazole 40 mg, consider adding pepcid 20 mg qhs if patient has persistent epigastric pain IV/PO hydration The patient was seen and examined at bedside and all new and available data was reviewed in the patients chart. I agree with the above findings, impression and plan. (Patient seen earlier today. Signature stamp does not reflect patient encounter time.). - Frederick Arriaza MD Subjective Subjective abdominal pain worse, but had minimum relief after BM Objective Last 24 Hour Vital Signs Date Time Temp Pulse Resp B/P (MAP) Pulse Ox O2 Delivery O2 Flow Rate FiO2 04/23/19 09:51 136/61 04/23/19 09:44 63 136/61 (86) 04/23/19 08:00 96.4 68 16 122/72 (89) 98 04/23/19 04:00 97.6 58 18 108/60 (76) 99 04/23/19 00:00 97.8 64 18 116/59 (78) 97 04/22/19 21:00 Room Air 04/22/19 20:00 97.6 64 20 127/70 (89) 97 04/22/19 17:13 108/62 04/22/19 16:00 98.2 64 18 108/62 (77) 97 Intake and Output 04/22/19 04/23/19 19:00 07:00 Intake Total 150 ml 1350 ml Balance 150 ml 1350 ml Intake Oral 150 ml IV Total 1350 ml # Voids 1 Laboratory Tests Test 04/22/19 18:36 04/23/19 05:17 Sodium Level 133 MMOL/L (136-145) L 137 MMOL/L (136-145) Potassium Level 4.1 MMOL/L (3.5-5.1) 4.3 MMOL/L (3.5-5.1) Chloride Level 103 MMOL/L (98-107) 105 MMOL/L (98-107) Carbon Dioxide Level 22 MMOL/L (21-32) 24 MMOL/L (21-32) Anion Gap 8 mmol/L (5-15) 8 mmol/L (5-15) Blood Urea Nitrogen 7 mg/dL (7-18) 9 mg/dL (7-18) Creatinine 0.7 MG/DL (0.55-1.30) 0.8 MG/DL (0.55-1.30) Estimat Glomerular Filtration Rate mL/min (>60) mL/min (>60) Glucose Level 98 MG/DL (74-106) 85 MG/DL (74-106) Calcium Level 8.5 MG/DL (8.5-10.1) 8.5 MG/DL (8.5-10.1) Height (Feet): 5 Height (Inches): 1.00 Weight (Pounds): 139 General Appearance: WD/WN, no apparent distress, alert Cardiovascular: normal rate Respiratory/Chest: normal breath sounds, no respiratory distress Abdominal Exam: normal bowel sounds, non tender, soft Extremities: normal range of motion, non-tender Fracisco Beasley NP Apr 23, 2019 12:07
--- NOTE | 2019-04-23 15:04 | Cardiology Report ---
APPROVED REPORT EKG Measurement Heart [id number] WI [id number] Normal sinus rhythm Normal ECG
[2019-04-23 16:00] VITALS: BP 127/57
--- NOTE | 2019-04-23 19:00 | NUR ---
NURSE NOTES: IV fluids continues to infuse as ordered.patient has pain but only have tylenol ordered,will notify DR ,patient requesting stronger pain medication.
--- NOTE | 2019-04-23 19:47 | NUR ---
HAND-OFF: Report given to Taisha MIRELES.
--- NOTE | 2019-04-23 19:55 | NUR ---
NURSE NOTES: Received patient in bed, awake, alert, oriented x4, no distress noted, VSS, afebrile. Patient is Estonian speaking, able to make her needs known, IV site is clean dry and intact. Call light is within reach, bed is lowered, locked, and alarm is on. Will continue to asses for comfort and safety.
[2019-04-23 20:00] VITALS: BP 129/68
--- NOTE | 2019-04-23 20:08 | NUR ---
CASE MANAGEMENT: REVIEW SI: HYPONATREMIA . GERD T 96.4 HR 58 RR 16 BP 148/71 SAT 98% ROOM AIR NA 137 IS: NS IVF @ 75ML/HR HEPARIN SUBQ Q12HR COLACE PO BID LISINOPRIL PO BID MED/SURG STATUS DCP: PATIENT IS FROM HOME
[2019-04-24] VITALS: BP 140/67
[2019-04-24 04:00] VITALS: BP 133/71
[2019-04-24 06:11] LABS: BASOPHILS % (AUTO) 0.9 % (0.0-2.0); EOSINOPHILS % (AUTO) 3.8 % (0.0-3.0); HEMATOCRIT 33.8 % (37.0-47.0); HEMOGLOBIN 11.3 G/DL (12.0-16.0); LYMPHOCYTES % (AUTO) 35.6 % (20.0-45.0); MEAN CORPUSCULAR VOLUME 84 FL (80-99); MONOCYTES % (AUTO) 9.9 % (1.0-10.0); NEUTROPHILS % (AUTO) 49.8 % (45.0-75.0); PLATELET COUNT 221 K/UL (150-450); RED BLOOD COUNT 4.03 M/UL (4.20-5.40); RED CELL DISTRIBUTION WIDTH 12.1 % (11.6-14.8); WHITE BLOOD COUNT 4.2 K/UL (4.8-10.8)
[2019-04-24 06:32] LABS: ANION GAP 7 mmol/L (5-15); BLOOD UREA NITROGEN 7 mg/dL (7-18); CALCIUM 8.8 MG/DL (8.5-10.1); CARBON DIOXIDE 25 MMOL/L (21-32); CHLORIDE 105 MMOL/L (98-107); CREATININE 0.8 MG/DL (0.55-1.30); SODIUM 137 MMOL/L (136-145)
--- NOTE | 2019-04-24 07:27 | NUR ---
HAND-OFF: Report given to Alcira MIRELES.
--- NOTE | 2019-04-24 07:34 | NUR ---
NURSE NOTES: Patient is awake and alert,IV fluids infusing as ordered,sitting up in bed and eating breakfast,Call light within reach.
[2019-04-24 08:00] VITALS: BP 135/74
[2019-04-24] MEDS: Lisinopril 20mg tab ORAL SCH ×2 (08:50→18:18)
[2019-04-24] MEDS: Docusate 100mg cap ORAL SCH ×2 (08:50→20:23)
[2019-04-24] MEDS: Aspirin EC 81mg tab ORAL SCH (08:50)
[2019-04-24] MEDS: Heparin 5000 units/ml inj SUBQ SCH ×2 (08:51→20:24)
[2019-04-24 12:00] VITALS: BP 148/76
--- NOTE | 2019-04-24 12:09 | GI Progress Note ---
Assessment/Plan Problems: (1) Constipation ICD Codes: K59.00 - Constipation, unspecified SNOMED: 85250533 (2) GERD (gastroesophageal reflux disease) ICD Codes: K21.9 - Gastro-esophageal reflux disease without esophagitis SNOMED: 824811767 (3) Yuan's esophagus ICD Codes: K22.70 - Yuan's esophagus without dysplasia SNOMED: 933780302 (4) Biliary colic ICD Codes: K80.50 - Calculus of bile duct without cholangitis or cholecystitis without obstruction SNOMED: 43875723 Status Narrative Discussed with Dr. Arriaza. Assessment/Plan s/p EGD SUMMARY OF FINDINGS: - Chronic Reflux Carditis - negative for H. Pylori - Gastritis RECOMMENDATIONS: no plans for GI procedures surgical evaluation for biliary colic symptomatic treatment colace + miralax zofran prn, reglan for persistent vomiting advance to regular diet omeprazole 40 mg IV/PO hydration The patient was seen and examined at bedside and all new and available data was reviewed in the patients chart. I agree with the above findings, impression and plan. (Patient seen earlier today. Signature stamp does not reflect patient encounter time.). - Frederick Arriaza MD Subjective Subjective abdominal pain worse, but had minimum relief after BM RUQ pain with radiation to right flank Objective Last 24 Hour Vital Signs Date Time Temp Pulse Resp B/P (MAP) Pulse Ox O2 Delivery O2 Flow Rate FiO2 04/24/19 08:50 123/64 04/24/19 08:00 97.3 75 19 135/74 (94) 99 04/24/19 04:00 98.1 65 18 133/71 (91) 04/24/19 00:00 97.7 68 18 140/67 (91) 04/23/19 21:05 Room Air 04/23/19 20:00 97.7 68 18 129/68 (88) 04/23/19 19:24 148/71 04/23/19 16:00 97.8 73 18 127/57 (80) 99 Intake and Output 04/23/19 04/24/19 19:00 07:00 Intake Total 540 ml 240 ml Balance 540 ml 240 ml Intake Oral 240 ml 240 ml IV Total 300 ml # Voids 1 # Bowel Movements 1 Laboratory Tests Test 04/24/19 05:28 White Blood Count 4.2 K/UL (4.8-10.8) L Red Blood Count 4.03 M/UL (4.20-5.40) L Hemoglobin 11.3 G/DL (12.0-16.0) L Hematocrit 33.8 % (37.0-47.0) L Mean Corpuscular Volume 84 FL (80-99) Mean Corpuscular Hemoglobin 28.2 PG (27.0-31.0) Mean Corpuscular Hemoglobin Concent 33.6 G/DL (32.0-36.0) Red Cell Distribution Width 12.1 % (11.6-14.8) Platelet Count 221 K/UL (150-450) Mean Platelet Volume 6.2 FL (6.5-10.1) L Neutrophils (%) (Auto) 49.8 % (45.0-75.0) Lymphocytes (%) (Auto) 35.6 % (20.0-45.0) Monocytes (%) (Auto) 9.9 % (1.0-10.0) Eosinophils (%) (Auto) 3.8 % (0.0-3.0) H Basophils (%) (Auto) 0.9 % (0.0-2.0) Sodium Level 137 MMOL/L (136-145) Potassium Level 4.0 MMOL/L (3.5-5.1) Chloride Level 105 MMOL/L (98-107) Carbon Dioxide Level 25 MMOL/L (21-32) Anion Gap 7 mmol/L (5-15) Blood Urea Nitrogen 7 mg/dL (7-18) Creatinine 0.8 MG/DL (0.55-1.30) Estimat Glomerular Filtration Rate mL/min (>60) Glucose Level 93 MG/DL (74-106) Calcium Level 8.8 MG/DL (8.5-10.1) Height (Feet): 5 Height (Inches): 1.00 Weight (Pounds): 139 General Appearance: WD/WN, no apparent distress, alert Cardiovascular: normal rate Respiratory/Chest: normal breath sounds, no respiratory distress Abdominal Exam: normal bowel sounds, non tender, soft Extremities: normal range of motion, non-tender Fracisco Beasley NP Apr 24, 2019 12:09
--- NOTE | 2019-04-24 12:19 | General Progress Note ---
Assessment/Plan Problem List: (1) Hyponatremia ICD Codes: E87.1 - Hypo-osmolality and hyponatremia SNOMED: 50299921 (2) GERD (gastroesophageal reflux disease) ICD Codes: K21.9 - Gastro-esophageal reflux disease without esophagitis SNOMED: 937580199 (3) Yuan's esophagus ICD Codes: K22.70 - Yuan's esophagus without dysplasia SNOMED: 932043268 (4) HTN (hypertension) ICD Codes: I10 - Essential (primary) hypertension SNOMED: 08878292 (5) Cholelithiasis ICD Codes: K80.20 - Calculus of gallbladder without cholecystitis without obstruction SNOMED: 708506425 (6) Biliary colic ICD Codes: K80.50 - Calculus of bile duct without cholangitis or cholecystitis without obstruction SNOMED: 53579490 Status: stable, unchanged Assessment/Plan: 74-year-old female with history of hyponatremia, hypotension, Yuan's esophagus, gastritis and GERD, hiatal hernia presented to the hospital with nausea and vomiting. Exam unremarkable and she was alert and oriented x3. Laboratory investigations revealed sodium of 126, potassium 3.6, chloride 92, BUN 12, creatinine 0.8, glucose 102, normal transaminases, lipase 130, troponin negative, TSH 1.59, urine sodium 20. Urinalysis: 2+ leukoesterase, WBC 5-10, nitrite negative, RBC 0-2, bacteria few. CT head: Normal noncontrast CT head. 1. Hyponatremia. Hypovolemic due to excessive nausea and vomiting. Resolved We will replace fluids by giving her normal saline at 150 mL/h. reduced to 75 ml /hr. stop today since she is eating 2. Gastritis. Yuan's esophagus and GERD. cholelithiasis. Biliary colic. PPI Gastroenterology consult with Dr. Arriaza appreciated Follow-up biopsy results EGD from February 2019- mild to moderate chronic gastritis, no h.pylori. abdominal ultrasound notable for gallstone. Will refer for outpatient cholecystectomy upon discharge. persistent abdominal pain now after eating. Will repeat LFTs. surgical consult with Dr. Garcia 3. Hypertension. Hold antihypertensive medications from home due to soft BP 4. Hypokalemia. Encourage p.o. intake and replace as needed. I spent 40 minutes on this encounter. ? 50% spent on counselling and care coordination. Subjective Date patient seen: Apr 24, 2019 ROS Limited/Unobtainable: No Constitutional: Denies: no symptoms, chills, diaphoresis, fever, malaise, weakness, other HEENT: Denies: no symptoms, eye pain, blurred vision, tearing, double vision, ear pain, ear discharge, nose pain, nose congestion, throat pain, throat swelling, mouth pain, mouth swelling, other Cardiovascular: Denies: no symptoms, chest pain, edema, irregular heart rate, lightheadedness, palpitations, syncope, other Respiratory: Denies: no symptoms, cough, orthopnea, shortness of breath, SOB with excertion, SOB at rest, sputum, stridor, wheezing, other Gastrointestinal/Abdominal: Reports: abdominal pain - RUQ going to her back ; Denies: no symptoms, abdomen distended, black stools, tarry stools, blood in stool, constipated, diarrhea, difficulty swallowing, nausea, poor appetite, poor fluid intake, rectal bleeding, vomiting, other Neurologic/Psychiatric: Denies: no symptoms, anxiety, depressed, emotional problems, headache, numbness, paresthesia, pre-existing deficit, seizure, tingling, tremors, weakness, other Endocrine: Denies: no symptoms, excessive sweating, flushing, intolerance to cold, intolerance to heat, increased hunger, increased thirst, increased urine, unexplained weight gain, unexplained weight loss, other Hematologic/Lymphatic: Denies: no symptoms, anemia, easy bleeding, easy bruising, other Allergies: Coded Allergies: No Known Allergies (Unverified , 01/03/17) Subjective abdominal pain is back after eating. RUQ, going ot the back Objective Last 24 Hour Vital Signs Date Time Temp Pulse Resp B/P (MAP) Pulse Ox O2 Delivery O2 Flow Rate FiO2 04/24/19 08:50 123/64 04/24/19 08:00 97.3 75 19 135/74 (94) 99 04/24/19 04:00 98.1 65 18 133/71 (91) 04/24/19 00:00 97.7 68 18 140/67 (91) 04/23/19 21:05 Room Air 04/23/19 20:00 97.7 68 18 129/68 (88) 04/23/19 19:24 148/71 04/23/19 16:00 97.8 73 18 127/57 (80) 99 Intake and Output 04/23/19 04/24/19 19:00 07:00 Intake Total 540 ml 240 ml Balance 540 ml 240 ml Intake Oral 240 ml 240 ml IV Total 300 ml # Voids 1 # Bowel Movements 1 Laboratory Tests 04/24/19 05:28: White Blood Count 4.2L, Red Blood Count 4.03L, Hemoglobin 11.3L, Hematocrit 33.8L, Mean Corpuscular Volume 84, Mean Corpuscular Hemoglobin 28.2, Mean Corpuscular Hemoglobin Concent 33.6, Red Cell Distribution Width 12.1, Platelet Count 221, Mean Platelet Volume 6.2L, Neutrophils (%) (Auto) 49.8, Lymphocytes ( %) (Auto) 35.6, Monocytes (%) (Auto) 9.9, Eosinophils (%) (Auto) 3.8H, Basophils (%) (Auto) 0.9, Sodium Level 137, Potassium Level 4.0, Chloride Level 105, Carbon Dioxide Level 25, Anion Gap 7, Blood Urea Nitrogen 7, Creatinine 0.8 , Estimat Glomerular Filtration Rate , Glucose Level 93, Calcium Level 8.8 Height (Feet): 5 Height (Inches): 1.00 Weight (Pounds): 139 Objective General Appearance: normal inspection, well appearing, no apparent distress, alert, awake Head: atraumatic ENT: normal ENT inspection, hearing grossly normal, normal voice Neck: normal inspection, full range of motion, supple, no bony tend Respiratory: normal inspection, lungs clear, normal breath sounds, no respiratory distress, no retraction, no wheezing Cardiovascular : regular rate, rhythm, no m/r/g, no edema Gastrointestinal: RUQ tenderness, soft, non distended, normal bowel sounds, no guarding Genitourinary: no CVA tenderness Musculoskeletal: normal inspection, back normal, normal range of motion Neurologic: normal inspection, alert, oriented x3, responsive, orange grower III-XII nml as tested, speech normal Psychiatric: normal inspection, judgement/insight normal, mood/affect normal Skin: No ulcers or rashes Babatunde Lawson M.D. Apr 24, 2019 12:19
[2019-04-24 13:11] LABS: ALANINE AMINOTRANSFERASE 19 U/L (12-78); ALBUMIN 3.3 G/DL (3.4-5.0); ALKALINE PHOSPHATASE 72 U/L (46-116); ASPARTATE AMINO TRANSFERASE 19 U/L (15-37); BILIRUBIN,DIRECT < 0.1 MG/DL (0.0-0.3); BILIRUBIN,TOTAL 0.3 MG/DL (0.2-1.0)
--- NOTE | 2019-04-24 14:20 | NUR ---
*-* INSURANCE *-* ALL AVAILABLE CLINICALS HAVE BEEN FAXED TO: [employer]#[id number] [employer]:[place]uther
[2019-04-24 16:00] VITALS: BP 135/75
--- NOTE | 2019-04-24 19:08 | NUR ---
HAND-OFF: Report given to Taisha MIRELES.
--- NOTE | 2019-04-24 19:15 | NUR ---
NURSE NOTES: Pain medication was given at 1825.with little relief,patient complain of heart burn,order call was placed and ordesr was received by oncoming nurse Miriam.
--- NOTE | 2019-04-24 19:48 | NUR ---
NURSE NOTES: Received patient in bed, awake, alert, oriented, German speaking only, no acute distress noted, able to make her needs known. IV site is clean dry and intact, call light is within reach, bed is locked, lowered, and alarm is on. Will continue to monitor for comfort and safety.
--- NOTE | 2019-04-24 19:57 | NUR ---
NURSE NOTES: Voice message left for SMILEY Tomas in regards patients insurance and transfer to another facility.
[2019-04-24 20:00] VITALS: BP 145/71
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
--- NOTE | 2019-04-24 23:20 | NUR ---
NURSE NOTES: Received a call that patient can be transferred ( due to insurance ) to [facility] in [facility], facility were holding a bed for the patient, RN notified family of the transfer, family refused for patient to be transferred. Notified MD training consultant of family refusal, MD stated to wait till morning to communicate with CM on proper arrangements. Family of the patient stated that they rather take patient home AMA, RN educated on proper form to be signed, and what AMA entitles. Family verbalized understanding. MD was made aware.
[2019-04-25] VITALS: BP 130/68
[2019-04-25] MEDS: traMADol 50mg tab ORAL PRN ×2 (00:53→11:02)
[2019-04-25 04:00] VITALS: BP 130/62
[2019-04-25 06:35] LABS: INR 0.9 (0.9-1.1)
[2019-04-25 06:40] LABS: HEMATOCRIT 32.9 % (37.0-47.0); MEAN CORPUSCULAR VOLUME 84 FL (80-99); MONOCYTES % (AUTO) 9.9 % (1.0-10.0); NEUTROPHILS % (AUTO) 46.2 % (45.0-75.0); PLATELET COUNT 244 K/UL (150-450); RED BLOOD COUNT 3.93 M/UL (4.20-5.40); RED CELL DISTRIBUTION WIDTH 11.7 % (11.6-14.8); WHITE BLOOD COUNT 3.9 K/UL (4.8-10.8)
--- NOTE | 2019-04-25 07:11 | NUR ---
HAND-OFF: Report given to Rosys GREEN.
[2019-04-25 07:20] LABS: ALANINE AMINOTRANSFERASE 19 U/L (12-78); ALBUMIN 3.1 G/DL (3.4-5.0); ALKALINE PHOSPHATASE 60 U/L (46-116); ANION GAP 9 mmol/L (5-15); ASPARTATE AMINO TRANSFERASE 17 U/L (15-37); BILIRUBIN,TOTAL 0.4 MG/DL (0.2-1.0); BLOOD UREA NITROGEN 5 mg/dL (7-18); CALCIUM 8.9 MG/DL (8.5-10.1); CARBON DIOXIDE 24 MMOL/L (21-32); CHLORIDE 103 MMOL/L (98-107); CREATININE 0.9 MG/DL (0.55-1.30); POTASSIUM 4.1 MMOL/L (3.5-5.1); SODIUM 136 MMOL/L (136-145)
[2019-04-25 07:31] LABS: AMYLASE 86 U/L (25-115)
--- NOTE | 2019-04-25 07:44 | NUR ---
NURSE NOTES: Received patient in bed, awake, alert, oriented x4, [place] speaking only, no acute distress noted, able to make her needs known. IV site is clean dry and intact, call light is within reach, bed is locked, lowered, and alarm is on. Will continue to monitor for comfort and safety.
[2019-04-25 08:01] VITALS: BP 149/69
[2019-04-25] MEDS: Lisinopril 20mg tab ORAL SCH ×2 (08:20→17:11)
[2019-04-25] MEDS: Aspirin EC 81mg tab ORAL SCH (08:20)
[2019-04-25] MEDS: Docusate 100mg cap ORAL SCH ×2 (08:20→20:36)
[2019-04-25] MEDS: Heparin 5000 units/ml inj SUBQ SCH ×2 (08:24→20:37)
--- NOTE | 2019-04-25 08:45 | NUR ---
NURSE NOTES: obtained consent from Jana for the CT with contrast.
--- NOTE | 2019-04-25 09:39 | NUR ---
NURSE NOTES: patient vomitted x1 and kept stable. VSS. Meaghan obtained and carried out. will cont to monitor.
--- NOTE | 2019-04-25 09:44 | General Progress Note ---
Assessment/Plan Status: stable, unchanged Assessment/Plan: (1) Constipation ICD Codes: K59.00 - Constipation, unspecified SNOMED: 92262894 (2) GERD (gastroesophageal reflux disease) ICD Codes: K21.9 - Gastro-esophageal reflux disease without esophagitis SNOMED: 301130232 (3) Yuan's esophagus ICD Codes: K22.70 - Yuan's esophagus without dysplasia SNOMED: 641609663 (4) Biliary colic Assessment/Plan s/p EGD SUMMARY OF FINDINGS: - Chronic Reflux Carditis - negative for H. Pylori - Gastritis RECOMMENDATIONS: no plans for GI procedures surgical evaluation for biliary colic symptomatic treatment colace + miralax zofran prn, reglan for persistent vomiting omeprazole 40 mg IV/PO hydration D/W surg plan HIDA scan Subjective ROS Limited/Unobtainable: Yes Allergies: Coded Allergies: No Known Allergies (Unverified , 01/03/17) Subjective vomiting Objective Last 24 Hour Vital Signs Date Time Temp Pulse Resp B/P (MAP) Pulse Ox O2 Delivery O2 Flow Rate FiO2 04/25/19 08:20 149/69 04/25/19 08:01 97.8 63 18 149/69 (95) 98 04/25/19 04:00 97.9 64 18 130/62 (84) 04/25/19 00:00 98.0 70 18 130/68 (88) 04/24/19 21:00 Room Air 04/24/19 20:00 98.0 76 18 145/71 (95) 04/24/19 18:18 152/73 04/24/19 16:00 97.8 65 18 135/75 (95) 99 04/24/19 12:00 98.3 69 18 148/76 (100) 98 Intake and Output 04/24/19 04/25/19 18:59 06:59 Intake Total 1590 ml 200 ml Output Total 1000 ml Balance 1590 ml -800 ml Intake Oral 840 ml 200 ml IV Total 750 ml Output Urine Total 1000 ml # Voids 4 5 Laboratory Tests 04/25/19 05:45: White Blood Count 3.9L, Red Blood Count 3.93L, Hemoglobin 11.0L, Hematocrit 32.9L, Mean Corpuscular Volume 84, Mean Corpuscular Hemoglobin 28.0, Mean Corpuscular Hemoglobin Concent 33.5, Red Cell Distribution Width 11.7, Platelet Count 244, Mean Platelet Volume 6.3L, Neutrophils (%) (Auto) 46.2, Lymphocytes ( %) (Auto) 38.0, Monocytes (%) (Auto) 9.9, Eosinophils (%) (Auto) 5.0H, Basophils (%) (Auto) 1.0, Erythrocyte Sedimentation Rate 17, Prothrombin Time 10.0, Prothromb Time International Ratio 0.9, Activated Partial Thromboplast Time 29, Sodium Level 136, Potassium Level 4.1, Chloride Level 103, Carbon Dioxide Level 24, Anion Gap 9, Blood Urea Nitrogen 5L, Creatinine 0.9, Estimat Glomerular Filtration Rate , Glucose Level 85, Calcium Level 8.9, Total Bilirubin 0.4, Aspartate Amino Transf (AST/SGOT) 17, Alanine Aminotransferase ( ALT/SGPT) 19, Alkaline Phosphatase 60, C-Reactive Protein, Quantitative < 0.4, Total Protein 6.3L, Albumin 3.1L, Globulin 3.2, Albumin/Globulin Ratio 1.0, Amylase Level 86, Lipase 112 Height (Feet): 5 Height (Inches): 1.00 Weight (Pounds): 139 General Appearance: alert EENT: normal ENT inspection Neck: supple Cardiovascular: normal rate Respiratory/Chest: decreased breath sounds Abdomen: soft, decreased bowel sounds, tender Extremities: non-tender Frederick Arriaza MD Apr 25, 2019 09:44
[2019-04-25] MEDS ORDERED: Morphine Sulfate 2mg/ml Inj(IV/IM USE ONLY) IVP PRN (10:15)
[2019-04-25] MEDS ORDERED: HYDROcodone/Acetamin 5/325 tab ORAL PRN ×2 (11:00→17:00)
--- NOTE | 2019-04-25 11:37 | General Progress Note ---
Assessment/Plan Problem List: (1) Hyponatremia ICD Codes: E87.1 - Hypo-osmolality and hyponatremia SNOMED: 49356007 (2) GERD (gastroesophageal reflux disease) ICD Codes: K21.9 - Gastro-esophageal reflux disease without esophagitis SNOMED: 878274488 (3) Yuan's esophagus ICD Codes: K22.70 - Yuan's esophagus without dysplasia SNOMED: 112776610 (4) HTN (hypertension) ICD Codes: I10 - Essential (primary) hypertension SNOMED: 64080027 (5) Cholelithiasis ICD Codes: K80.20 - Calculus of gallbladder without cholecystitis without obstruction SNOMED: 615473989 (6) Biliary colic ICD Codes: K80.50 - Calculus of bile duct without cholangitis or cholecystitis without obstruction SNOMED: 68703003 Status: stable, unchanged Assessment/Plan: 74-year-old female with history of hyponatremia, hypotension, Yuan's esophagus, gastritis and GERD, hiatal hernia presented to the hospital with nausea and vomiting. Exam unremarkable and she was alert and oriented x3. Laboratory investigations revealed sodium of 126, potassium 3.6, chloride 92, BUN 12, creatinine 0.8, glucose 102, normal transaminases, lipase 130, troponin negative, TSH 1.59, urine sodium 20. Urinalysis: 2+ leukoesterase, WBC 5-10, nitrite negative, RBC 0-2, bacteria few. CT head: Normal noncontrast CT head. 1. Hyponatremia. Hypovolemic due to excessive nausea and vomiting. Resolved We will replace fluids by giving her normal saline at 150 mL/h. reduced to 75 ml /hr. stop today since she is eating 2. Gastritis. Yuan's esophagus and GERD. cholelithiasis. Biliary colic. PPI Gastroenterology consult with Dr. Arriaza appreciated Follow-up biopsy results EGD from February 2019- mild to moderate chronic gastritis, no h.pylori. abdominal ultrasound notable for gallstone. Will refer for outpatient cholecystectomy upon discharge. persistent abdominal pain now after eating. Will repeat LFTs. surgical consult with Dr. Garcia 3. Hypertension. Hold antihypertensive medications from home due to soft BP 4. Hypokalemia. Encourage p.o. intake and replace as needed. I spent 40 minutes on this encounter. ? 50% spent on counselling and care coordination. Subjective Allergies: Coded Allergies: No Known Allergies (Unverified , 01/03/17) Subjective abdominal pain is back after eating. RUQ, going ot the back Objective Last 24 Hour Vital Signs Date Time Temp Pulse Resp B/P (MAP) Pulse Ox O2 Delivery O2 Flow Rate FiO2 04/25/19 09:00 Room Air 04/25/19 08:20 149/69 04/25/19 08:01 97.8 63 18 149/69 (95) 98 04/25/19 04:00 97.9 64 18 130/62 (84) 04/25/19 00:00 98.0 70 18 130/68 (88) 04/24/19 21:00 Room Air 04/24/19 20:00 98.0 76 18 145/71 (95) 04/24/19 18:18 152/73 04/24/19 16:00 97.8 65 18 135/75 (95) 99 04/24/19 12:00 98.3 69 18 148/76 (100) 98 Intake and Output 04/24/19 04/25/19 18:59 06:59 Intake Total 1590 ml 200 ml Output Total 1000 ml Balance 1590 ml -800 ml Intake Oral 840 ml 200 ml IV Total 750 ml Output Urine Total 1000 ml # Voids 4 5 Laboratory Tests 04/25/19 05:45: White Blood Count 3.9L, Red Blood Count 3.93L, Hemoglobin 11.0L, Hematocrit 32.9L, Mean Corpuscular Volume 84, Mean Corpuscular Hemoglobin 28.0, Mean Corpuscular Hemoglobin Concent 33.5, Red Cell Distribution Width 11.7, Platelet Count 244, Mean Platelet Volume 6.3L, Neutrophils (%) (Auto) 46.2, Lymphocytes ( %) (Auto) 38.0, Monocytes (%) (Auto) 9.9, Eosinophils (%) (Auto) 5.0H, Basophils (%) (Auto) 1.0, Erythrocyte Sedimentation Rate 17, Prothrombin Time 10.0, Prothromb Time International Ratio 0.9, Activated Partial Thromboplast Time 29, Sodium Level 136, Potassium Level 4.1, Chloride Level 103, Carbon Dioxide Level 24, Anion Gap 9, Blood Urea Nitrogen 5L, Creatinine 0.9, Estimat Glomerular Filtration Rate , Glucose Level 85, Calcium Level 8.9, Total Bilirubin 0.4, Aspartate Amino Transf (AST/SGOT) 17, Alanine Aminotransferase ( ALT/SGPT) 19, Alkaline Phosphatase 60, C-Reactive Protein, Quantitative < 0.4, Total Protein 6.3L, Albumin 3.1L, Globulin 3.2, Albumin/Globulin Ratio 1.0, Amylase Level 86, Lipase 112 Height (Feet): 5 Height (Inches): 1.00 Weight (Pounds): 139 Objective General Appearance: normal inspection, well appearing, no apparent distress, alert, awake Head: atraumatic ENT: normal ENT inspection, hearing grossly normal, normal voice Neck: normal inspection, full range of motion, supple, no bony tend Respiratory: normal inspection, lungs clear, normal breath sounds, no respiratory distress, no retraction, no wheezing Cardiovascular : regular rate, rhythm, no m/r/g, no edema Gastrointestinal: RUQ tenderness, soft, non distended, normal bowel sounds, no guarding Genitourinary: no CVA tenderness Musculoskeletal: normal inspection, back normal, normal range of motion Neurologic: normal inspection, alert, oriented x3, responsive, 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 Apr 25, 2019 11:37
--- NOTE | 2019-04-25 11:38 | NUR ---
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 ADDITIONAL INFORMATION FAXED TO YING ! [phone]. MADE AWARE. YING [phone]
[2019-04-25] MEDS ORDERED: DiphenhydrAMINE 50mg/ml Inj IVP PRN (11:45)
[2019-04-25] MEDS ORDERED: Hydromorphone 0.5mg/0.5ml inj IVP PRN ×2 (11:45→15:45)
--- NOTE | 2019-04-25 11:51 | General Progress Note ---
Assessment/Plan Problem List: (1) Hyponatremia ICD Codes: E87.1 - Hypo-osmolality and hyponatremia SNOMED: 71283564 (2) GERD (gastroesophageal reflux disease) ICD Codes: K21.9 - Gastro-esophageal reflux disease without esophagitis SNOMED: 667437356 (3) Yuan's esophagus ICD Codes: K22.70 - Yuan's esophagus without dysplasia SNOMED: 447173237 (4) HTN (hypertension) ICD Codes: I10 - Essential (primary) hypertension SNOMED: 48327354 (5) Cholelithiasis ICD Codes: K80.20 - Calculus of gallbladder without cholecystitis without obstruction SNOMED: 341296698 (6) Biliary colic ICD Codes: K80.50 - Calculus of bile duct without cholangitis or cholecystitis without obstruction SNOMED: 14262052 Status: stable, not improved Assessment/Plan: 74-year-old female with history of hyponatremia, hypotension, Yuan's esophagus, gastritis and GERD, hiatal hernia presented to the hospital with nausea and vomiting. Exam unremarkable and she was alert and oriented x3. Laboratory investigations revealed sodium of 126, potassium 3.6, chloride 92, BUN 12, creatinine 0.8, glucose 102, normal transaminases, lipase 130, troponin negative, TSH 1.59, urine sodium 20. Urinalysis: 2+ leukoesterase, WBC 5-10, nitrite negative, RBC 0-2, bacteria few. CT head: Normal noncontrast CT head. 1. Hyponatremia. Hypovolemic due to excessive nausea and vomiting. Resolved We will replace fluids by giving her normal saline at 150 mL/h. reduced to 75 ml /hr. 2. Gastritis. Yuan's esophagus and GERD. cholelithiasis. Biliary colic. PERSISTENT n/v and RUQ pain. PPI Gastroenterology consult with Dr. Arriaza appreciated Follow-up biopsy results EGD from February 2019- mild to moderate chronic gastritis, no h.pylori. abdominal ultrasound notable for gallstone. Will refer for outpatient cholecystectomy upon discharge. persistent abdominal pain now after eating. repeat LFTs. surgical consult with Dr. Gracia. HIDA scan Plan was to transfer patient [facility], family refused transfer last night since too far, insurance agreed today not fair to patient since hospital [place] patient[place]. NPO Pain control 3. Hypertension. Hold antihypertensive medications from home due to soft BP 4. Hypokalemia. Encourage p.o. intake and replace as needed. I spent 40 minutes on this encounter. > 50% spent on counselling and care coordination. Subjective Date patient seen: Apr 25, 2019 ROS Limited/Unobtainable: No Constitutional: Denies: no symptoms, chills, diaphoresis, fever, malaise, weakness, other HEENT: Denies: no symptoms, eye pain, blurred vision, tearing, double vision, ear pain, ear discharge, nose pain, nose congestion, throat pain, throat swelling, mouth pain, mouth swelling, other Cardiovascular: Denies: no symptoms, chest pain, edema, irregular heart rate, lightheadedness, palpitations, syncope, other Respiratory: Denies: no symptoms, cough, orthopnea, shortness of breath, SOB with excertion, SOB at rest, sputum, stridor, wheezing, other Gastrointestinal/Abdominal: Reports: abdominal pain - RUQ, nausea, vomiting; Denies: no symptoms, abdomen distended, black stools, tarry stools, blood in stool, constipated, diarrhea, difficulty swallowing, poor appetite, poor fluid intake, rectal bleeding, other Genitourinary: Denies: no symptoms, burning, discharge, frequency, flank pain, hematuria, incontinence, pain, urgency, other Neurologic/Psychiatric: Denies: no symptoms, anxiety, depressed, emotional problems, headache, numbness, paresthesia, pre-existing deficit, seizure, tingling, tremors, weakness, other Endocrine: Denies: no symptoms, excessive sweating, flushing, intolerance to cold, intolerance to heat, increased hunger, increased thirst, increased urine, unexplained weight gain, unexplained weight loss, other Hematologic/Lymphatic: Denies: no symptoms, anemia, easy bleeding, easy bruising, other Allergies: Coded Allergies: No Known Allergies (Unverified , 01/03/17) Subjective abdominal pain is back after eating. RUQ, going to the back. Persistent. Afebrile Objective Last 24 Hour Vital Signs Date Time Temp Pulse Resp B/P (MAP) Pulse Ox O2 Delivery O2 Flow Rate FiO2 04/25/19 09:00 Room Air 04/25/19 08:20 149/69 04/25/19 08:01 97.8 63 18 149/69 (95) 98 9/27/19 04:00 97.9 64 18 130/62 (84) 04/25/19 00:00 98.0 70 18 130/68 (88) 04/24/19 21:00 Room Air 04/24/19 20:00 98.0 76 18 145/71 (95) 04/24/19 18:18 152/73 04/24/19 16:00 97.8 65 18 135/75 (95) 99 04/24/19 12:00 98.3 69 18 148/76 (100) 98 Intake and Output 04/24/19 04/25/19 18:59 06:59 Intake Total 1590 ml 200 ml Output Total 1000 ml Balance 1590 ml -800 ml Intake Oral 840 ml 200 ml IV Total 750 ml Output Urine Total 1000 ml # Voids 4 5 Laboratory Tests 04/25/19 05:45: White Blood Count 3.9L, Red Blood Count 3.93L, Hemoglobin 11.0L, Hematocrit 32.9L, Mean Corpuscular Volume 84, Mean Corpuscular Hemoglobin 28.0, Mean Corpuscular Hemoglobin Concent 33.5, Red Cell Distribution Width 11.7, Platelet Count 244, Mean Platelet Volume 6.3L, Neutrophils (%) (Auto) 46.2, Lymphocytes ( %) (Auto) 38.0, Monocytes (%) (Auto) 9.9, Eosinophils (%) (Auto) 5.0H, Basophils (%) (Auto) 1.0, Erythrocyte Sedimentation Rate 17, Prothrombin Time 10.0, Prothromb Time International Ratio 0.9, Activated Partial Thromboplast Time 29, Sodium Level 136, Potassium Level 4.1, Chloride Level 103, Carbon Dioxide Level 24, Anion Gap 9, Blood Urea Nitrogen 5L, Creatinine 0.9, Estimat Glomerular Filtration Rate , Glucose Level 85, Calcium Level 8.9, Total Bilirubin 0.4, Aspartate Amino Transf (AST/SGOT) 17, Alanine Aminotransferase ( ALT/SGPT) 19, Alkaline Phosphatase 60, C-Reactive Protein, Quantitative < 0.4, Total Protein 6.3L, Albumin 3.1L, Globulin 3.2, Albumin/Globulin Ratio 1.0, Amylase Level 86, Lipase 112 Height (Feet): 5 Height (Inches): 1.00 Weight (Pounds): 139 Objective General Appearance: normal inspection, well appearing, no apparent distress, alert, awake Head: atraumatic ENT: normal ENT inspection, hearing grossly normal, normal voice Neck: normal inspection, full range of motion, supple, no bony tend Respiratory: normal inspection, lungs clear, normal breath sounds, no respiratory distress, no retraction, no wheezing Cardiovascular : regular rate, rhythm, no m/r/g, no edema Gastrointestinal: RUQ tenderness, soft, non distended, normal bowel sounds, no guarding Genitourinary: no CVA tenderness Musculoskeletal: normal inspection, back normal, normal range of motion Neurologic: normal inspection, alert, oriented x3, responsive, 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 Apr 25, 2019 11:51
[2019-04-25 12:00] VITALS: BP 132/68
--- NOTE | 2019-04-25 12:06 | NUR ---
NURSE NOTES: handoff done with Ronald for HIDA SCAN.
--- NOTE | 2019-04-25 13:29 | NUR ---
NURSE NOTES: back to the unit from [facility].
--- NOTE | 2019-04-25 15:23 | NUR ---
NURSE NOTES: patient picked up for the third time for HIDA SCAN. will cont to monitor.
--- NOTE | 2019-04-25 15:32 | Diagnostic Imaging Report ---
Indication: Abdominal Pain Technique: 5.5 mCi of technetium 99 m-Choletec was injected intravenously. Planar imaging of the abdomen was then performed every 5 minutes up to 30 minutes and every 10 minutes up to one hour. Oblique views were also obtained. Findings: There is prompt uptake within the liver with good washout of radiotracer from the liver on subsequent imaging. There is excretion into the biliary ducts. Gallbladder activity is present in a timely fashion indicating patency of the cystic duct. There is no bowel activity up to 2 1/2 hours. There is good washout from the liver suggesting that there is no cholestasis or obstruction. However CBD patency cannot be confirmed. If there is clinical concern for biliary obstruction such as elevated total bilirubin, suggest further evaluation with MRCP and/or ERCP. IMPRESSION: Cystic duct is patent. CBD patency cannot be confirmed on this examination. There is good washout of tracer from the liver suggesting there is no cholestasis which argues against CBD obstruction. However please correlate clinically with bilirubin and evaluate further as needed.
[2019-04-25 16:00] VITALS: BP 144/71
--- NOTE | 2019-04-25 17:21 | Surgery Progress Note ---
Surgery Progress Note Subjective Additional Comments hida noted. no cystic duct obstruction labs okay c/o right sided pain. upper and lower today + emesis Objective Last 24 Hour Vital Signs Date Time Temp Pulse Resp B/P (MAP) Pulse Ox O2 Delivery O2 Flow Rate FiO2 04/25/19 17:11 144/71 04/25/19 16:00 98.1 60 18 144/71 (95) 98 04/25/19 12:00 97.9 67 18 132/68 (89) 98 04/25/19 11:32 97.8 04/25/19 09:00 Room Air 04/25/19 08:20 149/69 04/25/19 08:01 97.8 63 18 149/69 (95) 98 04/25/19 04:00 97.9 64 18 130/62 (84) 04/25/19 00:00 98.0 70 18 130/68 (88) 04/24/19 21:00 Room Air 04/24/19 20:00 98.0 76 18 145/71 (95) 04/24/19 18:18 152/73 I&O Intake and Output 04/24/19 04/25/19 19:00 07:00 Intake Total 1590 ml 200 ml Output Total 1000 ml Balance 1590 ml -800 ml Intake Oral 840 ml 200 ml IV Total 750 ml Output Urine Total 1000 ml # Voids 4 5 Cardiovascular: RSR Respiratory: clear Abdomen: soft, tenderness, present bowel sounds, non-distended Extremities: no edema, no tenderness, no cyanosis Laboratory Tests Test 04/25/19 05:45 White Blood Count 3.9 K/UL (4.8-10.8) L Red Blood Count 3.93 M/UL (4.20-5.40) L Hemoglobin 11.0 G/DL (12.0-16.0) L Hematocrit 32.9 % (37.0-47.0) L Mean Corpuscular Volume 84 FL (80-99) Mean Corpuscular Hemoglobin 28.0 PG (27.0-31.0) Mean Corpuscular Hemoglobin Concent 33.5 G/DL (32.0-36.0) Red Cell Distribution Width 11.7 % (11.6-14.8) Platelet Count 244 K/UL (150-450) Mean Platelet Volume 6.3 FL (6.5-10.1) L Neutrophils (%) (Auto) 46.2 % (45.0-75.0) Lymphocytes (%) (Auto) 38.0 % (20.0-45.0) Monocytes (%) (Auto) 9.9 % (1.0-10.0) Eosinophils (%) (Auto) 5.0 % (0.0-3.0) H Basophils (%) (Auto) 1.0 % (0.0-2.0) Erythrocyte Sedimentation Rate 17 MM/HR (0-30) Prothrombin Time 10.0 SEC (9.30-11.50) Prothromb Time International Ratio 0.9 (0.9-1.1) Activated Partial Thromboplast Time 29 SEC (23-33) Sodium Level 136 MMOL/L (136-145) Potassium Level 4.1 MMOL/L (3.5-5.1) Chloride Level 103 MMOL/L (98-107) Carbon Dioxide Level 24 MMOL/L (21-32) Anion Gap 9 mmol/L (5-15) Blood Urea Nitrogen 5 mg/dL (7-18) L Creatinine 0.9 MG/DL (0.55-1.30) Estimat Glomerular Filtration Rate mL/min (>60) Glucose Level 85 MG/DL (74-106) Calcium Level 8.9 MG/DL (8.5-10.1) Total Bilirubin 0.4 MG/DL (0.2-1.0) Aspartate Amino Transf (AST/SGOT) 17 U/L (15-37) Alanine Aminotransferase (ALT/SGPT) 19 U/L (12-78) Alkaline Phosphatase 60 U/L (46-116) C-Reactive Protein, Quantitative < 0.4 mg/dL (0.00-0.90) Total Protein 6.3 G/DL (6.4-8.2) L Albumin 3.1 G/DL (3.4-5.0) L Globulin 3.2 g/dL Albumin/Globulin Ratio 1.0 (1.0-2.7) Amylase Level 86 U/L (25-115) Lipase 112 U/L (73-393) Plan Problems: (1) Abdominal pain Assessment & Plan: 74F with RUQ abdominal discomfort. currently n/v resolved. no fever or chills. labs okay. no leukocytosis. no shift. lft's okay US with gallstones but no signs of acute inflammation exam benign. mild discomfort in RUQ tolerating diet but not much appetite n/v today right upper and lower pain HIDA noted no acute surgical intervention planned okay for diet as tolerated AM labs CT ordered thank you will follow with recs (2) Biliary colic Vlad Garcia Apr 25, 2019 17:21
[2019-04-25] MEDS ORDERED: Omnipaque-300 100ml vial INJ PRN (17:30)
[2019-04-25] MEDS ORDERED: Gastrograffin 30ml ORAL PRN (17:30)
--- NOTE | 2019-04-25 19:02 | NUR ---
HAND-OFF: Report given to [facility].
[2019-04-25 20:00] VITALS: BP 143/68
--- NOTE | 2019-04-25 20:13 | NUR ---
NURSE NOTES: RECEIVED PT FROM NORMA GOLDSTEIN. PT IS AWAKE, AAOX4, ON ROOM AIR, NO ACUTE DISTRESS NOTED. FAMILY MEMBERS AT BEDSIDE. PT IS TOLERATING CLEAR LIQUID WELL. IV ON LEFT HAND 25G IS INTACT AND PATENT, RUNNING NS AT 75ML/HR. BED IS LOCKED AND LOW, BED ALARMS ACTIVE, SIDE RAILS UP X2 AND CALL LIGHT IS WITHIN REACH. WILL CONTINUE TO MONITOR.
[2019-04-26] VITALS: BP 108/64
[2019-04-26 04:00] VITALS: BP 107/60
--- NOTE | 2019-04-26 05:38 | NUR ---
NURSE NOTES: D/C IV ON LEFT HAND 20G DUE TO LEAKING, INSERTED NEW IV ON LEFT HAND 24G.
--- NOTE | 2019-04-26 07:03 | NUR ---
HAND-OFF: Report given to NORMA Vivas. Pt is in stable condition.
--- NOTE | 2019-04-26 07:25 | NUR ---
NURSE NOTES: Received patient in bed, awake, alert, oriented x4, Faroese speaking only, no acute distress noted, able to make her needs known. IV site is patent and intact, observed NPO for CT of pelvis w/ contrast today. siderails are upx3, call light is within reach, bed is locked, lowered, and alarm is on. Will continue to monitor for comfort and safety.
[2019-04-26 08:00] VITALS: BP 134/67
[2019-04-26 08:09] LABS: BASOPHILS % (AUTO) 1.6 % (0.0-2.0); EOSINOPHILS % (AUTO) 5.7 % (0.0-3.0); HEMATOCRIT 33.4 % (37.0-47.0); HEMOGLOBIN 11.1 G/DL (12.0-16.0); LYMPHOCYTES % (AUTO) 32.1 % (20.0-45.0); MEAN CORPUSCULAR VOLUME 85 FL (80-99); MONOCYTES % (AUTO) 9.4 % (1.0-10.0); NEUTROPHILS % (AUTO) 51.2 % (45.0-75.0); PLATELET COUNT 234 K/UL (150-450); RED BLOOD COUNT 3.95 M/UL (4.20-5.40); RED CELL DISTRIBUTION WIDTH 12.1 % (11.6-14.8); WHITE BLOOD COUNT 3.6 K/UL (4.8-10.8)
[2019-04-26 08:53] LABS: ALANINE AMINOTRANSFERASE 21 U/L (12-78); ALBUMIN 3.2 G/DL (3.4-5.0); ALKALINE PHOSPHATASE 59 U/L (46-116); ANION GAP 7 mmol/L (5-15); ASPARTATE AMINO TRANSFERASE 24 U/L (15-37); BILIRUBIN,TOTAL 0.5 MG/DL (0.2-1.0); BLOOD UREA NITROGEN 5 mg/dL (7-18); CALCIUM 8.9 MG/DL (8.5-10.1); CARBON DIOXIDE 26 MMOL/L (21-32); CHLORIDE 104 MMOL/L (98-107); CREATININE 0.9 MG/DL (0.55-1.30); SODIUM 137 MMOL/L (136-145)
[2019-04-26] MEDS: Docusate 100mg cap ORAL SCH ×2 (09:35→20:59)
[2019-04-26] MEDS: Aspirin EC 81mg tab ORAL SCH (09:36)
[2019-04-26] MEDS: Lisinopril 20mg tab ORAL SCH ×2 (09:36→17:32)
[2019-04-26] MEDS: Heparin 5000 units/ml inj SUBQ SCH ×2 (09:39→21:01)
[2019-04-26 12:00] VITALS: BP 143/68
--- NOTE | 2019-04-26 12:36 | Surgery Progress Note ---
Surgery Progress Note Subjective Additional Comments Patient seen and examined bedside. No acute events. Denies any pain this morning. No nausea or vomiting. Has been n.p.o. for CAT scan. Pending CT scan today. Family at bedside Long discussion had about care plan and today's plans Objective Last 24 Hour Vital Signs Date Time Temp Pulse Resp B/P (MAP) Pulse Ox O2 Delivery O2 Flow Rate FiO2 04/26/19 12:00 98.0 65 18 143/68 (93) 98 04/26/19 09:36 134/67 04/26/19 09:00 Room Air 04/26/19 08:00 98.7 63 19 134/67 (89) 98 04/26/19 04:00 97.8 57 18 107/60 (76) 96 04/26/19 00:00 97.6 59 18 108/64 (79) 96 04/25/19 21:00 Room Air 04/25/19 20:00 98.1 77 19 143/68 (93) 95 04/25/19 17:11 144/71 04/25/19 16:00 98.1 60 18 144/71 (95) 98 I&O Intake and Output 04/25/19 04/26/19 18:59 06:59 Intake Total 375 ml 900 ml Balance 375 ml 900 ml IV Total 375 ml 900 ml Cardiovascular: RSR Respiratory: clear Abdomen: soft, flat, non-tender, present bowel sounds, non-distended Extremities: no edema, no tenderness, no cyanosis Laboratory Tests Test 04/26/19 06:27 White Blood Count 3.6 K/UL (4.8-10.8) L Red Blood Count 3.95 M/UL (4.20-5.40) L Hemoglobin 11.1 G/DL (12.0-16.0) L Hematocrit 33.4 % (37.0-47.0) L Mean Corpuscular Volume 85 FL (80-99) Mean Corpuscular Hemoglobin 28.1 PG (27.0-31.0) Mean Corpuscular Hemoglobin Concent 33.3 G/DL (32.0-36.0) Red Cell Distribution Width 12.1 % (11.6-14.8) Platelet Count 234 K/UL (150-450) Mean Platelet Volume 5.9 FL (6.5-10.1) L Neutrophils (%) (Auto) 51.2 % (45.0-75.0) Lymphocytes (%) (Auto) 32.1 % (20.0-45.0) Monocytes (%) (Auto) 9.4 % (1.0-10.0) Eosinophils (%) (Auto) 5.7 % (0.0-3.0) H Basophils (%) (Auto) 1.6 % (0.0-2.0) Sodium Level 137 MMOL/L (136-145) Potassium Level 4.0 MMOL/L (3.5-5.1) Chloride Level 104 MMOL/L (98-107) Carbon Dioxide Level 26 MMOL/L (21-32) Anion Gap 7 mmol/L (5-15) Blood Urea Nitrogen 5 mg/dL (7-18) L Creatinine 0.9 MG/DL (0.55-1.30) Estimat Glomerular Filtration Rate mL/min (>60) Glucose Level 87 MG/DL (74-106) Calcium Level 8.9 MG/DL (8.5-10.1) Total Bilirubin 0.5 MG/DL (0.2-1.0) Aspartate Amino Transf (AST/SGOT) 24 U/L (15-37) Alanine Aminotransferase (ALT/SGPT) 21 U/L (12-78) Alkaline Phosphatase 59 U/L (46-116) Total Protein 6.5 G/DL (6.4-8.2) Albumin 3.2 G/DL (3.4-5.0) L Globulin 3.3 g/dL Albumin/Globulin Ratio 1.0 (1.0-2.7) Plan Problems: (1) Abdominal pain Assessment & Plan: 74F with RUQ abdominal discomfort. currently n/v resolved. no fever or chills. labs okay. no leukocytosis. no shift. lft's okay US with gallstones but no signs of acute inflammation exam benign. mild discomfort in RUQ tolerating diet but not much appetite n/v today right upper and lower pain HIDA noted no acute surgical intervention planned okay for diet as tolerated AM labs CT pending thank you will follow with recs (2) Biliary colic Vlad Garcia Apr 26, 2019 12:36
--- NOTE | 2019-04-26 12:37 | NUR ---
NURSE NOTES: able to tolerate oral contrast for CT. [facility] will pick pack worker patient @ 1345H.
--- NOTE | 2019-04-26 13:23 | General Progress Note ---
Assessment/Plan Status: stable, not improved Assessment/Plan: (1) Constipation ICD Codes: K59.00 - Constipation, unspecified SNOMED: 19671313 (2) GERD (gastroesophageal reflux disease) ICD Codes: K21.9 - Gastro-esophageal reflux disease without esophagitis SNOMED: 848415628 (3) Yuan's esophagus ICD Codes: K22.70 - Yuan's esophagus without dysplasia SNOMED: 100466002 (4) Biliary colic Assessment/Plan s/p EGD SUMMARY OF FINDINGS: - Chronic Reflux Carditis - negative for H. Pylori - Gastritis RECOMMENDATIONS: no plans for GI procedures surgical evaluation for biliary colic symptomatic treatment colace + miralax zofran prn, reglan for persistent vomiting omeprazole 40 mg IV/PO hydration HIDA scan >>> neg pending CT Subjective ROS Limited/Unobtainable: Yes Allergies: Coded Allergies: No Known Allergies (Unverified , 01/03/17) Subjective no abd pain no vomiting Objective Last 24 Hour Vital Signs Date Time Temp Pulse Resp B/P (MAP) Pulse Ox O2 Delivery O2 Flow Rate FiO2 04/26/19 12:00 98.0 65 18 143/68 (93) 98 04/26/19 09:36 134/67 04/26/19 09:00 Room Air 04/26/19 08:00 98.7 63 19 134/67 (89) 98 04/26/19 04:00 97.8 57 18 107/60 (76) 96 04/26/19 00:00 97.6 59 18 108/64 (79) 96 04/25/19 21:00 Room Air 04/25/19 20:00 98.1 77 19 143/68 (93) 95 04/25/19 17:11 144/71 04/25/19 16:00 98.1 60 18 144/71 (95) 98 Intake and Output 04/25/19 04/26/19 18:59 06:59 Intake Total 375 ml 900 ml Balance 375 ml 900 ml IV Total 375 ml 900 ml Laboratory Tests 04/26/19 06:27: White Blood Count 3.6L, Red Blood Count 3.95L, Hemoglobin 11.1L, Hematocrit 33.4L, Mean Corpuscular Volume 85, Mean Corpuscular Hemoglobin 28.1, Mean Corpuscular Hemoglobin Concent 33.3, Red Cell Distribution Width 12.1, Platelet Count 234, Mean Platelet Volume 5.9L, Neutrophils (%) (Auto) 51.2, Lymphocytes ( %) (Auto) 32.1, Monocytes (%) (Auto) 9.4, Eosinophils (%) (Auto) 5.7H, Basophils (%) (Auto) 1.6, Sodium Level 137, Potassium Level 4.0, Chloride Level 104, Carbon Dioxide Level 26, Anion Gap 7, Blood Urea Nitrogen 5L, Creatinine 0.9, Estimat Glomerular Filtration Rate , Glucose Level 87, Calcium Level 8.9, Total Bilirubin 0.5, Aspartate Amino Transf (AST/SGOT) 24, Alanine Aminotransferase (ALT/SGPT) 21, Alkaline Phosphatase 59, Total Protein 6.5, Albumin 3.2L, Globulin 3.3, Albumin/Globulin Ratio 1.0 Height (Feet): 5 Height (Inches): 1.00 Weight (Pounds): 139 General Appearance: alert EENT: normal ENT inspection Neck: supple Cardiovascular: normal rate Respiratory/Chest: decreased breath sounds Abdomen: normal bowel sounds, non tender, soft Extremities: non-tender Frederick Arriaza MD Apr 26, 2019 13:23
--- NOTE | 2019-04-26 14:23 | NUR ---
NURSE NOTES: CT completed. resumed diet
--- NOTE | 2019-04-26 15:49 | Diagnostic Imaging Report ---
EXAM: CT Abdomen and Pelvis With Intravenous Contrast CLINICAL HISTORY: ABD PAIN TECHNIQUE: Axial computed tomography images of the abdomen and pelvis with intravenous contrast. Sagittal and coronal reformatted images were created and reviewed. CTDI is 31.90 mGy and DLP is 1658.70 mGy-cm. One or more of the following dose reduction techniques were used: automated exposure control, adjustment of the mA and or kV according to patient size, use of iterative reconstruction technique. COMPARISON: CT abdomen pelvis dated 02 16 19. FINDINGS: Lung bases: 4 mm calcified granuloma in the dependent right lower lobe. The lung bases are otherwise clear. Mediastinum: Small hiatal hernia. ABDOMEN: Liver: Stable appearance of a 1.7 cm hypodensity in the posterior right hepatic lobe near the dome, possibly a small cyst or hemangioma. The liver otherwise appears unremarkable. Gallbladder and bile ducts: Cholelithiasis with a sub-centimeter stone in the gallbladder neck. No gallbladder wall thickening. No biliary ductal dilatation. Pancreas: Unremarkable. No mass. No ductal dilation. Spleen: Unremarkable. No splenomegaly. Adrenals: Unremarkable. No mass. Kidneys and ureters: Subcentimeter cortical hypodensities in bilateral kidneys, too small to further characterize, likely small simple cysts. The kidneys otherwise appear unremarkable. No hydronephrosis or hydroureter. No perinephric stranding. Stomach and bowel: Mild sigmoid colonic diverticulosis without evidence of acute inflammation. Remainder of the colon appears unremarkable. No abnormally distended loops of small bowel. GE junction and stomach appear unremarkable. No mucosal thickening. PELVIS: Appendix: No findings to suggest acute appendicitis. Bladder: Unremarkable. No visible stones. Reproductive: Unremarkable as visualized. ABDOMEN and PELVIS: Intraperitoneal space: Unremarkable. No free air. No significant fluid collection. Bones joints: Incidental note of grade 1 retrolisthesis of L5 relative to S1 with 6 mm offset. No acute fracture. No dislocation. Soft tissues: Unremarkable. Vasculature: Unremarkable. No abdominal aortic aneurysm. Lymph nodes: Unremarkable. No enlarged lymph nodes. IMPRESSION: 1. Cholelithiasis with a sub-centimeter stone in the gallbladder neck. No gallbladder wall thickening. No ductal dilatation. 2. Stable appearance of a 1.7 cm hypodensity in the posterior right hepatic lobe near the dome, possibly a small cyst or hemangioma. 3. Mild sigmoid colonic diverticulosis without evidence of acute inflammation. 4. Subcentimeter cortical hypodensities in bilateral kidneys, too small to further characterize, likely small simple cysts. 5. Small hiatal hernia. 6. Incidental note of grade 1 retrolisthesis of L5 relative to S1 with 6 mm offset.
[2019-04-26 16:02] VITALS: BP 145/72
--- NOTE | 2019-04-26 17:42 | General Progress Note ---
Assessment/Plan Status: stable, not improved Assessment/Plan: Jennifer Carranza is a 74-year-old female with history of hyponatremia, hypotension, Yuan's esophagus, gastritis and GERD, hiatal hernia presented to the hospital with nausea and vomiting. Exam unremarkable and she was alert and oriented x3. Laboratory investigations revealed sodium of 126, potassium 3.6, chloride 92, BUN 12, creatinine 0.8, glucose 102, normal transaminases, lipase 130, troponin negative, TSH 1.59, urine sodium 20. Urinalysis: 2+ leukoesterase, WBC 5-10, nitrite negative, RBC 0-2, bacteria few. CT head: Normal noncontrast CT head. 1. Hyponatremia. Hypovolemic due to excessive nausea and vomiting. Resolved - IVF with NS @75cc/hr - Na 137 today, hyponatremia resolved 2. Gastritis. Yuan's esophagus and GERD. cholelithiasis. Biliary colic. PERSISTENT n/v and RUQ pain. Now improving. PPI Gastroenterology consult with Dr. Arriaza appreciated Follow-up biopsy results EGD from February 2019- mild to moderate chronic gastritis, no h.pylori. GI - no plan for procedure abdominal ultrasound notable for gallstone. Will refer for outpatient cholecystectomy upon discharge. Surgical consult with Dr. Garcia, recs appreciated, discussed patient's case HIDA scan negative for cystic obstruction. CT A/P today with cholelithiasis and subcentimeter stone in gallbladder neck but no gallbladder wall thickening or ductal dilatation. Clear liquids then advance as tolerates 3. Hypertension. Hold antihypertensive medications from home due to soft BP 4. Hypokalemia. Replete as needed. Resolved Discussed with Dr. Garcia, discussed with RN. I spent 35 minutes on this encounter with > 50% spent on counselling and care coordination. I spent additional 35 minutes on review of patient's chart including prior records, vitals, progress notes, prior imaging, labs, [employer] operations consultant notes, etc as patient is new to me. Subjective Date patient seen: Apr 26, 2019 Allergies: Coded Allergies: No Known Allergies (Unverified , 01/03/17) All Systems: reviewed and negative except above Subjective patient seen and examined. No acute complaints. Denies abd pain, nausea, or vomiting. Per RN required zofran yesterday but no pain today and no further episodes of vomiting. Objective Last 24 Hour Vital Signs Date Time Temp Pulse Resp B/P (MAP) Pulse Ox O2 Delivery O2 Flow Rate FiO2 04/26/19 17:32 145/72 04/26/19 16:02 97.9 72 18 145/72 (96) 97 04/26/19 12:00 98.0 65 18 143/68 (93) 98 04/26/19 09:36 134/67 04/26/19 09:00 Room Air 04/26/19 08:00 98.7 63 19 134/67 (89) 98 04/26/19 04:00 97.8 57 18 107/60 (76) 96 04/26/19 00:00 97.6 59 18 108/64 (79) 96 04/25/19 21:00 Room Air 04/25/19 20:00 98.1 77 19 143/68 (93) 95 Intake and Output 04/25/19 04/26/19 19:00 07:00 Intake Total 375 ml 900 ml Balance 375 ml 900 ml IV Total 375 ml 900 ml Laboratory Tests 04/26/19 06:27: White Blood Count 3.6L, Red Blood Count 3.95L, Hemoglobin 11.1L, Hematocrit 33.4L, Mean Corpuscular Volume 85, Mean Corpuscular Hemoglobin 28.1, Mean Corpuscular Hemoglobin Concent 33.3, Red Cell Distribution Width 12.1, Platelet Count 234, Mean Platelet Volume 5.9L, Neutrophils (%) (Auto) 51.2, Lymphocytes ( %) (Auto) 32.1, Monocytes (%) (Auto) 9.4, Eosinophils (%) (Auto) 5.7H, Basophils (%) (Auto) 1.6, Sodium Level 137, Potassium Level 4.0, Chloride Level 104, Carbon Dioxide Level 26, Anion Gap 7, Blood Urea Nitrogen 5L, Creatinine 0.9, Estimat Glomerular Filtration Rate , Glucose Level 87, Calcium Level 8.9, Total Bilirubin 0.5, Aspartate Amino Transf (AST/SGOT) 24, Alanine Aminotransferase (ALT/SGPT) 21, Alkaline Phosphatase 59, Total Protein 6.5, Albumin 3.2L, Globulin 3.3, Albumin/Globulin Ratio 1.0 Height (Feet): 5 Height (Inches): 1.00 Weight (Pounds): 139 General Appearance: no apparent distress, alert Neck: supple Cardiovascular: normal peripheral pulses, normal rate, regular rhythm Respiratory/Chest: lungs clear, normal breath sounds, no respiratory distress Abdomen: normal bowel sounds, non tender, soft, no organomegaly Extremities: normal range of motion, no calf tenderness Edema: no edema noted Arm (L), no edema noted Arm (R), no edema noted Leg (L), no edema noted Leg (R), no edema noted Pedal (L), no edema noted Pedal (R), no edema noted Generalized Neurologic: alert Skin: warm/dry Keke Lehman M.D. Apr 26, 2019 17:42
--- NOTE | 2019-04-26 18:34 | NUR ---
NURSE NOTES: patient tolerating clear liquid diet. No n/v noted. ambulate to the bathroom with assist without any distress noted. son @ bedside. rested well. will cont to monitor.
--- NOTE | 2019-04-26 18:58 | NUR ---
HAND-OFF: Report given to [facility].
--- NOTE | 2019-04-26 19:30 | NUR ---
NURSE NOTES: RECEIVED PT FROM NORMA GOLDSTEIN. PT IS AWAKE, AAOX4, ON ROOM AIR, DENIES PAIN AND NAUSEA. NO ACUTE DISTRESS NOTED. FAMILY MEMBERS AT BEDSIDE. IV ON LEFT HAND 24G IS INTACT AND PATENT, RUNNING NS AT 75 ML/HR. COMMODE AT BEDSIDE. BED IS LOCKED AND LOW, BED ALARMS ACTIVE, SIDE RAILS UP X2 AND CALL LIGHT IS WITHIN REACH. WILL CONTINUE TO MONITOR.
[2019-04-26 20:00] VITALS: BP 136/59
[2019-04-27] VITALS: BP 129/62
[2019-04-27 04:00] VITALS: BP 125/60
[2019-04-27 07:09] LABS: BASOPHILS % (AUTO) 1.2 % (0.0-2.0); EOSINOPHILS % (AUTO) 5.1 % (0.0-3.0); HEMATOCRIT 36.5 % (37.0-47.0); HEMOGLOBIN 12.2 G/DL (12.0-16.0); LYMPHOCYTES % (AUTO) 26.9 % (20.0-45.0); MEAN CORPUSCULAR VOLUME 84 FL (80-99); MONOCYTES % (AUTO) 9.8 % (1.0-10.0); PLATELET COUNT 237 K/UL (150-450); RED BLOOD COUNT 4.34 M/UL (4.20-5.40); RED CELL DISTRIBUTION WIDTH 12.2 % (11.6-14.8); WHITE BLOOD COUNT 3.7 K/UL (4.8-10.8)
--- NOTE | 2019-04-27 07:21 | General Progress Note ---
Assessment/Plan Status: stable, not improved Assessment/Plan: (1) Constipation ICD Codes: K59.00 - Constipation, unspecified SNOMED: 95937728 (2) GERD (gastroesophageal reflux disease) ICD Codes: K21.9 - Gastro-esophageal reflux disease without esophagitis SNOMED: 870788378 (3) Yuan's esophagus ICD Codes: K22.70 - Yuan's esophagus without dysplasia SNOMED: 099954592 (4) Biliary colic Assessment/Plan s/p EGD SUMMARY OF FINDINGS: - Chronic Reflux Carditis - negative for H. Pylori - Gastritis RECOMMENDATIONS: no plans for GI procedures surgical evaluation for biliary colic symptomatic treatment colace + miralax zofran prn, reglan for persistent vomiting omeprazole 40 mg IV/PO hydration HIDA scan >>> neg CT>>> reviewed advance diet Subjective ROS Limited/Unobtainable: Yes Allergies: Coded Allergies: No Known Allergies (Unverified , 01/03/17) Subjective no abd pain no vomiting Objective Last 24 Hour Vital Signs Date Time Temp Pulse Resp B/P (MAP) Pulse Ox O2 Delivery O2 Flow Rate FiO2 04/27/19 04:00 97.6 69 18 125/60 (81) 95 04/27/19 00:00 97.0 64 18 129/62 (84) 98 04/26/19 21:00 Room Air 04/26/19 20:00 97.9 58 18 136/59 (84) 97 04/26/19 17:32 145/72 04/26/19 16:02 97.9 72 18 145/72 (96) 97 04/26/19 12:00 98.0 65 18 143/68 (93) 98 04/26/19 09:36 134/67 04/26/19 09:00 Room Air 04/26/19 08:00 98.7 63 19 134/67 (89) 98 Intake and Output 04/26/19 04/27/19 19:00 07:00 Intake Total 1305 ml 675 ml Balance 1305 ml 675 ml Intake Oral 480 ml IV Total 825 ml 675 ml # Voids 3 Laboratory Tests 04/27/19 05:42: White Blood Count [Pending], Red Blood Count [Pending], Hemoglobin [Pending], Hematocrit [Pending], Mean Corpuscular Volume [Pending], Mean Corpuscular Hemoglobin [Pending], Mean Corpuscular Hemoglobin Concent [Pending], Red Cell Distribution Width [Pending], Platelet Count [Pending], Mean Platelet Volume [ Pending], Neutrophils (%) (Auto) [Pending], Lymphocytes (%) (Auto) [Pending], Monocytes (%) (Auto) [Pending], Eosinophils (%) (Auto) [Pending], Basophils (%) (Auto) [Pending], Erythrocyte Sedimentation Rate [Pending], Sodium Level [ Pending], Potassium Level [Pending], Chloride Level [Pending], Carbon Dioxide Level [Pending], Blood Urea Nitrogen [Pending], Creatinine [Pending], Estimat Glomerular Filtration Rate [Pending], Glucose Level [Pending], Calcium Level [ Pending], Total Bilirubin [Pending], Aspartate Amino Transf (AST/SGOT) [Pending] , Alanine Aminotransferase (ALT/SGPT) [Pending], Alkaline Phosphatase [Pending] , C-Reactive Protein, Quantitative [Pending], Total Protein [Pending], Albumin [ Pending], Globulin [Pending] Height (Feet): 5 Height (Inches): 1.00 Weight (Pounds): 139 General Appearance: alert EENT: normal ENT inspection Neck: supple Cardiovascular: normal rate Respiratory/Chest: decreased breath sounds Abdomen: normal bowel sounds, non tender, soft Extremities: non-tender Frederick Arriaza MD Apr 27, 2019 07:21
[2019-04-27 07:29] LABS: ALANINE AMINOTRANSFERASE 45 U/L (12-78); ALBUMIN 3.5 G/DL (3.4-5.0); ALKALINE PHOSPHATASE 65 U/L (46-116); ANION GAP 8 mmol/L (5-15); ASPARTATE AMINO TRANSFERASE 51 U/L (15-37); BILIRUBIN,TOTAL 0.6 MG/DL (0.2-1.0); BLOOD UREA NITROGEN 5 mg/dL (7-18); CALCIUM 9.2 MG/DL (8.5-10.1); CARBON DIOXIDE 26 MMOL/L (21-32); CHLORIDE 103 MMOL/L (98-107); POTASSIUM 3.8 MMOL/L (3.5-5.1); SODIUM 137 MMOL/L (136-145)
--- NOTE | 2019-04-27 07:30 | NUR ---
NURSE NOTES: Received patient in bed, awake, alert, oriented x4, Moldovan speaking only, no acute distress noted, able to make her needs known. IV site is patent and intact, tolerating clear liquid diet well. Informed Dr Arriaza. siderails are upx3, call light is within reach, bed is locked, lowered, and alarm is on. Will continue to monitor for comfort and safety.
--- NOTE | 2019-04-27 07:33 | NUR ---
HAND-OFF: Report given to ALINE Vivas
[2019-04-27 08:00] VITALS: BP 112/60
[2019-04-27] MEDS: Docusate 100mg cap ORAL SCH (08:21)
[2019-04-27] MEDS: Aspirin EC 81mg tab ORAL SCH (08:21)
[2019-04-27] MEDS: Heparin 5000 units/ml inj SUBQ SCH (08:22)
[2019-04-27] MEDS: Lisinopril 20mg tab ORAL SCH (08:22)
--- NOTE | 2019-04-27 09:05 | NUR ---
NURSE NOTES: patient vomitted x1 few minutes after sched meds administered though clear liquid diet tolerated. patient was given Zofran IVP by Jose GARVIN per MD order. Patient also c/o itching on right wrist. benadryl po given as prescribed. Dr Arriaza notified with the problem for GI issue. will cont to monitor. Addendum: 04/27/19 at 0928 by TRISTON DEAL LVN no new order obtained.
[2019-04-27 11:43] VITALS: BP 138/63
[2019-04-27] MEDS ORDERED: DiphenhydrAMINE & Zinc 28g Cream TOPIC PRN (13:00)
--- NOTE | 2019-04-27 14:22 | NUR ---
NURSE NOTES: sent urine sample for u/a and c/s. urine color is clear yellow and no discomfort noted. will cont to monitor.
[2019-04-27 14:46] LABS: APPEARANCE,URINE CLEAR; BILIRUBIN, URINE NEGATIVE (NEGATIVE); COLOR,URINE PALE YELLOW; GLUCOSE, URINE (UA) NEGATIVE (NEGATIVE); KETONES,URINE NEGATIVE (NEGATIVE); LEUKOCYTE ESTERASE ,URINE 1+ (NEGATIVE); NITRITE,URINE NEGATIVE (NEGATIVE); PH,URINE 7 (4.5-8.0); PROTEIN,URINE NEGATIVE (NEGATIVE); UROBILINOGEN,URINE 1 MG/DL (0.0-1.0)
--- NOTE | 2019-04-27 15:44 | Discharge Summary ---
Discharge Summary Hospital Course Date of Admission Apr 22, 2019 at 02:16 Date of Discharge Admitting Diagnosis hyponatremia abdominal pain Reason for Hospitalization: hyponatremia, abdominal pain, biliary colic HPI Jennifer Harrison is a 74 year old female who was admitted on Apr 22, 2019 at 02:16 for Hyponatremia, abdominal pain, and biliary colic Consultations General Surgery Gastroenterology Hospital Course Jennifer Carranza is a 74-year-old female with history of hyponatremia, hypotension, Yuan's esophagus, gastritis and GERD, hiatal hernia presented to the hospital with nausea and vomiting. Exam unremarkable and she was alert and oriented x3. Laboratory investigations revealed sodium of 126, potassium 3.6, chloride 92, BUN 12, creatinine 0.8, glucose 102, normal transaminases, lipase 130, troponin negative, TSH 1.59, urine sodium 20. Urinalysis: 2+ leukoesterase, WBC 5-10, nitrite negative, RBC 0-2, bacteria few. CT head: Normal noncontrast CT head. Patient was given NS IVF for hypovolemic hyponatremia with resolution of hyponatremia. Patient had extensive workup for RUQ abdominal pain and nausea/vomiting including RUQ U/S that showed presence of gallstones, HIDA that was negative for cystic obstruction, and CT A/P that showed cholelithiasis and subcentimeter stone in gallbladder neck without gallbladder wall thickening or ductal dilatation. Patient's abdominal pain and nausea/vomiting resolved and diet was advanced slowly and tolerated low sodium diet on day of discharge. On day of discharge, patient c/o dysuria and increased urinary frequency with UA contaminated but with presence of WBC, bacteria and leuk est. Given patient's symptomatic and with mild suprapubic tenderness on exam (no CVA tenderness), patient also discharged on five days course of cefuroxime 250mg PO BID. Patient remained afebrile without leukocytosis. Patient will need to follow up with primary care doctor in 1 week and GI doctor to discuss possible elective cholecystectomy outpatient. Discharge Medications New Medications: Cefuroxime Axetil* (Cefuroxime*) 250 Mg Tablet 250 MG PO Q12HR for 5 Days, #10 TAB 0 Refills Ondansetron (Zofran) 4 Mg Tablet 4 MG ORAL Q6H PRN, #20 TAB 0 Refills Continued Medications: Aspirin* (Aspir 81*) 81 Mg Tablet.dr 81 MG ORAL DAILY, TAB (This prescription has been renewed) Lisinopril* (Lisinopril*) 10 Mg Tablet 10 MG ORAL BID, TAB (This prescription has been renewed) Omeprazole (Omeprazole) 40 Mg Capsule.dr 40 MG ORAL DAILY for 30 Days, #30 CAP 0 Refills Discharge Condition Upon Discharge: improving, stable Discharge Disposition Patient was discharged to home Discharge Diagnoses: (1) Hypertension (2) Yuan's esophagus (3) Hyponatremia (4) GERD (gastroesophageal reflux disease) (5) HTN (hypertension) (6) Dehydration (7) Electrolyte imbalance (8) PUD (peptic ulcer disease) (9) Dysuria (10) UTI (urinary tract infection) (11) Nausea & vomiting (12) Cholelithiasis (13) Biliary colic (14) History of hypertension (15) Abdominal pain Discharge Instructions Discharge Instructions Follow up with: primary care doctor, general surgery for possible elective cholecystectomy Call MD/Return to Hospital if: Fever, chills, worsening nausea/vomiting/ abdominal pain Diet: cardiac 2 GM Na, low fat Activity: as tolerated Keke Lehman M.D. Apr 27, 2019 15:44
[2019-04-27] MEDS ORDERED: ZOFRAN4 MG ORAL (15:49)
[2019-04-27] MEDS ORDERED: CEFUROXIME250 MG PO (15:49)
--- NOTE | 2019-04-27 15:50 | Surgery Progress Note ---
Surgery Progress Note Subjective Additional Comments Patient seen and examined at bedside with family present. CT scan noted. Labs noted. Long discussion was had with the patient and family. She states today she is not having any pain. She is able to tolerate regular diet. Objective Last 24 Hour Vital Signs Date Time Temp Pulse Resp B/P (MAP) Pulse Ox O2 Delivery O2 Flow Rate FiO2 04/27/19 11:43 98.7 67 18 138/63 (88) 95 04/27/19 08:22 112/60 04/27/19 08:00 98.4 75 18 112/60 (77) 98 04/27/19 07:56 Room Air 04/27/19 04:00 97.6 69 18 125/60 (81) 95 04/27/19 00:00 97.0 64 18 129/62 (84) 98 04/26/19 21:00 Room Air 04/26/19 20:00 97.9 58 18 136/59 (84) 97 04/26/19 17:32 145/72 04/26/19 16:02 97.9 72 18 145/72 (96) 97 I&O Intake and Output 04/26/19 04/27/19 19:00 07:00 Intake Total 1305 ml 750 ml Balance 1305 ml 750 ml Intake Oral 480 ml IV Total 825 ml 750 ml # Voids 3 Cardiovascular: RSR Respiratory: clear Abdomen: soft, flat, non-tender, present bowel sounds, non-distended Extremities: no edema, no tenderness, no cyanosis Laboratory Tests Test 04/27/19 05:42 04/27/19 14:10 White Blood Count 3.7 K/UL (4.8-10.8) L Red Blood Count 4.34 M/UL (4.20-5.40) Hemoglobin 12.2 G/DL (12.0-16.0) Hematocrit 36.5 % (37.0-47.0) L Mean Corpuscular Volume 84 FL (80-99) Mean Corpuscular Hemoglobin 28.2 PG (27.0-31.0) Mean Corpuscular Hemoglobin Concent 33.5 G/DL (32.0-36.0) Red Cell Distribution Width 12.2 % (11.6-14.8) Platelet Count 237 K/UL (150-450) Mean Platelet Volume 5.9 FL (6.5-10.1) L Neutrophils (%) (Auto) 57.0 % (45.0-75.0) Lymphocytes (%) (Auto) 26.9 % (20.0-45.0) Monocytes (%) (Auto) 9.8 % (1.0-10.0) Eosinophils (%) (Auto) 5.1 % (0.0-3.0) H Basophils (%) (Auto) 1.2 % (0.0-2.0) Erythrocyte Sedimentation Rate 18 MM/HR (0-30) Sodium Level 137 MMOL/L (136-145) Potassium Level 3.8 MMOL/L (3.5-5.1) Chloride Level 103 MMOL/L (98-107) Carbon Dioxide Level 26 MMOL/L (21-32) Anion Gap 8 mmol/L (5-15) Blood Urea Nitrogen 5 mg/dL (7-18) L Creatinine 1.0 MG/DL (0.55-1.30) Estimat Glomerular Filtration Rate mL/min (>60) Glucose Level 86 MG/DL (74-106) Calcium Level 9.2 MG/DL (8.5-10.1) Total Bilirubin 0.6 MG/DL (0.2-1.0) Aspartate Amino Transf (AST/SGOT) 51 U/L (15-37) H Alanine Aminotransferase (ALT/SGPT) 45 U/L (12-78) Alkaline Phosphatase 65 U/L (46-116) C-Reactive Protein, Quantitative < 0.4 mg/dL (0.00-0.90) Total Protein 7.0 G/DL (6.4-8.2) Albumin 3.5 G/DL (3.4-5.0) Globulin 3.5 g/dL Albumin/Globulin Ratio 1.0 (1.0-2.7) Urine Color Pale yellow Urine Appearance Clear Urine pH 7 (4.5-8.0) Urine Specific [place] 1.010 (1.005-1.035) Urine Protein Negative (NEGATIVE) Urine Glucose (UA) Negative (NEGATIVE) Urine Ketones Negative (NEGATIVE) Urine Blood Negative (NEGATIVE) Urine Nitrite Negative (NEGATIVE) Urine Bilirubin Negative (NEGATIVE) Urine Urobilinogen 1 MG/DL (0.0-1.0) H Urine Leukocyte Esterase 1+ (NEGATIVE) H Urine RBC 0 /HPF (0 - 2) Urine WBC 10-15 /HPF (0 - 2) H Urine Squamous Epithelial Cells Moderate /LPF (NONE/OCC) H Urine Amorphous Sediment Few /LPF (NONE) H Urine Bacteria Few /HPF (NONE) Plan Problems: (1) Abdominal pain Assessment & Plan: 74F with RUQ abdominal discomfort. currently n/v resolved. no fever or chills. labs okay. no leukocytosis. no shift. lft's okay US with gallstones but no signs of acute inflammation exam benign. mild discomfort in RUQ tolerating diet but not much appetite n/v today right upper and lower pain HIDA noted Ultrasound noted HIDA noted CT scan noted. No etiology for patient's persistent pain nausea and vomiting noted. Fortunately today patient states that pain is significantly improved if not absent. Has been tolerating diet. I reviewed all CT and imaging findings with patient and the family at bedside. I gave him copies of all notes including labs as well. We reviewed everything discussed everything all questions were answered. Patient is not having acute problem and etiology of her pain was not found but now her pain is resolved. Furthermore her intermittent nausea and emesis do not have a direct clinical correlation as all imaging as well as endoscopy were negative except for minimal findings such as gastritis. Recommend discharge. Discussed this with the family. Remainder of work-up for patient's nausea and vomiting and intermittent pain can be done as an outpatient safely. Recommend following with PCP upon discharge this week to continue work-up. no acute surgical intervention planned okay for diet as tolerated AM labs thank you will follow with recs (2) Biliary colic Vlad Garcia Apr 27, 2019 15:50
--- NOTE | 2019-04-27 15:52 | Discharge Instructions ---
Discharge Instructions Discharge Instructions Follow up with: Primary care doctor, general surgery Call MD/Return to Hospital if: Fever, chills, worsening abdominal pain, nausea or vomiting Diet: cardiac 2 GM Na, low fat Resume Normal Activity?: Yes Activity: as tolerated Keke Lehman M.D. Apr 27, 2019 15:52
[2019-04-27 16:00] VITALS: BP 140/56
--- NOTE | 2019-04-27 16:30 | NUR ---
NURSE NOTES: DISCHARGE HOME ACCOMPANIED BY SON, BRITTANY. DISCHARGE INSTRUCTIONS GIVEN. REMOVED IV HEPLOCK. RX MADE BY PMD. IN STABLE CONDITION. NO ACUTE RESP DISTRESS NOTED. PERSONAL BELONGINGS NOTED.
--- NOTE | 2019-04-28 16:33 | NUR ---
*-* INSURANCE *-* UPDATED CLINICALS AND DISCHARGE SUMMARY HAVE BEEN FAXED TO: [employer]#[id number] Produce Department Manager:Luther #[phone]
== END 2019-04-27 16:30 | disposition home or self-care (01) | DRG 641 ==
LOC: EMR 23:59 → 4E 04-22 02:16 → EDBEDREQ 04-22 03:21
DX: E87.1 Hypo-osmolality and hyponatremia (principal); E86.0 Dehydration; K29.70 Gastritis, unspecified, without bleeding; K21.9 Gastro-esophageal reflux disease without esophagitis; E87.6 Hypokalemia; K22.70 Barrett's esophagus without dysplasia; I10 Essential (primary) hypertension; K27.9 Peptic ulcer, site unspecified, unspecified as acute or chronic, without hemorrhage or perforation; K80.50 Calculus of bile duct without cholangitis or cholecystitis without obstruction; K59.00 Constipation, unspecified
CPT/HCPCS: 36415; 70450; 74177; 76700; 78266; 80048; 80053; 80076; 81001; 82150; 83690; 84300; 84443; 84484; 85025; 85610; 85651; 85730; 86140; 87086; 93005; 96374; 99285; J2405